=== PATIENT | female | born 1955 | race Caucasian/White ===

== ENCOUNTER 2017-08-15 00:34 | Emergency (ER) | payer MEDICARE, MEDICAID, SELFPAY | END 2017-08-15 03:18 | disposition home or self-care (01) | PROVIDERS: Emergency Provider Emergency Medicine; Visit Provider Emergency Medicine | DX: R10.9 Unspecified abdominal pain (principal); R11.0 Nausea; I10 Essential (primary) hypertension; E78.5 Hyperlipidemia, unspecified; K21.9 Gastro-esophageal reflux disease without esophagitis; F41.9 Anxiety disorder, unspecified; F32.9 Major depressive disorder, single episode, unspecified; Z79.82 Long term (current) use of aspirin; F17.210 Nicotine dependence, cigarettes, uncomplicated; I25.2 Old myocardial infarction; Z79.51 Long term (current) use of inhaled steroids; Z85.72 Personal history of non-Hodgkin lymphomas; Z79.899 Other long term (current) drug therapy; Z88.5 Allergy status to narcotic agent | CPT/HCPCS: 74176; 80053; 82150; 83690; 85025; 99283 ==

== ENCOUNTER → 2017-12-23 11:48 | Outpatient (CLI) | payer MEDICARE, MEDICAID, SELFPAY ==
[2017-12-23 12:28] LABS: Basophils % 0.5 % (0.1-2.0); Eosinophils # 0.1 K/mm3 (0.0-0.4); Eosinophils % 1.5 % (0.1-12.0); Hematocrit 42.4 % (37.0-47.0); Hemoglobin 14.2 g/dL (12.2-16.2); Lymphocytes # 1.5 K/mm3 (0.7-4.5); Lymphocytes % 26.2 K/mm3 (10-50); Mean Corpuscular HGB Conc 33.5 g/dL (31.8-35.4); Mean Corpuscular Hemoglobin 33.1 pg (27.0-31.2); Mean Corpuscular Volume 98.7 fl (81-99); Mean Platelet Volume 7.2 fl (7.4-10.4); Monocytes # 0.5 K/mm3 (0.1-1.0); Monocytes % 8.5 % (1.7-9.3); Neutrophils # 3.5 K/mm3 (1.8-7.8); Neutrophils % 63.2 % (37.0-80.0); Platelet Count 217 K/mm3 (142-424); Red Blood Count 4.29 M/mm3 (4.20-5.40); Red Cell Distribution Width 13.2 % (11.5-17.5); White Blood Count 5.5 K/mm3 (4.8-10.8)
[2017-12-23 14:32] LABS: Alanine Aminotransferase 18 U/L (12-78); Albumin Level 3.8 gm/dL (3.4-5.0); Albumin/Globulin Ratio 1.2 (1.1-1.8); Alkaline Phosphatase 115 U/L (46-116); Anion Gap 16.2 mEq/L (5-15); Bilirubin,Total 0.1 mg/dL (0.2-1.0); Blood Urea Nitrogen 10 mg/dL (7-18); Calcium 9.6 mg/dL (8.5-10.1); Carbon Dioxide 24 mmol/L (21.0-32.0); Chloride 106 mmol/L (98-107); Chol/HDL Ratio 5.5 (1-3.5); Cholesterol 214 mg/dL (140-200); Creatinine,Serum 0.99 mg/dL (0.55-1.02); Estimated Glomerular Filt Rate 56 ml/min (>60); GFR (African American) 68 ML/MIN (>60); Globulin 3.3 gm/dl (1.3-3.2); Glucose 87 mg/dL (74-106); HDL Cholesterol 39 mg/dL (29-89); LDL Cholesterol 123 mg/dL (0-130); Sodium 142 mmol/L (136-145); Total Protein,Serum 7.1 gm/dL (6.4-8.2); Triglycerides 261 mg/dL (30-200); VLDL Cholesterol 52 mg/dL (0-40)
[2017-12-23 14:42] LABS: Aspartate Amino Transferase 11 U/L (15-37); Potassium 4.2 mmoL/L (3.5-5.1)
== END ==
PROVIDERS: Visit Provider Nurse Practitioner Family
DX: I10 Essential (primary) hypertension (principal); E78.4 Other hyperlipidemia; E55.9 Vitamin D deficiency, unspecified
CPT/HCPCS: 36415; 80053; 80061; 85025

== ENCOUNTER → 2018-04-22 12:35 | Outpatient (CLI) | payer MEDICARE, MEDICAID, SELFPAY ==
--- NOTE | 2018-04-22 12:39 | XR_ITS ---
XR DEXA axial skeleton HISTORY: ITS.REASON: POST MENOPAUSAL ORDERING PHYSICIAN: Glory Panda PATIENT AGE: 63 years COMPARISON: 03/12/2016 FINDINGS: The BMD measured at the Left femoral neck is 0.679 g/cm squared with a T score of -2.6. This is considered Osteoporotic according to the World Health Organization criteria. Fracture risk is High. Treatment is advised. There is severe lumbar scoliosis convex left with L1 L4 density of -1.8. The L spine density has decreased by 22% in the hip density is unchanged IMPRESSION: Osteoporosis with high fracture risk. Treatment suggested. Recommend follow-up exam March 2019 Severe lumbar scoliosis convex left
--- NOTE | 2018-04-22 12:40 | MM_ITS ---
MM Dig screening mamm BI w/CAD CAD Screening COMPARISON: Digital mammograms with CAD 04/15/2017 and 03/12/2016 INDICATION: There is a history of breast cancer patient's paternal aunt. TECHNIQUE: Standard CC and MLO images were obtained. R2 CAD reviewed. FINDINGS: Moderate diffuse heterogenic fibroglandular densities are seen throughout both breasts. There are multiple scattered benign-appearing calcifications throughout both breasts. There is no suspicious lesion and there are no suspicious microcalcifications. IMPRESSION: Moderate diffuse breast density with no suspicious lesion seen BI-RADS Category: 2 Benign Finding(s) RECOMMENDED FOLLOW-UP: 1YR - 1 YEAR FOLLOW-UP (A letter has been sent to the patient regarding results of the study.)
== END ==
PROVIDERS: Family Provider Nurse Practitioner Family; PCP Nurse Practitioner Family; Visit Provider Nurse Practitioner Family
DX: Z12.31 Encounter for screening mammogram for malignant neoplasm of breast (principal); Z78.0 Asymptomatic menopausal state
CPT/HCPCS: 77067; 77080

== ENCOUNTER → 2018-06-30 15:30 | Outpatient (CLI) | payer MEDICARE, MEDICAID, SELFPAY ==
[2018-06-30 16:02] LABS: Basophils % 0.6 % (0.1-2.0); Eosinophils % 0.3 % (0.1-12.0); Hematocrit 37.2 % (37.0-47.0); Hemoglobin 13.3 g/dL (12.2-16.2); Lymphocytes # 1.7 K/mm3 (0.7-4.5); Lymphocytes % 33.6 K/mm3 (10-50); Mean Corpuscular HGB Conc 35.8 g/dL (31.8-35.4); Monocytes # 0.3 K/mm3 (0.1-1.0); Monocytes % 6.2 % (1.7-9.3); Neutrophils % 59.3 % (37.0-80.0); Platelet Count 184 K/mm3 (142-424); Red Blood Count 3.92 M/mm3 (4.20-5.40); Red Cell Distribution Width 13.1 % (11.5-17.5)
[2018-06-30 18:00] LABS: Alanine Aminotransferase 17 U/L (12-78); Albumin/Globulin Ratio 1.3 (1.1-1.8); Alkaline Phosphatase 116 U/L (46-116); Anion Gap 14.8 mEq/L (5-15); Aspartate Amino Transferase 11 U/L (15-37); Bilirubin,Total 0.3 mg/dL (0.2-1.0); Blood Urea Nitrogen 9 mg/dL (7-18); Calcium 9.1 mg/dL (8.5-10.1); Carbon Dioxide 23 mmol/L (21.0-32.0); Chloride 108 mmol/L (98-107); Chol/HDL Ratio 5.3 (1-3.5); Cholesterol 210 mg/dL (140-200); Creatinine,Serum 1.02 mg/dL (0.55-1.02); Estimated Glomerular Filt Rate 54 ml/min (>60); GFR (African American) 66 ML/MIN (>60); Globulin 3.1 gm/dl (1.3-3.2); Glucose 99 mg/dL (74-106); HDL Cholesterol 40 mg/dL (29-89); LDL Cholesterol 126 mg/dL (0-130); Potassium 3.8 mmoL/L (3.5-5.1); Sodium 142 mmol/L (136-145); Total Protein,Serum 7.1 gm/dL (6.4-8.2); Triglycerides 220 mg/dL (30-200); VLDL Cholesterol 44 mg/dL (0-40)
[2018-07-02 18:43] LABS: Vitamin D 25 Hydroxy 36.2 ng/mL (30.0-100.0)
== END ==
PROVIDERS: Visit Provider Nurse Practitioner Family
DX: E55.9 Vitamin D deficiency, unspecified (principal); I10 Essential (primary) hypertension; E78.49 Other hyperlipidemia
CPT/HCPCS: 36415; 80053; 80061; 82652; 85025

== ENCOUNTER → 2018-10-02 13:38 | Outpatient (CLI) | payer MEDICARE, MEDICAID, SELFPAY ==
[2018-10-02 14:33] LABS: Basophils % 0.2 % (0.1-2.0); Eosinophils % 0.2 % (0.1-12.0); Hematocrit 40.1 % (37.0-47.0); Hemoglobin 13.5 g/dL (12.2-16.2); Lymphocytes # 1.5 K/mm3 (0.7-4.5); Lymphocytes % 31.8 % (10-50); Mean Corpuscular HGB Conc 33.6 g/dL (31.8-35.4); Mean Corpuscular Hemoglobin 32.4 pg (27.0-31.2); Mean Corpuscular Volume 96.6 fl (81-99); Mean Platelet Volume 6.7 fl (7.4-10.4); Monocytes # 0.3 K/mm3 (0.1-1.0); Monocytes % 6.2 % (1.7-9.3); Neutrophils % 61.6 % (37.0-80.0); Platelet Count 215 K/mm3 (142-424); Red Blood Count 4.15 M/mm3 (4.20-5.40); Red Cell Distribution Width 13.8 % (11.5-17.5); White Blood Count 4.8 K/mm3 (4.8-10.8)
[2018-10-02 15:13] LABS: Alanine Aminotransferase 20 U/L (12-78); Albumin Level 3.9 gm/dL (3.4-5.0); Albumin/Globulin Ratio 1.3 (1.1-1.8); Alkaline Phosphatase 91 U/L (46-116); Anion Gap 17.1 mEq/L (5-15); Aspartate Amino Transferase 13 U/L (15-37); Bilirubin,Total 0.3 mg/dL (0.2-1.0); Blood Urea Nitrogen 12 mg/dL (7-18); Calcium 9.2 mg/dL (8.5-10.1); Carbon Dioxide 23 mmol/L (21.0-32.0); Chloride 107 mmol/L (98-107); Cholesterol 217 mg/dL (140-200); Creatinine,Serum 0.99 mg/dL (0.55-1.02); Estimated Glomerular Filt Rate 56 ml/min (>60); GFR (African American) 68 ML/MIN (>60); Globulin 2.9 gm/dl (1.3-3.2); Glucose 99 mg/dL (74-106); HDL Cholesterol 43 mg/dL (29-89); LDL Cholesterol 135 mg/dL (0-130); Potassium 4.1 mmoL/L (3.5-5.1); Sodium 143 mmol/L (136-145); Total Protein,Serum 6.8 gm/dL (6.4-8.2); Triglycerides 193 mg/dL (30-200); VLDL Cholesterol 39 mg/dL (0-40)
[2018-10-03 11:05] LABS: Vitamin D 25 Hydroxy 34.3 ng/mL (30.0-100.0)
== END ==
PROVIDERS: PCP Nurse Practitioner Family; Visit Provider Nurse Practitioner Family
DX: I10 Essential (primary) hypertension (principal); E55.9 Vitamin D deficiency, unspecified; E78.49 Other hyperlipidemia
CPT/HCPCS: 36415; 80053; 80061; 82652; 85025

== ENCOUNTER → 2019-04-24 15:45 | Outpatient (CLI) | payer MEDICARE, MEDICAID, SELFPAY ==
[2019-04-24 16:22] LABS: Basophils % 0.3 % (0.1-2.0); Hematocrit 40.2 % (37.0-47.0); Hemoglobin 13.4 g/dL (12.2-16.2); Lymphocytes # 1.5 K/mm3 (0.7-4.5); Mean Corpuscular HGB Conc 33.4 g/dL (31.8-35.4); Mean Corpuscular Hemoglobin 32.4 pg (27.0-31.2); Mean Platelet Volume 6.8 fl (7.4-10.4); Monocytes # 0.4 K/mm3 (0.1-1.0); Monocytes % 7.1 % (1.7-9.3); Neutrophils # 3.4 K/mm3 (1.8-7.8); Neutrophils % 64.7 % (37.0-80.0); Platelet Count 214 K/mm3 (142-424); Red Blood Count 4.15 M/mm3 (4.20-5.40); Red Cell Distribution Width 13.5 % (11.5-17.5); White Blood Count 5.2 K/mm3 (4.8-10.8)
[2019-04-24 18:16] LABS: Alanine Aminotransferase 24 U/L (12-78); Albumin/Globulin Ratio 1.3 (1.1-1.8); Alkaline Phosphatase 97 U/L (46-116); Anion Gap 16.1 mEq/L (5-15); Aspartate Amino Transferase 10 U/L (15-37); Bilirubin,Total 0.2 mg/dL (0.2-1.0); Blood Urea Nitrogen 11 mg/dL (7-18); Calcium 9.5 mg/dL (8.5-10.1); Carbon Dioxide 23 mmol/L (21.0-32.0); Chloride 108 mmol/L (98-107); Chol/HDL Ratio 3.9 (1-3.5); Cholesterol 177 mg/dL (140-200); Creatinine,Serum 1.08 mg/dL (0.55-1.02); Estimated Glomerular Filt Rate 51 ml/min (>60); GFR (African American) 61 ML/MIN (>60); Glucose 89 mg/dL (74-106); HDL Cholesterol 45 mg/dL (29-89); LDL Cholesterol 89 mg/dL (0-130); Potassium 4.1 mmoL/L (3.5-5.1); Sodium 143 mmol/L (136-145); Triglycerides 213 mg/dL (30-200); VLDL Cholesterol 43 mg/dL (0-40)
[2019-04-26 09:47] LABS: Vitamin D 25 Hydroxy 28.1 ng/mL (30.0-100.0)
== END ==
PROVIDERS: Visit Provider Nurse Practitioner Family
DX: E78.49 Other hyperlipidemia (principal); E55.9 Vitamin D deficiency, unspecified
CPT/HCPCS: 36415; 80053; 80061; 82652; 85025

== ENCOUNTER → 2019-08-09 10:58 | Outpatient (CLI) | payer MEDICARE, MEDICAID, SELFPAY ==
--- NOTE | 2019-08-09 11:02 | MM_ITS ---
PROCEDURE: MM DIG SCREENING MAMM BI W/CAD CLINICAL INDICATION: SCREENING There is a history of breast cancer patient's paternal aunt. COMPARISON: [facility] DIG MAMM-SCREEN CHASE from 03/12/2016 [facility] DIG MAMM-SCREEN CHASE W/CAD from 04/15/2017 [facility] MM Dig screening mamm BI w/CAD from 04/22/2018 TECHNIQUE: Standard CC and MLO images were obtained. R2 CAD reviewed. FINDINGS: Moderate somewhat heterogenic fibroglandular densities are seen the central portions of both breasts and the findings of bilateral and symmetrical. There are multiple scattered benign-appearing micro and macrocalcifications in each breast. There is a mole marker left breast. There is faint arterial calcification in each breast. There is a stable asymmetric density upper left breast only definitely seen on the MLO view. There is no suspicious lesion and no suspicious microcalcifications. IMPRESSION: Moderate heterogenic breast density with no suspicious lesions seen BI-RAD Category: 2 Benign Finding(s) FOLLOW-UP: 1YR 1 Year Follow-up (A letter has been sent to the patient regarding results of the study.) Dictated by: Dr. Polo Diaz MD 08/13/2019 14:[address] Polo Diaz MD in [place] 08/13/2019 14:41
== END ==
PROVIDERS: PCP Nurse Practitioner Family; Visit Provider Nurse Practitioner Family
DX: Z12.31 Encounter for screening mammogram for malignant neoplasm of breast (principal)
CPT/HCPCS: 77067

== ENCOUNTER → 2020-03-18 15:04 | Outpatient (POV) | payer MEDICARE, MEDICAID, SELFPAY | PROVIDERS: PCP Nurse Practitioner Family; Visit Provider Nurse Practitioner Family | DX: Z00.00 Encounter for general adult medical examination without abnormal findings (principal) ==

== ENCOUNTER → 2020-03-21 10:31 | Outpatient (CLI) | payer MEDICARE, MEDICAID, SELFPAY ==
[2020-03-21 10:59] LABS: Basophils % 0.7 % (0.1-2.0); Eosinophils % 0.3 % (0.1-12.0); Hematocrit 37.5 % (37.0-47.0); Hemoglobin 12.8 g/dL (12.2-16.2); Lymphocytes # 2.4 K/mm3 (0.7-4.5); Lymphocytes % 39.7 % (10-50); Mean Corpuscular Hemoglobin 32.9 pg (27.0-31.2); Mean Corpuscular Volume 96.7 fl (81-99); Mean Platelet Volume 7.9 fl (7.4-10.4); Monocytes # 0.4 K/mm3 (0.1-1.0); Monocytes % 6.4 % (1.7-9.3); Neutrophils # 3.2 K/mm3 (1.8-7.8); Neutrophils % 52.9 % (37.0-80.0); Platelet Count 166 K/mm3 (142-424); Red Blood Count 3.88 M/mm3 (4.20-5.40); Red Cell Distribution Width 14.1 % (11.5-17.5)
[2020-03-21 11:22] LABS: Chloride 103 mmol/L (98-107)
[2020-03-21 11:23] LABS: Potassium 3.7 mmoL/L (3.5-5.1); Sodium 136 mmol/L (136-145)
[2020-03-21 11:25] LABS: Alanine Aminotransferase 18 U/L (12-78); Alkaline Phosphatase 76 U/L (38-126); Anion Gap 12.7 mEq/L (5-15); Aspartate Amino Transferase 21 U/L (14-36); Bilirubin,Total 0.3 mg/dl (0.2-1.3); Blood Urea Nitrogen 9 mg/dl (7-17); Carbon Dioxide 24 mmol/L (22.0-30.0); Estimated Glomerular Filt Rate 55 ml/min (>60); GFR (African American) 67 ML/MIN (>60)
[2020-03-21 11:26] LABS: Albumin Level 4.2 g/dl (3.5-5.0); Albumin/Globulin Ratio 1.7 (1.1-1.8); Calcium 9.1 mg/dl (8.4-10.2); Globulin 2.5 g/dL (1.3-3.2); Glucose 90 mg/dl (74-100); Total Protein,Serum 6.7 g/dl (6.3-8.2)
[2020-03-22 18:05] LABS: Deamidated Gliadin Abs, IgA 3 units (0-19); Deamidated Gliadin Abs, IgG 1 units (0-19); Endomysial IgA Antibody Negative (Negative); Tissue Transglutaminase IgA Ab <2 U/mL (0-3); Tissue Transglutaminase IgG Ab 2 U/mL (0-5)
[2020-03-23 08:51] LABS: Reticulin IgA Antibody Negative titer (Neg:<1:2.5)
[2020-03-26 05:38] LABS: Saccharomyces cerevisiae, IgA <20.0 Units (0.0-24.9); Saccharomyces cerevisiae, IgG <20.0 Units (0.0-24.9)
== END ==
PROVIDERS: Visit Provider Nurse Practitioner Family
DX: R10.84 Generalized abdominal pain (principal); R14.0 Abdominal distension (gaseous)
CPT/HCPCS: 36415; 80053; 83516; 85025; 86255; 86256; 86671

== ENCOUNTER → 2020-03-26 08:48 | Outpatient (CLI) | payer MEDICARE, MEDICAID, SELFPAY ==
--- NOTE | 2020-03-26 08:58 | CT_ITS ---
PROCEDURE: CT ABDOMEN PELVIS W CON CLINICAL INDICATION: ABD PAIN BLOATING DIARRHEA History of non-Hodgkin's lymphoma. COMPARISON: ABDPELW/O CT ABD PELVIS W/O CONTRAST from 08/15/2017 TECHNIQUE: IV Contrast: 75ML OPTIRAY 350 Oral Contrast 450ml Redicat Axial images obtained with sagittal and coronal reformats. All CT scans at the facility use one or more dose reduction, viz: automated exposure control, ma/kV adjustment per patient size (including targeted exams where dose is matched to indication, i.e. head), or iterative reconstruction technique. FINDINGS: LOWER THORAX: No acute finding. Fibrotic atelectatic changes in the right middle lobe inferiorly and in left lung base has increased since the prior exam. Redemonstrated a moderate size hiatal hernia. ABDOMEN & PELVIS: Hepatobiliary: There is decreased attenuation of the liver consistent with steatosis. There is no demonstrated discrete hepatic lesion. The gallbladder is surgically absent. The bile ducts are within normal limits. Pancreas: There is no demonstrated pancreatic mass or cyst. No ductal dilatation. Spleen: The spleen is not enlarged. Unremarkable. Adrenals: The adrenal glands are normal. Kidneys, ureters and bladder: Both kidneys have normal morphology. The left kidney is smaller compared to the right. Again noted a small nonobstructing left renal calculus. Mildly dilated partial left extrarenal pelvis. There is no hydronephrosis. Both ureters have a normal course and caliber. The urinary bladder is unremarkable with uniform wall thickness. No ureteral or bladder calculus is identified. Gastrointestinal: The stomach and small bowel are unremarkable with no evidence of obstruction or inflammation. Moderate amount of mixed liquid and formed stool is seen in the colon including the rectosigmoid. No demonstrated mucosal thickening or evidence of bowel obstruction. No findings to suggest acute appendicitis. Reproductive organs: Possible prior hysterectomy. Unremarkable adnexal regions. Lymphatic system: There is no adenopathy demonstrated within the abdomen/pelvis. Vasculature: There is diffuse atheromatous calcification and tortuosity of the abdominal aorta and iliac arteries. There is no aortic aneurysm. Peritoneum: No free fluid, free air or inflammation. Abdominal wall and musculoskeletal: Redemonstrated severe S-shaped curvature of the thoracolumbar spine. No acute fracture. Multilevel moderately advanced degenerative disc/endplate spondylosis. Bilateral SI joint arthrosis. A small umbilical and left inguinal hernia containing fat. IMPRESSION: 1.Moderate-size hiatal hernia. Nonobstructing left renal calculus. 2. Moderate amount of mixed liquid and formed stool is seen in the colon and rectosigmoid, consistent with given history of diarrhea. No demonstrated abnormal mucosal thickening or evidence of bowel obstruction. 3. Severe scoliosis. Multilevel moderately advanced degenerative lumbosacral spondylosis. Dictated by: Reynaldo Burt 03/26/2020 10:18 Electronically signed by Reynaldo Burt in [facility] 03/26/2020 10:18
== END ==
PROVIDERS: PCP Nurse Practitioner Family; Visit Provider Nurse Practitioner Family
DX: R10.84 Generalized abdominal pain (principal); R14.0 Abdominal distension (gaseous); R19.7 Diarrhea, unspecified
CPT/HCPCS: 74177; Q9967

== ENCOUNTER → 2020-05-09 10:29 | Outpatient (POV) | payer MEDICARE, MEDICAID, SELFPAY ==
[2020-05-09 10:51] VITALS: BP 142/77; PULSE 77; RESP 18; TEMP 36.6; O2SAT 98; BMI 23.1
--- NOTE | 2020-05-09 12:12 | HMH.PMCON ---
Assessment and Plan (1) Sacroiliitis Current visit: Yes Status: Chronic Category: Medical Code(s): M46.1 - Sacroiliitis, not elsewhere classified (2) Low back pain Current visit: Yes Status: Chronic Category: Medical Code(s): M54.5 - Low back pain (3) Lumbar radiculopathy, chronic Current visit: Yes Status: Chronic Category: Medical Code(s): M54.16 - Radiculopathy, lumbar region (4) Scoliosis Current visit: Yes Status: Chronic Category: Medical Code(s): M41.9 - Scoliosis, unspecified - Assessment and plan all Dx Assessment and Plan for all problems:: We will schedule the patient for bilateral SI joint injections. She does have notable tenderness over bilateral SI joints and a positive Clementina, Anderson's, distraction test. We will need to contact her oncologist to make sure she is able to have corticosteroids with her injection. If she is unable to undergo injections with corticosteroids, we will use lidocaine only. Patient did have questions concerning spinal cord stimulation. She was given educational information today. If the injections do not give her relief, this may be an option for her in the future. She does have significant scoliosis. She has been instructed to contact clinic if she has any concerns before next appointment. The patient and I specifically discussed risk factors for COVID19. These risks include, but are not limited to age greater than 60, heart or lung disease, diabetes, immunosuppression, and travel. We also discussed NSAIDs may worsen COVID19 infection or symptoms. Patient should not use NSAIDs to treat COVID19 signs or symptoms. Patient was also informed that any type of corticosteroid of any form (oral or injection) will decrease the patient's immune system response and may increase the likelihood of COVID19 infection [address] symptoms[address] Sue has reviewed this note and agrees with this plan of care. This note was dictated using voice recognition software and make contain errors or omissions. HPI - Data of Consult Patient: new to practice Consult date: 05/09/20 Requesting Physician: Tena Cantu APRN Primary Care Provider: Glory Panda - Consult Narrative Reason for consult: Chronic low back pain History of present illness: Ms. Arredondo is a 65 year old female who presents today for consultation for chronic low back pain. Patient was previously seen with Dr. Downey for chronic pain. Unfortunately, patient says she filled a pill count in his office and was discharged. She was getting oral opiates as well as injective therapy. Patient says she was getting trigger point and SI injections there. Patient does have imaging that does show scoliosis. She does have notable scoliosis. She also says that she walks with a cane and uses a wheelchair. She says she is having worsening pain into her low back area. She does have multiple comorbidities. She has been treated in the past for non-Hodgkin's lymphoma. She says that her oncologist has her undergoing IV therapy for severe osteoporosis. She says that she is unsure if she is unable to take IV corticosteroids. She says that she has also had medial branch blocks in Dr. Downey's office, however, got little relief with those injections. Patient says she feels that the trigger point injections as well as the SI injections gave her the most relief. She does rate her pain a 6 out of 10 today. She says she feels like she is having a bruising feeling above bilateral butt cheeks . Patient says that the pain is worse with standing and walking and improves with sitting. She has tried physical therapy in the past along with home stretching. She is currently taking diclofenac. Patient does understand that we will not be providing any type of oral opiates. She is in agreement she would like to try injective therapies. CC: Tena Cantu APRN [facility] History I have reviewed the patient's past medical history: Yes Medical History
== END ==
PROVIDERS: PCP Nurse Practitioner Family; Visit Provider Clinical Nurse Specialist Family Health
DX: M46.1 Sacroiliitis, not elsewhere classified (principal); M54.5 Low back pain; M54.16 Radiculopathy, lumbar region; M41.9 Scoliosis, unspecified
CPT/HCPCS: 99202

== ENCOUNTER → 2020-05-24 09:19 | Day surgery (SDC) | payer MEDICARE, MEDICAID, SELFPAY ==
[2020-05-24 10:03] VITALS: BP 128/71; PULSE 69; RESP 17; TEMP 36.1; O2SAT 97; BMI 29.0
[2020-05-24 10:56] VITALS: BP 132/74; PULSE 71; RESP 18; O2SAT 98
--- NOTE | 2020-05-24 11:15 | HMH.PMPROC ---
- Procedure Date: 05/24/20 Time: 11:15 Anesthesiologist:: Todd Sue MD Complications:: None Pre-procedure Diagnosis:: Sacroiliitis Post-procedure Diagnosis:: Same Indications for Procedure:: Patient is a pleasant 65-year-old white female who we are treating for bilateral hip pain. She is tender over both SI joints. She also has severe scoliosis. She was discharged from Dr. Downey's practice for missing a pill count. She was on [place] at that time I believe. She has a positive Anderson's test bilaterally. She has a positive SI joint compression test bilaterally. She has a positive Clementina test bilaterally. I believe she would benefit from bilateral SI joint injections under fluoroscopy. We will do this today. Procedure Details:: B/L SI joint injection under fluoroscopy Informed consent was obtained and the risks and benefits of the procedure was explained to the patient. The patient was taken to the procedure room and placed prone on the procedure table. The patient was prepped using ChloraPrep. The skin and subcutaneous tissues overlying the SI joints were anesthetized using lidocaine. I placed a 22-gauge needle first in the left SI joint and second in the right SI joint. Needle placement was confirmed with dye. After this we injected 5 mL bupivacaine 0.25% and Depo-Medrol 40 mg into each SI joint. Patient tolerated the procedure well with no complication. Plan and Disposition:: Given the severity of her scoliosis and lumbar spine I believe she would benefit from intrathecal therapy. We will need a psychological evaluation as she has previously been discharged from a pain clinic to see if she would be a candidate.
== END ==
PROVIDERS: Visit Provider Anesthesiology
DX: M46.1 Sacroiliitis, not elsewhere classified (principal); Z72.0 Tobacco use; I10 Essential (primary) hypertension; E78.5 Hyperlipidemia, unspecified; K21.9 Gastro-esophageal reflux disease without esophagitis; F41.9 Anxiety disorder, unspecified; F31.9 Bipolar disorder, unspecified; Z85.028 Personal history of other malignant neoplasm of stomach; Z90.49 Acquired absence of other specified parts of digestive tract; Z90.711 Acquired absence of uterus with remaining cervical stump; Z79.899 Other long term (current) drug therapy
CPT/HCPCS: 27096; G0260; J1030; Q9966

== ENCOUNTER → 2020-06-13 11:04 | Outpatient (POV) | payer MEDICARE, MEDICAID, SELFPAY ==
[2020-06-13 11:36] VITALS: BP 123/77; PULSE 74; RESP 18; TEMP 36.8; O2SAT 98; BMI 29.9
--- NOTE | 2020-06-13 11:55 | HMH.PAINSOAP ---
[facility] Pain Management SOAP Note Subjective:: Patient is a 65-year-old white female who presents today for follow-up. She has been treated for chronic low back pain with bilateral hip pain. She has severe scoliosis as well and has degenerative disc disease of her lumbar spine. She was treated with bilateral SI joint injections and did get some relief, however, her pain is continuing. She would like to repeat the bilateral SI joint injections. She was seeing Dr. Downey in the past for pain management, however, she missed a pill count. As result she was discharged from their clinic. She was on [place] at that time. The patient did discuss intrathecal therapy with Dr. Villegas at her last visit. The patient was interested in this. She has had injection therapy on multiple occasions in the past and does get relief, however, the relief is only short-term. She does rate her pain a 6 out of 10 today. Her pain is worse with standing and walking and does not necessarily improve with sitting. Patient did discuss a psychological evaluation with her therapist, however, the office does not provide psychological evaluations for implanted devices. As result, she is here today to discuss a consult with a another therapist. Review of Systems General: No recent weight changes, no fever, no sleep disturbances Respiratory: No cough, no shortness of air, no recurring pulmonary infections Cardiovascular/peripheral vascular: No chest pain, no palpitations, no edema, no shortness of breath Gastrointestinal: No new onset incontinence, normal bowel movements reported Genitourinary: No new onset incontinence Musculoskeletal: Low back pain, bilateral hip pain, bilateral buttock pain, bilateral lower extremity pain Psychiatric: Normal mood/affect Neurological: [Denies weakness in extremities], [denies balance issues] Objective:: Physical exam General: Alert and oriented x3, no acute distress, pleasant and cooperative, [on room air] Lungs: Respirations even and unlabored, symmetrical chest expansion Eyes: PERRL Musculoskeletal: Flexion and extension of lumbar spine somewhat guarded secondary to pain, deep tendon reflexes normal, strength in upper and lower extremities [5/5], [abnormal gait noted], positive distraction test, positive Anderson's test, positive compression test Neurological: Speech clear, security officer equal, no gross sensory deficit Assessment:: Degenerative disc disease lumbar spine with lumbar radiculopathy symptoms, bilateral sacroiliitis, scoliosis Plan:: Dr. Flores did discuss intrathecal therapy with the patient. She and I discussed it as well today. We will schedule her for psychological evaluation with Dr. Marquez. We will also schedule her for repeat bilateral SI joint injections. We will see her back in the clinic after psychological evaluation and injections to discuss a further plan of care. She has been instructed to contact the clinic if she has any concerns for next appointment. The patient and I specifically discussed risk factors for COVID19. These risks include, but are not limited to age greater than 60, heart or lung disease, diabetes, immunosuppression, and travel. We also discussed NSAIDs may worsen COVID19 infection or symptoms. Patient should not use NSAIDs to treat COVID19 signs or symptoms. Patient was also informed that any type of corticosteroid of any form (oral or injection) will decrease the patient's immune system response and may increase the likelihood of COVID19 infection and symptoms.Dr. Sue has reviewed this note and agrees with this plan of care. This note was dictated using voice recognition software and make contain errors or omissions. [facility] History I have reviewed the patient's past medical history: Yes Medical History: Reports:: Anxiety, Arrhythmia, Cancer (stomach), Hyperlipidemia, Hypertension, Osteoporosis Denies:: Diabetes Mellitus Type 1, Diabetes Mellitus Type 2, MRSA, Seizures *Have you ever received
== END ==
PROVIDERS: Visit Provider Clinical Nurse Specialist Family Health
DX: M51.16 Intervertebral disc disorders with radiculopathy, lumbar region (principal); M46.1 Sacroiliitis, not elsewhere classified; M41.9 Scoliosis, unspecified
CPT/HCPCS: 99212

== ENCOUNTER 2020-06-21 13:00 | Day surgery (SDC) | payer MEDICARE, MEDICAID, SELFPAY ==
[2020-06-21 13:54] VITALS: BP 120/72; PULSE 75; RESP 18; TEMP 36.4; O2SAT 98; BMI 30.1
--- NOTE | 2020-06-21 14:37 | HMH.PMPROC ---
- Procedure Date: 06/21/20 Time: 14:37 Anesthesiologist:: Todd Sue MD Complications:: None Pre-procedure Diagnosis:: Sacroiliitis Post-procedure Diagnosis:: Same Indications for Procedure:: This patient was a 65-year-old white female who we are treating for bilateral hip pain as well as low back pain with severe scoliosis and degenerative disc disease of lumbar spine. She did well with her last SI joint injections. We will repeat these injections today as she still has some residual pain. She is tender over both SI joints. She is positive Anderson's test bilaterally. She has a positive Clementina test bilaterally. She has positive SI joint compression test bilaterally. We will do bilateral SI joint injections today to help her with her pain symptoms. Procedure Details:: B/L SI joint injection under fluoroscopy Informed consent was obtained and the risks and benefits of the procedure was explained to the patient. The patient was taken to the procedure room and placed prone on the procedure table. The patient was prepped using ChloraPrep. The skin and subcutaneous tissues overlying the SI joints were anesthetized using lidocaine. I placed a 22-gauge needle first in the left SI joint and second in the right SI joint. Needle placement was confirmed with dye. After this we injected 5 mL bupivacaine 0.25% and Depo-Medrol 40 mg into each SI joint. Patient tolerated the procedure well with no complication. Plan and Disposition:: We will follow-up with her in 2 weeks. Will reevaluate symptoms at that time. We will also follow-up on her psychological evaluation as she may be a candidate for intrathecal therapy. She has missed a pill count previously with Dr. Downey. She may be a candidate for nonnarcotic therapy all depending on her psychological evaluation.
[2020-06-21 14:41] VITALS: BP 117/89; BP 118/78; PULSE 85; PULSE 89; RESP 18; O2SAT 98
[2020-06-21 14:53] VITALS: BP 135/53; PULSE 64; RESP 18; O2SAT 98
== END 2020-06-21 14:54 | disposition home or self-care (01) ==
LOC: SC.PAINP 13:02
PROVIDERS: Visit Provider Anesthesiology
DX: M46.1 Sacroiliitis, not elsewhere classified (principal); I10 Essential (primary) hypertension; F41.9 Anxiety disorder, unspecified
CPT/HCPCS: 27096; G0260; J1030; Q9966

== ENCOUNTER 2020-07-11 11:33 | Emergency (ER) | payer MEDICARE, MEDICAID, SELFPAY ==
[2020-07-11 12:10] VITALS: BP 131/76; PULSE 77; RESP 14; TEMP 36.7; O2SAT 96; BMI 23.3
--- NOTE | 2020-07-11 12:45 | HMH.EDUTC ---
[facility] [place] Disposition Clinical Impression: UTI (urinary tract infection) Qualifiers: Urinary tract infection type: acute cystitis Hematuria presence: with hematuria Qualified Code(s): N30.01 - Acute cystitis with hematuria Disposition: Home, Self-Care Condition on Discharge: Good Instructions: Urinary Tract Infection, DI for Urinary Tract Infection (UTI) Additional Instructions: Drink plenty of fluids. Take tylenol for pain or fever. Take the medications as directed. Follow up with your regular doctor. GO TO THE ER FOR ANY WORSENING SYMPTOMS Prescriptions: Sulfamethoxazole/Trimethoprim [Bactrim DS tablet] 1 each PO BID 7 Days #14 tab Transmission Status: Received by [id number] Referrals: PCP,No [Primary Care Provider] - Time of Disposition: 12:49 Medical Decision Making - Medical Records Medical records reviewed: No: I reviewed the patient's medical records. - Damian Inquiry Pt receiving controlled substance: No Vital Signs: 07/11/20 12:10 07/11/20 12:51 Temperature 98.1 F 98.1 F Temperature Source Oral Pulse Rate 77 Pulse Rate [Right Brachial] 77 Respiratory Rate 14 14 Blood Pressure 131/76 Blood Pressure [Right Arm] 131/76 Blood Pressure Mean [Right Arm] 94 Blood Pressure Source [Right Arm] Automatic Cuff Blood Pressure Position [Right Arm] Sitting 02 Sat by Pulse Oximetry 96 Oxygen Delivery Method Room Air - Lab Data Lab results reviewed: Yes: I reviewed the patient's lab results. Lab Results 07/11/20 12:03: Urine Color Yellow, Urine Appearance Clear, Urine pH 8.5, Ur Specific [place] 1.015, Urine Protein Negative, Urine Glucose (UA) Negative, Urine Ketones Negative, Urine Blood 1+, Urine Nitrate Negative, Urine Bilirubin Negative, Urine Urobilinogen 0.2, Ur Leukocyte Esterase 1+ A Orders (Tests/Meds): ORDERS Category Date Time Status Urine Culture Stat Micro 07/11/20 12:00 Received [facility] [place] HPI - General Stated complaint: Stomach discomfort Time Seen by Provider: 07/11/20 12:25 Mode of Arrival: Ambulatory Source of Information: Patient Limitations: No Limitations Description of Symptoms (Recalled from Triage Doc. by RN): PATIENT C/O LOWER ABD AND BACK PAIN WITH INCONTINENCE THIS MORNING HEENT Symptoms (Recalled from RN notes): No Resp Symptoms (Recalled from RN notes): No Skin Symptoms (Recalled from RN notes): No MS Symptoms (Recalled from RN notes): No Functional Status (Recalled from RN notes): WNL - History of Present Illness Provider Complaint: She states that she has been having low back pain, lower abdominal pain and some trouble with urinary incontinence for the past several days. - Related Data Home Medications Medication Instructions Recorded Confirmed alprazolam 0.5 mg tablet 0.5 mg PO DAILY 08/09/19 06/21/20 aspirin 81 mg tablet,delayed 81 mg PO DAILY 08/09/19 06/21/20 release baclofen 10 mg tablet 10 mg PO DAILY 08/09/19 06/21/20 dicyclomine 20 mg tablet 20 mg PO BID 08/09/19 06/21/20 escitalopram oxalate 10 mg tablet 10 mg PO DAILY 08/09/19 06/21/20 escitalopram oxalate 20 mg tablet 10 mg PO DAILY 08/09/19 06/21/20 esomeprazole magnesium 40 mg 40 mg PO DAILY 08/09/19 06/21/20 capsule,delayed release lamotrigine 200 mg tablet 200 mg PO DAILY 08/09/19 06/21/20 ondansetron HCl 8 mg tablet 8 mg PO BID PRN 08/09/19 06/21/20 pentosan polysulfate sodium 100 mg 100 mg PO TID 08/09/19 06/21/20 capsule propranolol 60 mg tablet 60 mg PO BID 08/09/19 06/21/20 tolterodine 2 mg tablet 2 mg PO BID 08/09/19 06/21/20 topiramate 100 mg tablet 100 mg PO BID 08/09/19 06/21/20 lidocaine HCL [Xolido] 1 applic TOPICAL BID 05/24/20 06/21/20 Previous Rx's Medication Instructions Recorded hydrocortisone 2.5 % topical cream 1 applic PA QD-BID PRN #30 g 10/18/19 with perineal applicator Sulfamethoxazole/Trimethoprim 1 each PO BID 7 Days #14 tab 07/11/20 [Bactrim DS tablet] Allergies Allergy/AdvReac Type Severity Reaction Sta
[2020-07-11 12:51] VITALS: BP 131/76; PULSE 77; RESP 14; TEMP 36.7; O2SAT 96
[2020-07-11 13:23] LABS: Apearance,Urine Clear (Clear); Color,Urine Yellow (Yellow); PH,Urine 8.5 (5.0-8.5)
[2020-07-11 13:24] LABS: Glucose,Urine (UA) Negative (Negative); Ketones,Urine Negative (Negative); Protein,Urine Negative (Negative); Specific Gravity, Urine 1.015 (1.005-1.030)
[2020-07-11 13:25] LABS: Bilirubin,Urine Negative (Negative); Blood, Urine 1+ (Negative)
[2020-07-11 13:26] LABS: UTC Leukocyte Esterase,Urine 1+ (Negative); UTC Nitrate,Urine Negative (Negative); Urobilinogen,Urine 0.2 EU/dl (0.2)
== END 2020-07-11 13:05 | disposition home or self-care (01) ==
PROVIDERS: Emergency Provider Nurse Practitioner Family
DX: N30.01 Acute cystitis with hematuria (principal); E78.5 Hyperlipidemia, unspecified; I10 Essential (primary) hypertension; M81.0 Age-related osteoporosis without current pathological fracture; F17.210 Nicotine dependence, cigarettes, uncomplicated; Z90.49 Acquired absence of other specified parts of digestive tract; Z90.79 Acquired absence of other genital organ(s); Z79.899 Other long term (current) drug therapy
CPT/HCPCS: 81003; 87086; 99201

== ENCOUNTER 2020-07-11 13:12 | Emergency (ER) | payer MEDICARE, MEDICAID, SELFPAY ==
[2020-07-11 13:12] VITALS: BP 159/58; PULSE 69; RESP 18; TEMP 36.5; O2SAT 97; BMI 31.1
--- NOTE | 2020-07-11 14:10 | CT_ITS ---
PROCEDURE: CT ABDOMEN PELVIS WO CON CLINICAL INDICATION: renal lithiasis Abdomen and flank pain COMPARISON: CT CT ABDOMEN PELVIS W CON from 03/26/2020 TECHNIQUE: Axial images obtained with sagittal and coronal reformats. All CT scans at the facility use one or more dose reduction, viz: automated exposure control, ma/kV adjustment per patient size (including targeted exams where dose is matched to indication, i.e. head), or iterative reconstruction technique. FINDINGS: LOWER THORAX: Scarring is present in the lung bases. There is a medium-sized hiatal hernia. There is mild thickening of the pericardium. ABDOMEN & PELVIS: Prior cholecystectomy. The liver, spleen, adrenal glands, and pancreas have an unremarkable appearance. There are 2 stones in the lower pole of the left kidney measuring 3 and 4 mm. No hydronephrosis. No ureteral calculi. The urinary bladder has an unremarkable appearance. No evidence of appendicitis. No intestinal obstruction or free air. There has been a prior hysterectomy There is severe lumbar scoliosis convex left with multilevel lumbar spondylosis IMPRESSION: The left nephrolithiasis. No obstructing ureteral calculus. Moderate-sized hiatal hernia. Lumbar scoliosis with degenerative changes of the lumbar spine. Dictated by: Tejas Bagley MD 07/11/2020 15:49 Tejas Bagley MD in [facility] 07/11/2020 15:49
[2020-07-11 14:12] VITALS: BP 133/52; PULSE 68; RESP 20; O2SAT 98
--- NOTE | 2020-07-11 14:12 | HMH.EDGENADL ---
ED Disposition Clinical Impression: Renal lithiasis Urinary tract infection Qualifiers: Urinary tract infection type: acute cystitis Hematuria presence: with hematuria Qualified Code(s): N30.01 - Acute cystitis with hematuria Disposition: Home, Self-Care Condition on Discharge: Good Referrals: PCP,No [Primary Care Provider] - - Critical Care Critical Care Time: No Attestation: On 07/11/20, the high probability of a clinically significant, sudden or life threatening deterioration of the following system(s) required my full and direct attention, intervention and personal management. The time I documented below is in addition to time spent performing reported procedures but includes the following listed in this critical care notation. Medical Decision Making - Medical Records Medical records reviewed: Yes: I reviewed the patient's medical records. MR Comment: Positive UTI in urgent treatment center urinalysis - Damian Inquiry Pt receiving controlled substance: No Vital Signs: 07/11/20 13:12 07/11/20 14:12 Temperature 97.7 F Temperature Source Oral Pulse Rate [Left Radial] 69 68 Respiratory Rate 18 20 Blood Pressure [Right Arm] 159/58 H 133/52 L Blood Pressure Mean [Right Arm] 91 79 Blood Pressure Source [Right Arm] Automatic Cuff Automatic Cuff Blood Pressure Position [Right Arm] Sitting Sitting 02 Sat by Pulse Oximetry 97 98 Oxygen Delivery Method Room Air Room Air Medical Decision Narrative: 65-year-old female who presents after being evaluated in the urgent treatment center diagnosed with urinary tract infection requesting a CT scan for possible renal lithiasis with a history. There was blood in the urinalysis and pain is consistent therefore patient will be CT scan without contrast for evaluation of renal lithiasis. She already has a known urinary tract infection given p.o. antibiotics. CT scan demonstrated no obstructing stone but presence of existing renal lithiasis in the collecting system. Patient is formed of results instructed to continue taking the oral antibiotics and was discharged home in good condition with appropriate return precautions General Adult HPI - General Chief complaint: PAIN Stated complaint: wants a catscan Time Seen by Provider: 07/11/20 14:12 Mode of Arrival: Wheelchair Source of Information: Patient Limitations: No Limitations Description of Symptoms (Recalled from ER Triage Doc. by RN): pt was seen in the [facility] for a [facility]TI but states that she feels that her pain her right side she wants/needs a cat scan. Concerned about about incontience - History of Present Illness HPI narrative: 65-year-old female with right lower abdominal and flank pain with a history of renal lithiasis and current UTI just seen in the urgent treatment center and given antibiotics. Patient has had nausea but no vomiting is tolerating oral intake and has not had fever. Pain is 4 out of 10 at this time does not radiate does not migrate. Onset (ago): day(s) - Related Data Home Medications Medication Instructions Recorded Confirmed alprazolam 0.5 mg tablet 0.5 mg PO DAILY 08/09/19 06/21/20 aspirin 81 mg tablet,delayed 81 mg PO DAILY 08/09/19 06/21/20 release baclofen 10 mg tablet 10 mg PO DAILY 08/09/19 06/21/20 dicyclomine 20 mg tablet 20 mg PO BID 08/09/19 06/21/20 escitalopram oxalate 10 mg tablet 10 mg PO DAILY 08/09/19 06/21/20 escitalopram oxalate 20 mg tablet 10 mg PO DAILY 08/09/19 06/21/20 esomeprazole magnesium 40 mg 40 mg PO DAILY 08/09/19 06/21/20 capsule,delayed release lamotrigine 200 mg tablet 200 mg PO DAILY 08/09/19 06/21/20 ondansetron HCl 8 mg tablet 8 mg PO BID PRN 08/09/19 06/21/20 pentosan polysulfate sodium 100 mg 100 mg PO TID 08/09/19 06/21/20 capsule propranolol 60 mg tablet 60 mg PO BID 08/09/19 06/21/20 tolterodine 2 mg tablet 2 mg PO BID 08/09/19 06/21/20 topiramate 100 mg tablet 100 mg PO BID 08/09/19 06/21/20 lidocaine HCL [Xolido] 1 applic TOPICAL BID 09
[2020-07-11 16:54] VITALS: BP 133/52; PULSE 68; RESP 20; TEMP 36.5; O2SAT 98
== END 2020-07-11 16:56 | disposition home or self-care (01) ==
PROVIDERS: Emergency Provider Student in an Organized Health Care Education/Training Program
DX: N21.0 Calculus in bladder (principal); N30.01 Acute cystitis with hematuria; E78.5 Hyperlipidemia, unspecified; I10 Essential (primary) hypertension; M81.0 Age-related osteoporosis without current pathological fracture; F17.210 Nicotine dependence, cigarettes, uncomplicated; Z79.899 Other long term (current) drug therapy; Z90.49 Acquired absence of other specified parts of digestive tract; Z90.79 Acquired absence of other genital organ(s); Z88.5 Allergy status to narcotic agent
CPT/HCPCS: G0463; 74176; 81003; 87086; 99201; 99282

== ENCOUNTER → 2020-07-18 09:15 | Outpatient (POV) | payer MEDICARE, MEDICAID, SELFPAY ==
[2020-07-18 09:36] VITALS: BP 122/57; PULSE 82; RESP 18; TEMP 36.6; O2SAT 98; BMI 28.0
--- NOTE | 2020-07-18 16:30 | HMH.PAINSOAP ---
[facility] Pain Management SOAP Note Subjective:: Patient is a 65-year-old white female who presents today for follow-up after a psychological evaluation. She is being treated for chronic low back pain as well as severe scoliosis and degenerative disc disease of her lumbar spine. She has had bilateral SI joint injections as well as epidural steroid injections in the past. Patient says she has gotten relief, however, it is only short-term. Patient says that she has tried oral medications along with erbw-xsc-gwhsdyj medications and physical therapy for greater than 6 weeks. She is also tried ice and heat therapies as well as a continued home stretching program and has not gotten any relief. She did discuss possible intrathecal therapy with Dr. STEPHANIE Reyes. Patient would like to proceed. She did undergo the psychological evaluation is here today to discuss the results. She rates her pain a 6 out of 10 today. Review of Systems General: No recent weight changes, no fever, no sleep disturbances Respiratory: No cough, no shortness of air, no recurring pulmonary infections Cardiovascular/peripheral vascular: No chest pain, no palpitations, no edema, no shortness of breath Gastrointestinal: No new onset incontinence, normal bowel movements reported Genitourinary: No new onset incontinence Musculoskeletal: Chronic low back pain with radiation into bilateral lower extremities Psychiatric: Normal mood/affect Neurological: [Denies weakness in extremities], [denies balance issues] Objective:: Physical exam General: Alert and oriented x3, no acute distress, pleasant and cooperative, [on room air] Lungs: Respirations even and unlabored, symmetrical chest expansion Eyes: PERRL Musculoskeletal: Flexion and extension of lumbar spine somewhat guarded secondary to pain, deep tendon reflexes normal, strength in upper and lower extremities [5/5], [abnormal gait noted] Neurological: Speech clear, correspondence review clerk equal, no gross sensory deficit Assessment:: Degenerative disc disease lumbar spine with lumbar radiculopathy symptoms, sacroiliitis Plan:: Patient has tried and failed conservative therapies of injections, [id number]-[id number] medications as well as oral opiates. Patient did previously fill a pill count at Dr. Downey's office. As result she was discharged. Patient may be a candidate for nonnarcotic therapy. Her psychological evaluation did deem her an appropriate candidate, however, there was some concern noted in psychological evaluation of the patient's continued Xanax use for long amount of time. She has been on Xanax for approximately 40 years. This is managed by her psychiatrist according to the patient. I did discuss with the patient that she would need to possibly wean on her Xanax before the intrathecal pump was placed, however, that would be at the discretion of Dr. STEPHANIE Reyes, if the patient does have a successful intrathecal pain pump trial. He did note that she would likely be a nonnarcotic candidate. In this event, she may not need to wean on her Xanax. She would like to proceed with the trial for intrathecal therapy. She says she is not on any anticoagulation therapy. We will plan to see her back in the clinic after her trial to reevaluate her symptoms and discuss her fracture plan of care. The patient has been instructed to contact clinic if she has any concerns before her next appointment. The patient and I specifically discussed risk factors for COVID19. These risks include, but are not limited to age greater than 60, heart or lung disease, diabetes, immunosuppression, and travel. We also discussed NSAIDs may worsen COVID19 infection or symptoms. Patient should not use NSAIDs to treat COVID19 signs or symptoms. Patient was also informed that any type of corticosteroid of any form (oral or injection) will decrease the patient's immune system response and may increase the likelihood of COVID19 infection [address] symptoms[address]. Sue has reviewed this note an
== END ==
PROVIDERS: Visit Provider Clinical Nurse Specialist Family Health
DX: M51.16 Intervertebral disc disorders with radiculopathy, lumbar region (principal); M46.1 Sacroiliitis, not elsewhere classified
CPT/HCPCS: 99212

== ENCOUNTER → 2020-07-23 10:05 | Outpatient (CLI) | payer MEDICARE, MEDICAID, SELFPAY ==
[2020-07-23 10:33] LABS: Basophils % 0.3 % (0.1-2.0); Eosinophils % 0.3 % (0.1-12.0); Hematocrit 39.4 % (37.0-47.0); Hemoglobin 12.2 g/dL (12.2-16.2); Lymphocytes # 1.5 K/mm3 (0.7-4.5); Lymphocytes % 32.1 % (10-50); Mean Corpuscular Volume 100.1 fl (81-99); Mean Platelet Volume 7.5 fl (7.4-10.4); Monocytes # 0.3 K/mm3 (0.1-1.0); Monocytes % 6.8 % (1.7-9.3); Neutrophils # 2.9 K/mm3 (1.8-7.8); Neutrophils % 60.5 % (37.0-80.0); Platelet Count 166 K/mm3 (142-424); Red Blood Count 3.94 M/mm3 (4.20-5.40); Red Cell Distribution Width 14.7 % (11.5-17.5); White Blood Count 4.7 K/mm3 (4.8-10.8)
[2020-07-23 11:09] LABS: Chloride 107 mmol/L (98-107); Potassium 4.3 mmoL/L (3.5-5.1); Sodium 139 mmol/L (136-145)
[2020-07-23 11:11] LABS: Amylase 73 U/L (30-110)
[2020-07-23 11:12] LABS: Alanine Aminotransferase 22 U/L (12-78); Alkaline Phosphatase 80 U/L (38-126); Anion Gap 11.3 mEq/L (5-15); Aspartate Amino Transferase 24 U/L (14-36); Bilirubin,Total 0.3 mg/dl (0.2-1.3); Blood Urea Nitrogen 11 mg/dl (7-17); Calcium 9.8 mg/dl (8.4-10.2); Carbon Dioxide 25 mmol/L (22.0-30.0); Estimated Glomerular Filt Rate 50 ml/min (>60); GFR (African American) 60 ML/MIN (>60); Glucose 99 mg/dl (74-100); Lipase 187 U/L (23-300)
[2020-07-23 11:13] LABS: Albumin Level 4.3 g/dl (3.5-5.0); Albumin/Globulin Ratio 1.7 (1.1-1.8); Globulin 2.5 g/dL (1.3-3.2); Total Protein,Serum 6.8 g/dl (6.3-8.2)
== END ==
PROVIDERS: Visit Provider Physician Assistant
DX: R10.30 Lower abdominal pain, unspecified (principal); R30.0 Dysuria
CPT/HCPCS: 36415; 80053; 82150; 83690; 85025; 87086

== ENCOUNTER → 2020-08-08 08:57 | Outpatient (POV) | payer MEDICARE, MEDICAID, SELFPAY ==
[2020-08-08 09:10] VITALS: BP 132/88; PULSE 74; RESP 18; TEMP 36.8; O2SAT 98; BMI 29.2
--- NOTE | 2020-08-08 09:15 | HMH.PAINSOAP ---
[facility] Pain Management SOAP Note Subjective:: Patient is a pleasant 65-year-old white female who presents today for follow-up. Patient had a psychological evaluation for intrathecal therapy. She was deemed an appropriate candidate however she is on Xanax. After speaking with her psychiatrist she has a weaning schedule. The psychiatrist would like to keep her Ativan half a tab 3 times a day of 0.5 mg of Xanax. I believe that this is appropriate. Patient is weaning down from 3 mg a day. Her ultimate dose will be 0.75 mg a day of Xanax. She rates her pain a 9 out of 10 mostly in her low back and bilateral legs she is failed conservative therapy including injection therapy, physical therapy, medications, anti-inflammatories. She is not on any anticoagulation therapy. ROS General: no recent weight change, no fever, no sleep disturbances Respiratory: no cough, no shortness of air, no recurring pulmonary infections Cardiovascular/Peripheral Vascular: No chest pain, No palpitations, no edema, no shortness of breath. Gastrointestinal: no new onset incontinence, normal bowel movements reported Genitourinary: no new onset incontinence Musculoskeletal: Back pain, leg pain Psychiatric: normal mood/ affect Neurological: [denies new onset weakness in extremities], [denies new onset balance issues] Objective:: Physical Exam General: Alert and oriented x3, no acute distress, pleasant and cooperative, [on room air] Lungs: Resps E/U, Symmetrical chest expansion, Eyes: PERRL Musculoskeletal: Flexion and extension of lumbar spine somewhat guarded secondary to pain, deep tendon reflexes normal, strength in upper and lower extremities [5/5], [abnormal gait noted] Neurological: speech clear, design maker equal, no gross sensory deficits Assessment:: Degenerative disc disease lumbar spine lumbar radiculopathy Plan:: We will schedule the patient for intrathecal pain pump trial. Patient has been weaning her Xanax and doing well with this. I discussed with the patient realistic expectations along with the trial process and implantation process. I answered all of her questions. I will follow-up with her after her pump trial reassess her symptoms at that time. Dr. Sue has reviewed this note and agrees with this plan of care. This note was dictated using voice recognition software and may contain errors or omissions [facility] History I have reviewed the patient's past medical history: Yes Medical History: Reports:: Anxiety, Arrhythmia, Cancer (stomach), Carotid Stenosis, Hyperlipidemia, Hypertension, Osteoporosis Denies:: Diabetes Mellitus Type 1, Diabetes Mellitus Type 2, MRSA, Seizures *Have you ever received a pneumonia vaccine?: Yes *Have you received a flu vaccine this season?: Yes Other Medical History: Reports: Anemia, Arthritis, Chemotherapy, Osteoporosis, Radiation Therapy. Denies: Blood Transfusion Reaction Other Surgeries: Yes: BSO, Cholecystectomy, Dilation and Curettage, Hysterectomy-Partial, Other Amputation: No Fractures: No - *Social History Smoking Status: Current every day smoker Tobacco Type: cigarettes # Packs/Day (cigarettes): 1 Alcohol Intake: never *Occupational Status:: other Housing: house Household Members: family *Travel in the last 8 weeks: None - Psychiatric History Pschychiatric History:: Reports:: Anxiety Family Hx:: Unable to obtain
== END ==
PROVIDERS: Visit Provider Clinical Nurse Specialist Family Health
DX: M51.16 Intervertebral disc disorders with radiculopathy, lumbar region (principal)
CPT/HCPCS: 99212

== ENCOUNTER → 2020-08-08 09:27 | Outpatient (CLI) | payer MEDICARE, MEDICAID, SELFPAY ==
--- NOTE | 2020-08-08 09:32 | MM_ITS ---
PROCEDURE: MM DIG SCREENING MAMM BI W/CAD Referring Doctor: Sue Mckeon Patient Age:65Y CLINICAL INDICATION: SCREENING a 65-year-old. No hormones. No new complaints. Patient does have non-Hodgkin's lymphoma Family history: Paternal aunt with breast cancer COMPARISON: [facility] DIG MAMM-SCREEN CHASE from 01/29/2015 [facility] DIG MAMM-SCREEN CHASE from 03/12/2016 [facility] DIG MAMM-SCREEN CHASE W/CAD from 04/15/2017 MG [facility]BI MM Dig screening mamm BI w/CAD from 04/22/2018 MG MM DIG SCREENING MAMM BI W/CAD from 08/09/2019 TECHNIQUE: Standard CC and MLO images were obtained. R2 CAD reviewed. Bilateral digital breast tomosynthesis included. FINDINGS: Areas of moderately dense heterogeneous breast tissue/fibroglandular elements seen throughout the central and superior breast. CAD highlights no areas of significant concern. Overall breast appear stable bilaterally with no new dominant nor suspicious mass identified. Only note scattered benign singular dense calcifications bilaterally IMPRESSION: Stable bilateral mammogram with no new areas of concern. Moderately dense breast. Bilateral follow-up 1 year recommended BI-RAD Category: 1 Negative FOLLOW-UP: 1YR 1 Year Follow-up (A letter has been sent to the patient regarding results of the study.) Dictated by: Gage Currie MD 08/09/2020 09:41 Gage Currie MD in [place] 08/09/2020 09:41
--- NOTE | 2020-08-08 09:33 | XR_ITS ---
PROCEDURE: XR DEXA AXIAL SKELETON CLINICAL HISTORY: POST MENOPAUSAL history of rheumatoid arthritis, smoking history, patient currently is on Reclast COMPARISON: BRIAN,MARIANNE DEXAAX XR DEXA axial skeleton from 04/22/2018 FINDINGS: The total right hip BMD is 0.797 g per sq cm with a T-score of -1.2. The right femoral neck is 0.563 g per sq cm and T-score is -2.6. The total left hip BMD is 0.688 g per sq cm with a T-score of -2.1. The left femoral neck is 0.573 g per sq cm and the T-score is -2.5.. The lumbar spine BMD is 0.871 g per sq cm with a T-score of -1.6. IMPRESSION: There has been little no interval change in the T-score values from the previous exam both hips in the osteoporotic range, lumbar spine However lumbar spine values are likely skewed due to the rather severe levo scoliotic curvature and multilevel degenerate changes. Based on these results a follow-up exam is recommended in 1-2 years Dictated by: Dr. Polo Diaz MD 08/09/2020 11:05 Dr. Polo Diaz MD in [place] 08/09/2020 11:05
== END ==
PROVIDERS: Visit Provider Internal Medicine Hematology & Oncology
DX: Z12.31 Encounter for screening mammogram for malignant neoplasm of breast (principal); Z78.0 Asymptomatic menopausal state
CPT/HCPCS: 77063; 77067; 77080; 99212

== ENCOUNTER 2020-08-16 09:03 | Day surgery (SDC) | payer MEDICARE, MEDICAID, SELFPAY ==
[2020-08-16] VITALS (8 sets, daily range): BP systolic 111–136; BP diastolic 51–78; PULSE 76–95; RESP 18–20; TEMP 36.6; O2SAT 97–98; BMI 30.2
--- NOTE | 2020-08-16 09:56 | HMH.PMPROC ---
- Procedure Date: 08/16/20 Time: 09:56 Anesthesiologist:: Todd Sue MD Complications:: None Pre-procedure Diagnosis:: Degenerative disc disease of lumbar spine with lumbar radiculopathy symptoms and scoliosis with significant neuroforaminal narrowing Post-procedure Diagnosis:: Same Indications for Procedure:: Patient is a pleasant 65-year-old white female who we have been treating for low back pain with lumbar radiculopathy symptoms. She does have significant degenerative changes with neuroforaminal narrowing and scoliosis. She has failed all previous conservative treatments including injections, physical therapy, oral medications. She is weaning down on her Xanax. She is had a successful psychological evaluation. She presents for intrathecal pump trial today. Procedure Details:: Pain pump trial Pain pump trial Informed consent was obtained and the risk and benefits of the procedure was explained to the patient. The patient was taken to the procedure room and placed prone on the procedure table. Patient was prepped and draped in sterile fashion. C-arm fluoroscopy was used to view the lumbar spine. The skin and subcutaneous tissues were anesthetized using lidocaine. I placed a 18-gauge spinal needle into the L4-5 interspace and advanced until clear CSF was obtained. After this intrathecal catheter was inserted and advanced very easily to the L1 vertebral body. The needle was withdrawn. We were able to freely withdraw clear CSF through the catheter. We then injected intrathecal fentanyl single shot bolus of 25 mcg followed by saline and followed by the previous CSF that was withdrawn. The needle and catheter were then removed and a Band-Aid was placed. Patient tolerated the procedure well with no complications. We reevaluated the patient after 30 minutes to 1 hour. She was also reassessed by physical therapy. Patient had 80 to 90% relief in her pain symptoms. She was much more functional. We will plan on permanent placement of intrathecal pain pump. She had no side effects. Plan and disposition: We will follow-up with her and 2 weeks. We will confirm that she is completely off of her Xanax and has clearance for the surgery. We will plan on permanent placement of intrathecal pain pump with intrathecal morphine 5 mg per mall to start at 0.25 mg/day. We will also have her see Dr. Henry for evaluation permanent placement of intrathecal pain pump battery. Plan and Disposition:: Plan and disposition: We will follow-up with her and 2 weeks. We will confirm that she is completely off of her Xanax and has clearance for the surgery. We will plan on permanent placement of intrathecal pain pump with intrathecal morphine 5 mg per mall to start at 0.25 mg/day. We will also have her follow-up with Dr. Henry for evaluation of permanent placement of intrathecal pain pump battery
--- NOTE | 2020-08-16 11:05 | PC.NURSE ---
Physical therapist at bedside.
--- NOTE | 2020-08-16 11:06 | PC.NURSE ---
1000-pt c/o itching. medicated with benadryl per prn order.
--- NOTE | 2020-08-16 12:10 | PC.NURSE ---
1000-pt assisted back to bay, via w/c. pt denies pain but does c/o itching. VSS, afebirls 1005-pt provided breakfast tray. no other needs or concerns at this time 1015-pt sitting up in chair, eating breakfast. no c/o pain. VSS 1030-pt dozing intermittently in chair. VSS. no signs of pain verbalizd or observed 1045-pt sitting in chair, watching tv. tolerated breakfast with no complaints. VSS. no needs or concerns verbalized at this time 1100-pt assisted to bathroom. ambulated with use of a quad can. gait unsteady at times. c/o low back and bilateral hip pain. rates 3 on scale of 0-10. 1140-MD at bedside.
== END 2020-08-16 11:00 | disposition home or self-care (01) ==
LOC: SC.PAINP 09:04
PROVIDERS: PCP Physician Assistant; Visit Provider Anesthesiology
DX: M51.16 Intervertebral disc disorders with radiculopathy, lumbar region (principal); M41.9 Scoliosis, unspecified; I10 Essential (primary) hypertension; K21.9 Gastro-esophageal reflux disease without esophagitis; F41.9 Anxiety disorder, unspecified; E78.5 Hyperlipidemia, unspecified; F31.9 Bipolar disorder, unspecified; Z88.6 Allergy status to analgesic agent; Z72.0 Tobacco use
CPT/HCPCS: 62323; 96365

== ENCOUNTER → 2020-08-30 14:12 | Outpatient (CLI) | payer MEDICARE, MEDICAID, SELFPAY ==
[2020-08-30 15:29] LABS: Coronavirus 19 IgG Antibody Negative (Negative); Coronavirus 19 IgM Antibody Negative (Negative)
== END ==
PROVIDERS: PCP Physician Assistant; Visit Provider Urology
DX: N30.90 Cystitis, unspecified without hematuria (principal); R31.9 Hematuria, unspecified
CPT/HCPCS: 36415; 86328

== ENCOUNTER 2020-09-02 07:37 | Day surgery (SDC) | payer MEDICARE, MEDICAID, SELFPAY ==
[2020-08-27 09:21] VITALS: BMI 30.2
[2020-09-02 08:09] VITALS: BP 124/86; PULSE 70; RESP 18; TEMP 36.4; O2SAT 98
--- NOTE | 2020-09-02 08:21 | HMH.ANESCL ---
[facility] Anesthesia Checklist - Patient Identification Patient Identification: Arm Band, Verbal (Name & ) - Structural Data Admitted From: Home Planned Operative Procedure/s: cysto Consent for Planned Operative Procedure(s) Verified: Yes Verified Documents: History and Physical - NPO Status Verified Time NPO: 00:00 - Additional verifications Patient : No Anesthesia Reactions: No Hx Blood Transfusions: No Blood Transfusion Reaction: No Cephalosporin Allergy: No Previous Colonoscopy: Yes - Cardiovascular Assessment Heart Sounds: S1 & S2 Pulse Strength: Baseline Pulse Rhythm: Regular Peripheral Edema: No - Airway Assessment C-Spine Mobility Assessed: Yes TMJ Mobility Assessed: Yes Dentition: Edentulous - Neurological Assessment Level of Consciousness: Awake, Alert, Appropriate Hx Seizures: No Numbness or tingling in extremities: No - Anesthesia Plan Anesthesia Risk discussed: Yes Anesthesia Plan: Verified ASA Class: III Anesthesia Type: MAC [facility] History I have reviewed the patient's past medical history: Yes Medical History: Reports:: Anxiety, Arrhythmia, Cancer (nonhodgkins lymphoma), Carotid Stenosis, Gall Bladder Disease, Hyperlipidemia, Hypertension, Osteoporosis Denies:: Diabetes Mellitus Type 1, Diabetes Mellitus Type 2, Internal Pacemaker, MRSA, Seizures *Have you ever received a pneumonia vaccine?: Yes *Have you received a flu vaccine this season?: Yes Other Medical History: Reports: Anemia, Arthritis, Chemotherapy, Fibromyalgia, Osteoporosis, Radiation Therapy. Denies: Blood Transfusion Reaction Anesthesia experience/problems:: none Laterality Cases: Bilateral: Cataract Other Surgeries: Yes: BSO, Cholecystectomy, Dilation and Curettage, Hysterectomy-Partial, Other (scoliosis surgery). No: Pacemaker Amputation: No Fractures: No - *Social History Last grade of school completed: High school graduate Smoking Status: Current every day smoker Tobacco Type: cigarettes # Packs/Day (cigarettes): 1 Alcohol Intake: never Substance Use Type: denies use *Occupational Status:: disabled Housing: apartment Household Members: none *Travel in the last 8 weeks: None - Psychiatric History Pschychiatric History:: Reports:: Anxiety Family Hx:: Cancer, Coronary Artery Disease
[2020-09-02 10:21] VITALS: BP 100/67; PULSE 75; RESP 16; TEMP 36.5; O2SAT 92
[2020-09-02 10:36] VITALS: BP 111/71; PULSE 70; RESP 16; TEMP 36.5; O2SAT 92
[2020-09-02 10:51] VITALS: BP 143/93; PULSE 76; RESP 16; TEMP 36.5; O2SAT 93
[2020-09-02 11:06] VITALS: BP 154/83; PULSE 75; RESP 16; TEMP 36.5; O2SAT 94
[2020-09-02 11:45] VITALS: BP 175/88; PULSE 70; RESP 18; TEMP 36.5; O2SAT 94
--- NOTE | 2020-09-02 17:05 | HMH.OPNOTE ---
Date of procedure: 09/02/20 Pre-op Diagnosis:: Gross hematuria Post-op Diagnosis:: Same Procedure performed:: Cystoscopy with right ureteroscopy and dilation of ureteral stenosis Surgeon:: Naresh Donovan MD SHOT BLASTER:: Nabeel Ricks Anesthesia: MAC Estimated blood loss (mL): 0 Clinical Note:: 65-year-old white female with some persistent occasional gross hematuria presents for cystoscopic evaluation. Previous CT scan is shown couple of stable left-sided kidney stones. Operative findings:: Patient's bladder was normal. She had 2 ureteral orifices on the right side consistent with a completely duplicated right collecting system. There was only 1 ureter on the left side. Operative note:: Patient was taken to the operating room after informed consent was obtained. He was placed on the operating table in the supine position and general anesthesia administered. Preoperative antibiotics were administered. She was then placed into the dorsolithotomy position and prepped and draped in the standard surgical fashion. 22 Luis passed into the urethra and into the bladder without difficulty. The bladder was examined in a systematic fashion. There is no evidence of mucosal abnormalities, stones, trabeculation or cellule formation. There were 2 ureteral orifices on the patient's right side and only one on the left side. There is no evidence of any blood per the ureteral orifices but the more inferior right ureteral orifice was not making any urine. A 5 Polish ureteral catheter was passed into both of the right ureteral orifices and there is no evidence of resistance to passage of the catheter upwards. The catheter was also passed into the left ureteral orifice and there was no evidence of resistance or bladder after removing the catheter. After removing the ureteral catheter from the right side there was no blood noted from the more lateral orifice but a tiny bit of blood noted from the more medial orifice. This orifice was still not noted to be making any urine. I decided to investigate the more medial orifice and a guidewire was passed into the orifice and a flexible ureteroscope was passed over the guidewire. There was stenotic segment of ureter about 3 cm proximally and the ureteroscope could not pass it. The ureteroscope then removed and the 4 x 15 mm balloon dilator passed over the guidewire and the ureter dilated in 3 segments. The balloon then deflated and removed and the flexible ureteroscope was passed back into the ureter. We were able to pass more proximally but the ureter still gave a lot of resistance to passage of the scope and was felt to be pretty stenotic throughout its whole length. There is no evidence of any abnormalities in the distal to mid ureter. Ureteroscope removed and a guidewire removed. The cystoscope was replaced and there was a little bit of trauma right above the entry to the right ureteral orifice and the Bugbee was used to cauterize this. The bladder then emptied and the scope removed. Urojet placed into the urethra and the patient transferred to recovery in stable condition. Condition: stable Disposition: same day Specimens:: None Complications:: None
== END 2020-09-02 11:55 | disposition home or self-care (01) ==
LOC: OR 07:39
PROVIDERS: PCP Physician Assistant; Visit Provider Urology
PROC: (CPT 52281; principal; 2020-09-02 09:00)
DX: N35.82 Other urethral stricture, female (principal); Q64.74 Double urethra; F41.9 Anxiety disorder, unspecified; I49.9 Cardiac arrhythmia, unspecified; Z85.72 Personal history of non-Hodgkin lymphomas; E78.5 Hyperlipidemia, unspecified; I10 Essential (primary) hypertension; M81.0 Age-related osteoporosis without current pathological fracture; D64.9 Anemia, unspecified; M19.90 Unspecified osteoarthritis, unspecified site; I65.29 Occlusion and stenosis of unspecified carotid artery; M79.7 Fibromyalgia
CPT/HCPCS: 52281; 96374

== ENCOUNTER → 2020-09-12 10:40 | Outpatient (POV) | payer MEDICARE, MEDICAID, SELFPAY ==
[2020-09-12 11:11] VITALS: BP 132/72; PULSE 74; RESP 18; TEMP 36.6; O2SAT 98; BMI 31.3
--- NOTE | 2020-09-19 17:31 | HMH.PAINSOAP ---
[facility] Pain Management SOAP Note Subjective:: Patient is a pleasant 65-year-old white female who we are following up with after intrathecal pain pump trial. Patient got 90% relief of her symptomology during her trial. Patient is coming down on her Xanax. After discussion with Dr. Jonas and Dr. Castro her psychologist it has been determined to leave her at a low dose of 0.25 mg p.o. twice daily. She is continuing to wean. Patient will be closely monitored by both our clinic and her psychologist in regards to side effects with the intrathecal morphine. Patient per Dr. Villegas note will be started on morphine 5 mg/mL at 0.25 mg/day. Patient's failed other conservative measures including anti-inflammatories, medications, injection therapy. ROS General: no recent weight change, no fever, no sleep disturbances Respiratory: no cough, no shortness of air, no recurring pulmonary infections Cardiovascular/Peripheral Vascular: No chest pain, No palpitations, no edema, no shortness of breath. Gastrointestinal: no new onset incontinence, normal bowel movements reported Genitourinary: no new onset incontinence Musculoskeletal: Back pain, leg pain, neck pain Psychiatric: normal mood/ affect, Neurological: [denies new onset weakness in extremities], [denies new onset balance issues] Objective:: Physical Exam General: Alert and oriented x3, no acute distress, pleasant and cooperative, [on room air] Lungs: Resps E/U, Symmetrical chest expansion, Eyes: PERRL Musculoskeletal: Flexion and extension of lumbar spine somewhat guarded secondary to pain, deep tendon reflexes normal, strength in upper and lower extremities [5/5], [abnormal gait noted] Neurological: speech clear, 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 Sevilla more we will move forward with her implant. Patient's been instructed to call the office if she has any issues prior to next appointment. Dr. Sue has reviewed this note and agrees with this plan of care. This note was dictated using voice recognition software and may contain errors or omissions [facility] History I have reviewed the patient's past medical history: Yes Medical History: Reports:: Anxiety, Arrhythmia, Cancer (nonhodgkins lymphoma), Carotid Stenosis, Gall Bladder Disease, Hyperlipidemia, Hypertension, Osteoporosis Denies:: Diabetes Mellitus Type 1, Diabetes Mellitus Type 2, Internal Pacemaker, MRSA, Seizures *Have you ever received a pneumonia vaccine?: Yes *Have you received a flu vaccine this season?: Yes Other Medical History: Reports: Anemia, Arthritis, Chemotherapy, Fibromyalgia, Osteoporosis, Radiation Therapy. Denies: Blood Transfusion Reaction Other Surgeries: Yes: BSO, Cholecystectomy, Dilation and Curettage, Hysterectomy-Partial, Other (scoliosis surgery). No: Pacemaker Amputation: No Fractures: No - *Social History Smoking Status: Current every day smoker Tobacco Type: cigarettes # Packs/Day (cigarettes): 1 Alcohol Intake: never Substance Use Type: denies use *Occupational Status:: disabled Housing: apartment Household Members: none *Travel in the last 8 weeks: None - Psychiatric History Pschychiatric History:: Reports:: Anxiety Family Hx:: Cancer, Coronary Artery Disease
== END ==
PROVIDERS: PCP Physician Assistant; Visit Provider Clinical Nurse Specialist Family Health
DX: M51.16 Intervertebral disc disorders with radiculopathy, lumbar region (principal)
CPT/HCPCS: 99212; G0463

== ENCOUNTER → 2020-09-18 09:08 | Outpatient (POV) | payer MEDICARE, MEDICAID, SELFPAY ==
[2020-09-18 09:29] VITALS: PULSE 73; RESP 20; TEMP 36.7; O2SAT 94; BMI 31.3
--- NOTE | 2020-09-18 11:38 | HMH.PMCON ---
Assessment and Plan - Assessment and plan all Dx Assessment and Plan for all problems:: Impression-degenerative disc disease of the lumbar spine with radiculopathy Plan-placement of intrathecal pain pump system in the near future HPI - Data of Consult Patient: new to practice Consult date: 09/18/20 Requesting Physician: Abhishek Henry MD Primary Care Provider: GILBERT Romo - Consult Narrative Reason for consult: Chronic back pain History of present illness: Ms. Arredondo is a 65 year old female with degenerative disc disease of the lumbar spine referred for placement of a pain pump system. Patient has chronic back pain and has not had back surgery. Multiple attempts at pain relief unsuccessful. Patient had a pain pump trial with significant improvement in activities and in pain and is referred for now for placement of that system CC: Abhishek Henry MD [facility] History Medical History: Reports:: Anxiety, Arrhythmia, Cancer (nonhodgkins lymphoma), Carotid Stenosis, Gall Bladder Disease, Hyperlipidemia, Hypertension, Osteoporosis Denies:: Diabetes Mellitus Type 1, Diabetes Mellitus Type 2, Internal Pacemaker, MRSA, Seizures *Have you ever received a pneumonia vaccine?: Yes *Have you received a flu vaccine this season?: Yes Other Medical History: Reports: Anemia, Arthritis, Chemotherapy, Fibromyalgia, Osteoporosis, Radiation Therapy. Denies: Blood Transfusion Reaction Comment:: Illnesses-hypertension, hyperlipidemia, cigarette abuse, GERD, bipolar disorder, anxiety and depression, chronic back pain, scoliosis, history of non-Hodgkin's lymphoma Other Surgeries: Yes: BSO, Cholecystectomy, Dilation and Curettage, Hysterectomy-Partial, Other (scoliosis surgery). No: Pacemaker Amputation: No Fractures: No Comment: Operations bilateral salpingo-oophorectomy, hysterectomy, cholecystectomy - *Social History Smoking Status: Current every day smoker Tobacco Type: cigarettes # Packs/Day (cigarettes): 1 Alcohol Intake: never Substance Use Type: denies use *Occupational Status:: disabled Housing: apartment Household Members: none *Travel in the last 8 weeks: None - Psychiatric History Pschychiatric History:: Reports:: Anxiety Family Hx:: Cancer, Coronary Artery Disease Review of Systems - Review of Systems Review of systems:: pertinent systems reviewed and negative unless documented below Meds Home Medications Medication Instructions Recorded Confirmed Type alprazolam 0.5 mg tablet 0.25 mg PO DAILY 08/09/19 09/18/20 History aspirin 81 mg tablet,delayed 81 mg PO DAILY 08/09/19 09/18/20 History release baclofen 10 mg tablet 10 mg PO DAILY 08/09/19 09/18/20 History dicyclomine 20 mg tablet 20 mg PO BID 08/09/19 09/18/20 History escitalopram oxalate 10 mg tablet 10 mg PO DAILY 08/09/19 09/18/20 History escitalopram oxalate 20 mg tablet 10 mg PO DAILY 08/09/19 09/18/20 History esomeprazole magnesium 40 mg 40 mg PO DAILY 08/09/19 09/18/20 History capsule,delayed release lamotrigine 200 mg tablet 200 mg PO DAILY 08/09/19 09/18/20 History ondansetron HCl 8 mg tablet 8 mg PO BID PRN 08/09/19 09/18/20 History pentosan polysulfate sodium 100 mg 100 mg PO TID 08/09/19 09/18/20 History capsule propranolol 60 mg tablet 60 mg PO BID 08/09/19 09/18/20 History tolterodine 2 mg tablet 2 mg PO BID 08/09/19 09/18/20 History topiramate 100 mg tablet 100 mg PO BID 08/09/19 09/18/20 History hydrocortisone 2.5 % topical cream 1 applic [place] QD-BID PRN #30 g 10/18/19 09/18/20 Rx with perineal applicator Diclofenac Sodium [Diclofenac Sod 100 gm TP TID PRN 08/27/20 09/18/20 History 100gm Topical Gel] Hydrocodone/Acetaminophen [[place] 1 each PO Q4-6H PRN #10 tab 09/02/20 09/18/20 Rx 5-325 Tablet] Allergies Allergy/AdvReac Type Severity Reaction Status Date / Time codeine [CODEINE] Allergy Mild Verified 09/18/20 09:29 Objective Vital signs: Temp Pulse Resp Pulse Ox 98.1 F 73 20 94 L 09/18/20
== END ==
PROVIDERS: PCP Physician Assistant; Visit Provider Surgery
DX: M51.16 Intervertebral disc disorders with radiculopathy, lumbar region (principal)
CPT/HCPCS: 99212; G0463

== ENCOUNTER 2020-09-27 10:57 | Day surgery (SDC) | payer MEDICARE, MEDICAID, SELFPAY ==
[2020-09-27 11:53] VITALS: BP 133/83; PULSE 97; RESP 18; TEMP 36.7; O2SAT 98; BMI 30.2
[2020-09-27 12:46] VITALS: BP 140/78; PULSE 85; RESP 18
[2020-09-27 12:47] VITALS: BP 140/79; PULSE 85; RESP 18; O2SAT 98
--- NOTE | 2020-09-27 12:47 | HMH.PMPROC ---
- Procedure Date: 09/27/20 Time: 12:47 Anesthesiologist:: Todd Sue MD Complications:: None Pre-procedure Diagnosis:: Sacroiliitis Post-procedure Diagnosis:: Same Indications for Procedure:: Patient is a pleasant 65-year-old white female who we are planning to implant an intrathecal pain pump in next month has some increasing pain over both hips. She presents today with tenderness over both SI joints. She has a positive Anderson's test bilaterally. She is positive SI joint compression test bilaterally. She has a positive Clementina test bilaterally. We will do bilateral SI joint injections today to help with her pain symptoms. Procedure Details:: B/L SI joint injection under fluoroscopy Informed consent was obtained and the risks and benefits of the procedure was explained to the patient. The patient was taken to the procedure room and placed prone on the procedure table. The patient was prepped using ChloraPrep. The skin and subcutaneous tissues overlying the SI joints were anesthetized using lidocaine. I placed a 22-gauge needle first in the left SI joint and second in the right SI joint. Needle placement was confirmed with dye. After this we injected 5 mL bupivacaine 0.25% and Depo-Medrol 40 mg into each SI joint. Patient tolerated the procedure well with no complication. Plan and Disposition:: We will follow-up with her in 2 weeks. Will reevaluate symptoms at that time. She is again weaning off of her Xanax in preparation for intrathecal morphine pain pump.
[2020-09-27 13:29] VITALS: BP 153/84; PULSE 97; RESP 18; TEMP 36.6; O2SAT 98
== END 2020-09-27 13:00 | disposition home or self-care (01) ==
LOC: SC.PAINP 10:58
PROVIDERS: PCP Physician Assistant; Visit Provider Anesthesiology
DX: M46.1 Sacroiliitis, not elsewhere classified (principal); I10 Essential (primary) hypertension; F41.9 Anxiety disorder, unspecified; F32.9 Major depressive disorder, single episode, unspecified; Z88.6 Allergy status to analgesic agent
CPT/HCPCS: 27096; G0260; J1030; Q9966

== ENCOUNTER → 2020-11-04 11:03 | Outpatient (POV) | payer MEDICARE, MEDICAID, SELFPAY | PROVIDERS: Visit Provider Nurse Practitioner Family | DX: Z00.00 Encounter for general adult medical examination without abnormal findings (principal) ==

== ENCOUNTER 2020-12-02 11:57 | Day surgery (SDC) | payer MEDICARE, MEDICAID, SELFPAY ==
[2020-11-26 13:44] VITALS: BMI 27.2
--- NOTE | 2020-11-26 14:15 | SUR.PREOP ---
PT UNABLE TO REMEMBER NAME OF MEDICATIONS, INSTRUCTED HER TO BRING A LIST WITH HER ON DOS. PT VERBALIZED DIDN'T KNOW IF COULD FIND SOMEONE TO BRING HER ON 11-30-20 TO GET COVID TEST SO INSTRUCTED PT TO COME IN 30MINUTES EARLY TO PROCEDURE, DOS- 1200 TO HAVE IT DONE. INFORMED PT THAT IF TEST CAME BACK POSITIVE THAT THE PROCEDURE COULD BE CANCELLED. PT VERBALIZED UNDERSTANDING.
[2020-12-02 12:53] VITALS: BP 139/70; PULSE 63; RESP 20; TEMP 36.6; O2SAT 99
[2020-12-02 13:38] LABS: Coronavirus 19 IgG Antibody Negative (Negative); Coronavirus 19 IgM Antibody Negative (Negative)
--- NOTE | 2020-12-02 13:58 | HMH.PROC ---
[facility] Procedure Note Procedure Note:: Upper Endoscopy Procedure Report: Esophagogastroduodenoscopy with cold biopsies Endoscopost: Bryn Sandoval II, MD Referring Physician: ANIYAH Meyer/Cyril Lemus MD/Elizabeth Woodward Date of Procedure: December 02, 2020 Equipment: Olympus GIF 190 standard upper endoscope Sedation: MAC sedation Indications: Mrs. Arredondo is a 65-year-old female with chronic diarrhea and irritable bowel syndrome. She has had significant bloating. She has some heartburn and reflux that occurs up to 3 times a week. She reports no dysphagia. Her CAT scan showed a moderate sized hiatal hernia. This also showed obstipation with retained colonic feces. The patient does have a history of non-Hodgkin's lymphoma. She also has a history of a gastric non-Hodgkin's lymphoma (MALT lymphoma). The patient did have a PET scan 6 months ago that did not show any progression of her MALT lymphoma. Procedure: Prior to the procedure, a history and physical exam was performed, and patient's medications and allergies were reviewed. The risks, benefits and alternatives of the sedation and procedure were discussed with the patient. All questions were answered and informed consent was obtained. The patient was brought to the procedure room. Patient identification and proposed procedure were verified by the physician and the nurse. The patient was placed in a left lateral decubitus position and the scope was passed under direct vision. Throughout the procedure, the patient's blood pressure, pulse, and oxygen saturations were monitored continuously. The upper GI endoscopy was accomplished without difficulty. The patient tolerated the procedure well. Findings: The scope was passed directly into the upper esophagus and advanced to the third portion of the duodenum. The post bulbar duodenum and duodenal bulb were normal with normal mucosa and conniventes. The scope was withdrawn through a normal duodenal bulb and pylorus into the stomach. There was bile reflux with moderate linear reactive gastropathy of the antrum and body of the stomach. There was also some chronic gastritis of the body and fundus. Upon retroflexion there was a 3 to 4 cm hiatal hernia. There were no Gerry's erosions. Cold biopsies were taken along the lesser curvature. The scope was then withdrawn into the esophagus. There was no evidence of reflux esophagitis or Blanchard's. Biopsies were taken at the GE junction. There were tertiary contractions and evidence of moderate esophageal dysmotility. The remainder of the esophageal mucosa was normal. Impression: 1. Nonerosive GERD with moderate esophageal dysmotility and 3 to 4 cm (medium sized) hiatal hernia. 2. Bile reflux with moderate linear reactive gastropathy and mild chronic gastritis Plan: I will follow-up the biopsies. I will proceed with diagnostic colonoscopy.
--- NOTE | 2020-12-02 14:10 | P.PN_ITS ---
[facility] Anesthesia Checklist - Patient Identification Patient Identification: Arm Band - Structural Data Admitted From: Home Planned Operative Procedure/s: egd/colonoscopy Consent for Planned Operative Procedure(s) Verified: Yes Verified Documents: Surgical Consent, History and Physical - NPO Status Verified Time NPO: 00:00 - Additional verifications Anesthesia Reactions: No Hx Blood Transfusions: No Blood Transfusion Reaction: No - Airway Assessment C-Spine Mobility Assessed: Yes (mp2) TMJ Mobility Assessed: Yes Dentition: Edentulous - Neurological Assessment Level of Consciousness: Awake, Alert - Anesthesia Plan Anesthesia Risk discussed: Yes Anesthesia Plan: Verified ASA Class: III Anesthesia Type: MAC [facility] History I have reviewed the patient's past medical history: Yes Medical History: Reports:: Anxiety, Arrhythmia, Cancer, Carotid Stenosis, Gall Bladder Disease, Hyperlipidemia, Hypertension, Osteoporosis Denies:: Diabetes Mellitus Type 1, Diabetes Mellitus Type 2, Internal Pacemaker, MRSA, Seizures *Have you ever received a pneumonia vaccine?: No *Have you received a flu vaccine this season?: Yes Other Medical History: Reports: Anemia, Arthritis, Chemotherapy, Fibromyalgia, Osteoporosis, Radiation Therapy. Denies: Blood Transfusion Reaction Anesthesia experience/problems:: nac Laterality Cases: Bilateral: Cataract Other Surgeries: Yes: BSO, Cardiac Catheterization, Cholecystectomy, Colonoscopy, Dilation and Curettage, Hysterectomy-Total, Hysterectomy-Partial, Other (scoliosis surgery). No: Pacemaker Amputation: No Fractures: No - *Social History Last grade of school completed: High school graduate Smoking Status: Current every day smoker Tobacco Type: cigarettes # Packs/Day (cigarettes): 1 Alcohol Intake: never Substance Use Type: denies use *Occupational Status:: disabled Housing: house Household Members: none *Travel in the last 8 weeks: None - Psychiatric History Pschychiatric History:: Reports:: Anxiety Family Hx:: Cancer, Coronary Artery Disease
--- NOTE | 2020-12-02 14:31 | P.PCN_ITS ---
[facility] Procedure Note Procedure Note:: Colonoscopy Procedure Report: Colonoscopy with cold snare polypectomy and cold biopsies Endoscopist: Bryn Sandoval II, MD Referring physician: Ashlie Woodward PA-C/ANIYAH Meyer/Cyril Lemus MD Date of Procedure: December 02, 2020 Equipment: Olympus 190 variable stiffness pediatric colonoscope Sedation: MAC sedation Indication: Mrs. Arredondo is a 65-year-old female with a history of a gastric MALT lymphoma (non-Hodgkin's lymphoma). The patient also has had chronic diarrhea. She does have a very strong family history of colon cancer and had 5 brothers and a mother with colon cancer. She had a colonoscopy last with Dr. Irma Yost in [place] in 2017 and had 2 polyps (tubular adenoma x1 and hyperplastic polyp x1) which were removed. The patient does report some internal and external hemorrhoids with some hemorrhoidal bleeding. She does have some chronic bloating and abdominal discomfort. She reports excessive wiping. Procedure: Prior to the procedure, a history and physical exam was performed, and patient's medications and allergies were reviewed. The risks, benefits and alternatives of the sedation and procedure were discussed with the patient. All questions were answered and informed consent was obtained. The patient was brought to the procedure room. Patient identification and proposed procedure were verified by the physician and the nurse. The patient was placed in a left lateral decubitus position and the scope was passed under direct vision. Throughout the pr ocedure, the patient's blood pressure, pulse, and oxygen saturations were monitored continuously. The colonoscopy was accomplished without difficulty. The patient tolerated the procedure well. Findings: On digital rectal examination there was normal rectal tone. There was hemorrhoidal prolapse. The colonoscope was introduced through the anal canal to the rectum and advanced to the cecum. The ileocecal valve and appendiceal orifice were identified. The scope was advanced a short distance into the ileum which appeared grossly normal. The scope was then withdrawn into the colon. There were a total of 17 colon polyps (ascending x5 (4, 4, 4, 5 and 7 mm), transverse x10 (3, 3, 3, 4, 4, 5, 5, 5, 6 and 7 mm) and ascending x2 (3 and 12 mm)) which were all removed via cold snare polypectomy. Random biopsies were taken from the right colon to rule out microscopic colitis. Upon retroflexion within the rectum there were grade 3 internal hemorrhoids.The preparation was fair throughout with Success Preparation Score of 6 out of 9. The cecal time was 21 minutes. Impression: 1. Colonic polyps x17 2. Grade 3 internal hemorrhoids with hemorrhoidal prolapse Plan: Based upon her family history and number of adenomatous colon polyps, I would recommend repeat surveillance colonoscopy in 1 year. I will follow up the biopsies to rule out microscopic colitis. If these are negative, I would consider increasing the colestipol to 2 g p.o. twice daily and adding bulk fiber.
[2020-12-02 14:33] VITALS: BP 111/62; PULSE 69; RESP 12; TEMP 36.6; O2SAT 98
[2020-12-02 14:43] VITALS: BP 119/70; PULSE 69; RESP 16; O2SAT 98
[2020-12-02 14:53] VITALS: BP 123/76; PULSE 70; RESP 16
[2020-12-02 15:03] VITALS: BP 141/83; PULSE 70; RESP 16; TEMP 36.6; O2SAT 98
== END 2020-12-02 15:03 | disposition home or self-care (01) ==
LOC: OUTP 12:34
PROVIDERS: PCP Physician Assistant; Visit Provider Internal Medicine Gastroenterology
PROC: 0DJ08ZZ Inspection of Upper Intestinal Tract, Via Natural or Artificial Opening Endoscopic (ICD-10-PCS; CPT 43235; principal; 2020-12-02 13:30)
DX: K63.5 Polyp of colon (principal); K64.2 Third degree hemorrhoids; K58.0 Irritable bowel syndrome with diarrhea; K21.9 Gastro-esophageal reflux disease without esophagitis; K22.4 Dyskinesia of esophagus; K44.9 Diaphragmatic hernia without obstruction or gangrene; K31.9 Disease of stomach and duodenum, unspecified; K29.50 Unspecified chronic gastritis without bleeding; Z85.72 Personal history of non-Hodgkin lymphomas; I25.10 Atherosclerotic heart disease of native coronary artery without angina pectoris; I10 Essential (primary) hypertension; E78.5 Hyperlipidemia, unspecified
CPT/HCPCS: 43239; 45385; 86328

== ENCOUNTER → 2020-12-17 11:25 | Outpatient (CLI) | payer MEDICARE, MEDICAID, SELFPAY ==
[2020-12-17 11:55] LABS: Basophils % 0.6 % (0.1-2.0); Eosinophils % 0.1 % (0.1-12.0); Hematocrit 37.8 % (37.0-47.0); Hemoglobin 12.6 g/dL (12.2-16.2); Lymphocytes # 1.9 K/mm3 (0.7-4.5); Lymphocytes % 32.1 % (10-50); Mean Corpuscular HGB Conc 33.3 g/dL (31.8-35.4); Mean Corpuscular Hemoglobin 31.1 pg (27.0-31.2); Mean Corpuscular Volume 93.4 fl (81-99); Mean Platelet Volume 8.3 fl (7.4-10.4); Monocytes # 0.4 K/mm3 (0.1-1.0); Monocytes % 6.1 % (1.7-9.3); Neutrophils # 3.6 K/mm3 (1.8-7.8); Platelet Count 194 K/mm3 (142-424); Red Blood Count 4.05 M/mm3 (4.20-5.40); Red Cell Distribution Width 14.9 % (11.5-17.5); White Blood Count 5.9 K/mm3 (4.8-10.8)
[2020-12-17 12:19] LABS: Amphetamine/Metha Screen,Urine Negative ng/ml (<1000)
[2020-12-17 12:21] LABS: Barbiturates Screen,Urine Negative ng/ml (<200); Benzodiazepines Screen,Urine Positive ng/ml (<200)
[2020-12-17 12:22] LABS: Cannabinoid Screen,Urine Negative ng/ml (<50); Cocaine Screen,Urine Negative ng/ml (<300)
[2020-12-17 12:23] LABS: Methadone Screen,Urine Negative ng/ml (<300)
[2020-12-17 12:24] LABS: Opiate Screen,Urine Negative ng/ml (<300); Phencyclidine Screen,Urine Negative ng/ml (<25)
[2020-12-17 13:03] LABS: Chloride 107 mmol/L (98-107); Potassium 4.1 mmoL/L (3.5-5.1); Sodium 140 mmol/L (136-145)
[2020-12-17 13:06] LABS: Anion Gap 14.1 mEq/L (5-15); Blood Urea Nitrogen 10 mg/dl (7-17); Calcium 9.7 mg/dl (8.4-10.2); Carbon Dioxide 23 mmol/L (22.0-30.0); Estimated Glomerular Filt Rate 50 ml/min (>60); GFR (African American) 60 ML/MIN (>60); Glucose 96 mg/dl (74-100)
[2020-12-17 13:41] LABS: Coronavirus 19 IgG Antibody Positive (Negative); Coronavirus 19 IgM Antibody Negative (Negative)
== END ==
PROVIDERS: Visit Provider Anesthesiology
DX: Z01.812 Encounter for preprocedural laboratory examination (principal); Z20.822 Contact with and (suspected) exposure to COVID-19; Z79.899 Other long term (current) drug therapy; M51.36 Other intervertebral disc degeneration, lumbar region
CPT/HCPCS: 36415; 80048; 80305; 85025; 86328

== ENCOUNTER 2020-12-18 07:22 | Day surgery (SDC) | payer MEDICARE, MEDICAID, SELFPAY ==
[2020-12-18 08:17] VITALS: BP 131/66; PULSE 77; RESP 18; TEMP 36.4; O2SAT 96; BMI 29.2
--- NOTE | 2020-12-18 09:58 | HMH.PMCON ---
Assessment and Plan - Assessment and plan all Dx Assessment and Plan for all problems:: Impression-degenerative disc disease of the lumbar spine with radiculopathy Plan-placement of intrathecal pain pump system today HPI - Data of Consult Patient: known to practice within the last 3 years Consult date: 12/18/20 Requesting Physician: Todd Sue MD Primary Care Provider: GILBERT Romo - Consult Narrative Reason for consult: Degenerative disc disease of the lumbar spine with radiculopathy History of present illness: Ms. Arrdeondo is a 65 year old female with chronic back pain who presents today for placement of intrathecal pain pump system. She had a pump trial with significant improvement and comes in today for placement of that system CC: Todd Sue MD Back pain [facility] History Medical History: Reports:: Anxiety, Arrhythmia, Cancer (NON HODGKINS LYMPHOMA), Carotid Stenosis, Gall Bladder Disease, Hyperlipidemia, Hypertension, Osteoporosis Denies:: Diabetes Mellitus Type 1, Diabetes Mellitus Type 2, Internal Pacemaker, MRSA, Seizures *Have you ever received a pneumonia vaccine?: Yes *Have you received a flu vaccine this season?: Yes Other Medical History: Reports: Anemia, Arthritis, Chemotherapy, Fibromyalgia, Osteoporosis, Radiation Therapy. Denies: Blood Transfusion Reaction Laterality Cases: Bilateral: Cataract Other Surgeries: Yes: No Previous Surgery, BSO, Cardiac Catheterization, Cholecystectomy, Colonoscopy, Dilation and Curettage, Hysterectomy-Total, Hysterectomy-Partial, Other (scoliosis surgery). No: Pacemaker Amputation: No Fractures: No - *Social History Last grade of school completed: High school graduate Smoking Status: Current every day smoker Tobacco Type: cigarettes # Packs/Day (cigarettes): 1 Alcohol Intake: never Substance Use Type: denies use *Occupational Status:: disabled Housing: apartment Household Members: none *Travel in the last 8 weeks: None - Psychiatric History Pschychiatric History:: Reports:: Anxiety Family Hx:: Cancer, Coronary Artery Disease, Diabetes, Heart Attack, Hypertension, Stroke Meds Home Medications Medication Instructions Recorded Confirmed Type alprazolam 0.5 mg tablet 0.25 mg PO TID 08/09/19 10/03/20 History aspirin 81 mg tablet,delayed 81 mg PO DAILY 08/09/19 12/02/20 History release baclofen 10 mg tablet 10 mg PO DAILY 08/09/19 12/02/20 History dicyclomine 20 mg tablet 20 mg PO QID 08/09/19 10/03/20 History escitalopram oxalate 10 mg tablet 30 mg PO DAILY 08/09/19 12/02/20 History esomeprazole magnesium 40 mg 40 mg PO DAILY 08/09/19 12/02/20 History capsule,delayed release pentosan polysulfate sodium 100 mg 100 mg PO TID 08/09/19 12/02/20 History capsule propranolol 60 mg tablet 60 mg PO BID 08/09/19 10/03/20 History tolterodine 2 mg tablet 2 mg PO BID 08/09/19 12/02/20 History topiramate 100 mg tablet 100 mg PO DAILY 08/09/19 12/02/20 History hydrocortisone 2.5 % topical cream 1 applic [place] QD-BID PRN #30 g 10/18/19 12/02/20 Rx with perineal applicator Diclofenac Sodium [Diclofenac Sod 100 gm TP TID PRN 08/27/20 12/02/20 History 100gm Topical Gel] Hydrocodone/Acetaminophen [[place] 1 each PO Q4-6H PRN #10 tab 09/02/20 12/02/20 Rx 5-325 Tablet] Hydrocortisone Acetate 25 mg [place] DAILY 12/02/20 12/02/20 History Cholecalciferol (Vitamin D3) 50,000 unit PO WEEKLY 12/12/20 12/12/20 History [Vitamin D3 50,000 unit Cap] Colestipol HCl 1 gm PO BID 12/12/20 12/12/20 History Mometasone Furoate [Nasonex] 2 sprays NS DAILY 12/12/20 12/12/20 History Nystatin [Nystatin Oint 100,000 15 gm TP TID 12/12/20 12/12/20 History Units/GM 15GM] Psyllium Husk (with Sugar) 3.4 gm PO DAILY 12/12/20 12/12/20 History [Metamucil Packet] Rosuvastatin Calcium 10 mg PO DAILY 12/12/20 12/12/20 History lamoTRIgine [Lamictal] 200 mg PO DAILY 12/12/20 12/12/20 History polyethylene glycoL 3350 [Miralax 17 gm PO DAILY 12/12/20 12/12/20 History 17gm Packet] Allergies
--- NOTE | 2020-12-18 10:19 | P.OP_ITS ---
Date of procedure: 12/18/20 Pre-op Diagnosis:: Degenerative disc disease of the lumbar spine with radiculopathy Post-op Diagnosis:: Same Procedure performed:: Placement of pain pump generator Surgeon:: Abhishek Henry MD SENIOR IT SECURITY ANALYST:: Emmanuel Conner, Nabeel Ricks, Cade Logan, Fred Wakefield, Other Anesthesia: MAC Estimated blood loss (mL): 15 Operative findings:: Not applicable Operative note:: Patient was placed prone on the operating table and her back and flank regions were prepped and draped in sterile fashion. Paraspinal incision was made by Dr. Jonas which an intrathecal catheter was passed into the intrathecal space to the area desired by Dr. Maynard. Catheter was fixed the paraspinal fascia with fixation device and 2-0 Prolene suture. Flank incision was made on the left side and which is made up pocket for placement of the generator. Utilizing a tunneling device the catheter was passed from the paraspinal incision to the pocket incision. Both incisions irrigated with antibiotic solution. Catheter connected the generator which was placed in the pocket. CSF was aspirated from the generator noting patency of the system subcutaneous tissues closed with 2-0 Vicryl and skin closed stitches of 4-0 nylon. Wound VAC systems and the binder applied to the incisions. The patient tolerated the procedure well and was taken to the recovery room in stable condition. Upon recovery she will be discharged home will follow up in 1 week remove the wound VAC system and in 2 weeks for removal of the sutures. Antibiotic x1 week per protocol. The patient tolerated the procedure well Condition: stable Disposition: PACU Complications:: None
--- NOTE | 2020-12-18 11:14 | P.OP_ITS ---
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 She has failed all previous conservative therapies including injections, oral medications, physical therapy and she is not a surgical candidate due to her severe scoliosis. She had a successful psychological evaluation and a successful intrathecal pump trial. She was 80 to 90% better. Her pump trial was done several months ago she has had insurance issues she presents for permanent placement today. We will do intrathecal morphine 5 mg per ml to start at 0.25 mg/day. Operative findings:: None Operative note:: Informed consent was obtained and the risk and benefits of the procedure were explained to the patient. Patient was taken to the operating room placed prone on the procedure table. Patient was prepped and draped in sterile fashion. C- arm fluoroscopy was used to view the lumbar spine. The skin and subcutaneous tissues were anesthetized using lidocaine. I made an incision adjacent to the L4-L5 and L5-S1 interspace. I dissected down to the lumbar paraspinous fascia. A 14-gauge spinal needle was inserted and advanced into the L4-5 interspace until clear CSF was obtained. After this intrathecal catheter was inserted and advanced to the T12 vertebral body. The stylette of the catheter and the needle were withdrawn. The catheter was secured to the fascia with 2 anchoring devices and 2-[address] Dano biswas created the pump pocket. I prepared the pump with 20 mL of intrathecal morphine 5 mg/mL. I tunneled the catheter from the back to the pump pocket and attached catheter to the pump. We were able to freely withdraw clear CSF through the side-port. Both incisions were irrigated bacitracin solution. Both incisions were then closed with 2-0 Vicryl followed by 4-0 nylon. A wound VAC was placed over both incisions. The patient was placed in an abdominal binder and taken recovery stable condition. Patient tolerated procedure well with no complications. Pump was interrogated and started at 0.25 mg/day of intrathecal morphine. Patient was discharged home neurologically intact with good relief of pain symptoms. Plan and disposition: We will follow-up with this patient in 1 week for wound check. We will follow-up in 2 weeks for suture removal and reprogramming. If patient has any problems or questions she is to call us back in the pain clinic. She is on the lowest dose of her benzodiazepine this is ordered by her psychiatrist with whom we are working with. Condition: stable Disposition: PACU Complications:: None
[2020-12-18 11:33] VITALS: BP 126/85; PULSE 77; RESP 18; TEMP 36.3; O2SAT 95
[2020-12-18 11:43] VITALS: BP 126/91; PULSE 67; RESP 18; O2SAT 97
[2020-12-18 12:20] VITALS: BP 128/83; PULSE 72; RESP 18; O2SAT 100
[2020-12-18 12:40] VITALS: BP 112/80; PULSE 68; RESP 18; O2SAT 96
[2020-12-18 12:53] VITALS: BP 126/78; PULSE 69; RESP 18; O2SAT 97
--- NOTE | 2020-12-18 15:50 | HMH.ANESCL ---
[facility] Anesthesia Checklist - Patient Identification Patient Identification: Arm Band - Structural Data Admitted From: Home Planned Operative Procedure/s: Intrathecal pain pump placement Consent for Planned Operative Procedure(s) Verified: Yes Verified Documents: Surgical Consent, History and Physical - NPO Status Verified Time NPO: 00:00 - Additional verifications Anesthesia Reactions: No Hx Blood Transfusions: No Blood Transfusion Reaction: No - Airway Assessment C-Spine Mobility Assessed: Yes TMJ Mobility Assessed: Yes Dentition: Good Dentition - Neurological Assessment Level of Consciousness: Awake, Alert - Anesthesia Plan Anesthesia Risk discussed: Yes Anesthesia Plan: Verified ASA Class: III Anesthesia Type: MAC [facility] History Medical History: Reports:: Anxiety, Arrhythmia, Cancer (NON HODGKINS LYMPHOMA), Carotid Stenosis, Gall Bladder Disease, Hyperlipidemia, Hypertension, Osteoporosis Denies:: Diabetes Mellitus Type 1, Diabetes Mellitus Type 2, Internal Pacemaker, MRSA, Seizures *Have you ever received a pneumonia vaccine?: Yes *Have you received a flu vaccine this season?: Yes Other Medical History: Reports: Anemia, Arthritis, Chemotherapy, Fibromyalgia, Osteoporosis, Radiation Therapy. Denies: Blood Transfusion Reaction Anesthesia experience/problems:: None Laterality Cases: Bilateral: Cataract Other Surgeries: Yes: No Previous Surgery, BSO, Cardiac Catheterization, Cholecystectomy, Colonoscopy, Dilation and Curettage, Hysterectomy-Total, Hysterectomy-Partial, Other (scoliosis surgery). No: Pacemaker Amputation: No Fractures: No - *Social History Last grade of school completed: High school graduate Smoking Status: Current every day smoker Tobacco Type: cigarettes # Packs/Day (cigarettes): 1 Alcohol Intake: never Substance Use Type: denies use *Occupational Status:: disabled Housing: apartment Household Members: none *Travel in the last 8 weeks: None - Psychiatric History Pschychiatric History:: Reports:: Anxiety Family Hx:: Cancer, Coronary Artery Disease, Diabetes, Heart Attack, Hypertension, Stroke
== END 2020-12-18 13:18 | disposition home or self-care (01) ==
PROVIDERS: PCP Physician Assistant; Visit Provider Anesthesiology
DX: M51.16 Intervertebral disc disorders with radiculopathy, lumbar region (principal); M41.9 Scoliosis, unspecified; I10 Essential (primary) hypertension; E78.5 Hyperlipidemia, unspecified; K21.9 Gastro-esophageal reflux disease without esophagitis; Z72.0 Tobacco use; Z88.6 Allergy status to analgesic agent; Z79.899 Other long term (current) drug therapy
CPT/HCPCS: 62350; 62362; 96374; C1755; C1772; J3370

== ENCOUNTER → 2020-12-26 10:14 | Outpatient (POV) | payer MEDICARE, MEDICAID, SELFPAY ==
[2020-12-26 10:16] VITALS: BP 125/88; PULSE 74; RESP 18; TEMP 36.8; O2SAT 97; BMI 29.2
--- NOTE | 2020-12-26 10:47 | HMH.PMPROC ---
- Procedure Date: 12/26/20 Time: 10:47 Anesthesiologist:: Tiffany Dennis APRN Complications:: None Pre-procedure Diagnosis:: Degenerative disc disease lumbar spine lumbar radiculopathy, back pain Post-procedure Diagnosis:: Same Indications for Procedure:: Patient is a pleasant 65-year-old white female who we have been treating for low back pain with lumbar radiculopathy symptoms and severe scoliosis. Patient currently on 0.25 mg of morphine a day. Patient denies side effects or medication however she states she is not getting any pain relief rating it a 10 out of 10 stating she almost went to the emergency room. Patient and I had a discussion about increasing her and titration. We will set up her PTC today and give her a slight increase. Her wound VAC was removed patient had secured it with packaging tape. Patient does have a rash secondary to the packaging tape however she has no sign symptoms of infection and her stitches are intact. Procedure Details:: Informed consent was obtained and the risk and benefits of the procedure were explained to the patient. The patient was taken to the procedure room where noninvasive monitoring was placed including noninvasive blood pressure cuff and pulse oximeter. Patient's pump was interrogated and reprogrammed. The infusion rate was increased to 0.3 mg of morphine a day and her PTC was set up at 0.03 mg every 4 hours as needed. The patient tolerated the procedure well. Plan and Disposition:: I will see the patient back in 2 weeks reassess her symptoms at that time she has been instructed to call the office if she has any issues prior to her next appointment. Dr. Sue has reviewed this note and agrees with this plan of care. This note was dictated using voice recognition software and may contain errors or omissions
== END ==
PROVIDERS: Visit Provider Clinical Nurse Specialist Family Health
DX: M51.16 Intervertebral disc disorders with radiculopathy, lumbar region (principal); Z45.1 Encounter for adjustment and management of infusion pump
CPT/HCPCS: 62368

== ENCOUNTER → 2021-01-09 09:38 | Outpatient (POV) | payer MEDICARE, MEDICAID, SELFPAY ==
[2021-01-09 10:31] VITALS: BP 124/71; PULSE 85; RESP 18; O2SAT 98; BMI 28.3
--- NOTE | 2021-01-09 12:52 | HMH.PMPROC ---
- Procedure Date: 01/09/21 Time: 12:53 Anesthesiologist:: Tiffany Dennis APRN Complications:: None Pre-procedure Diagnosis:: Degenerative disc disease lumbar spine lumbar radiculopathy, back pain Post-procedure Diagnosis:: Same Indications for Procedure:: Patient is a pleasant 65-year-old white female who presents today for follow-up after intrathecal pain pump placement. Patient rates her pain a 6 out of 10 she denies any side effects to her medication. She is currently on 0.3 mg of morphine a day she would like a slight increase. Patient states she did have some nausea however she is unsure if it is related to the pump. She states that it was a one-time occurrence. Patient and I discussed plan of care. We will increase her today. Her stitches have been removed no sign symptoms of infection. Procedure Details:: Informed consent was obtained and the risk and benefits of the procedure were explained to the patient. The patient was taken to the procedure room where noninvasive monitoring was placed including noninvasive blood pressure cuff and pulse oximeter. Patient's pump was interrogated and reprogrammed. The infusion rate was increased to 0.33 mg of morphine a day. The patient tolerated the procedure well. Plan and Disposition:: Follow-up the patient in 2 weeks. Patient's been instructed to call the office if she has any issues prior to her next appointment. I did call her in some Zofran 4 mg up to twice a day as needed if she does have any nausea. Dr. Sue has reviewed this note and agrees with this plan of care. This note was dictated using voice recognition software and may contain errors or omissions
== END ==
PROVIDERS: Visit Provider Clinical Nurse Specialist Family Health
DX: M51.16 Intervertebral disc disorders with radiculopathy, lumbar region (principal); Z45.1 Encounter for adjustment and management of infusion pump
CPT/HCPCS: 62368

== ENCOUNTER → 2021-01-23 08:43 | Outpatient (POV) | payer MEDICARE, MEDICAID, SELFPAY ==
[2021-01-23 09:03] VITALS: BP 137/90; PULSE 92; RESP 18; O2SAT 97; BMI 29.2
--- NOTE | 2021-01-23 09:13 | P.PCN_ITS ---
- Procedure Date: 01/23/21 Time: 09:13 Anesthesiologist:: Tena Cantu APRN Complications:: None Pre-procedure Diagnosis:: Degenerative disease lumbar spine with lumbar radiculopathy symptoms Post-procedure Diagnosis:: Same Indications for Procedure:: Patient is a 65-year-old white female who presents today for follow-up after intrathecal pain pump implant. The patient does complain of worsening pruritus along with swelling in her bilateral lower extremities. She is also having urinary hesitancy. She says that she does have a history of urinary issues, however, she feels that her hesitancy has worsened since having the pump placed. Her legs are swollen today with 3+ pitting edema. She is also having severe itching. She does rate her pain an 8 out of 10. She does not feel the intrathecal pump is giving her any relief at this time. She is on morphine at 0.33 mg/day. We discussed changing the medication to Dilaudid. She is in agreement with this. She is also having nausea with her morphine. She was given Zofran at her last visit. Physical exam General: Alert and oriented x3, no acute distress, pleasant and cooperative, [on room air] Lungs: Respirations even and unlabored, symmetrical chest expansion Eyes: PERRL Musculoskeletal: Flexion and extension of lumbar spine somewhat guarded secondary to pain, deep tendon reflexes normal, strength in upper and lower extremities [5/5], [abnormal gait noted] Neurological: Speech clear, pharmacy sales assistant equal, no gross sensory deficit Integumentary: Incision well approximated, no redness or drainage. Scabbing noted to midline incision Procedure Details:: Informed consent was obtained and the risk and benefits of the procedure were explained to the patient. Patient was taken to the procedure room where noninvasive monitoring was placed including noninvasive blood pressure cuff and pulse oximeter. Patient's pump was interrogated and was reprogrammed to morphine at 0.24 mg/day. The patient tolerated the procedure well with no complications. Plan and Disposition:: We will schedule the patient for a change out of her medication from morphine to Dilaudid 1 mg/mL. She is having side effects of pruritus, nausea, and leg edema. We will follow up with her after her medication change out to reevaluate her symptoms. She has been instructed to contact clinic if she has any concerns before next appointment. Dr. Sue has reviewed this note and agrees with this plan of care. This note was dictated using voice recognition software and make contain errors or omissions.
== END ==
PROVIDERS: Visit Provider Clinical Nurse Specialist Family Health
DX: M51.16 Intervertebral disc disorders with radiculopathy, lumbar region (principal); Z45.1 Encounter for adjustment and management of infusion pump
CPT/HCPCS: 62368; 99212; G0463

== ENCOUNTER 2021-02-14 11:02 | Day surgery (SDC) | payer MEDICARE, MEDICAID, SELFPAY ==
[2021-02-14 11:36] VITALS: BP 130/63; PULSE 81; RESP 18; TEMP 36.4; O2SAT 98; BMI 29.2
[2021-02-14 13:12] VITALS: BP 134/75; PULSE 76; RESP 18; O2SAT 96
[2021-02-14 13:40] VITALS: BP 134/76; PULSE 85; RESP 20; O2SAT 96
[2021-02-14 15:15] VITALS: BP 135/65; PULSE 80; RESP 18; TEMP 36.4; O2SAT 98
--- NOTE | 2021-02-14 16:22 | HMH.PMPROC ---
- Procedure Date: 02/14/21 Time: 16:22 Anesthesiologist:: Amanda Costello MD Complications:: None Pre-procedure Diagnosis:: Degenerative disc disease of the lumbar spine, lumbar radiculopathy Post-procedure Diagnosis:: Same Indications for Procedure:: This is a very pleasant 65-year-old white male who presents today with low back pain and leg pain related to the above diagnosis. He has an intrathecal pain pump with morphine 5 mg/mL with a daily dose of 0.24 mg/day; utilizes continuous flow and PTC with 0.03 mg boluses 6 times a day with a total max daily dose of 0.415 mg/day however she states that she does not feel that this pain pump is helping her. In addition she notes worsening itching, leg swelling, and urinary hesitancy. Today we will plan to perform a double Procedure and switch out her intrathecal morphine to intrathecal Dilaudid at 1 mg/mL with a daily dose of 0.03 mg/day with constant flow setting. Procedure Details:: Informed consent was obtained and the risks and benefits of the procedure was explained to the patient. The patient was taken to the procedure room. The pump was interrogated. The area over the pump was prepped using ChloraPrep. The pump was accessed with a 22-gauge needle. Approximately [16.5] mL's of the intrathecal solution was withdrawn and discarded as needle was withdrawn and discarded. The pump was then refilled with 20 mL's of intrathecal dilaudid 1mg/ml. Next, the catheter side-port was accessed and 2 mL of medication and CSF was freely withdrawn. The pump was interrogated again so that the medication in the internal tubing can travel to the tip of the catheter. Once the old medication was now and then catheter after 9 minutes, 2 mL of fluid again was withdrawn from the catheter side-port. Next the needle was withdrawn and discarded. The pump was re-interrogated so that the daily dose will be 0.03 mg/day with the constant flow setting]. The patient tolerated the procedure well with no complications. Next refill date is on [08/20/2022]. Plan and Disposition:: Follow-up with the patient in 1 week. We will reevaluate her pain symptoms at that time. We will make further adjustments and potentially increase by 20% if the patient's pain remains uncontrolled.
== END 2021-02-14 14:00 | disposition home or self-care (01) ==
LOC: SC.PAINP 11:04
PROVIDERS: PCP Physician Assistant; Visit Provider Anesthesiology Pain Medicine
DX: M51.16 Intervertebral disc disorders with radiculopathy, lumbar region (principal); Z45.1 Encounter for adjustment and management of infusion pump
CPT/HCPCS: 62370; C1772

== ENCOUNTER → 2021-02-20 10:11 | Outpatient (POV) | payer MEDICARE, MEDICAID, SELFPAY ==
[2021-02-20 10:29] VITALS: BP 150/58; PULSE 75; RESP 18; O2SAT 98; BMI 28.3
--- NOTE | 2021-02-20 13:52 | HMH.PMPROC ---
- Procedure Date: 02/20/21 Time: 10:30 Anesthesiologist:: Tena Cantu APRN Complications:: None Pre-procedure Diagnosis:: Degenerative disc disease lumbar spine with lumbar radiculopathy symptoms Post-procedure Diagnosis:: Same Indications for Procedure:: Patient is a 65-year-old white female who presents today for intrathecal pain pump adjustment. She has been treated for degenerative disc disease lumbar spine with lumbar radiculopathy symptoms. She was recently changed from morphine to Dilaudid in her intrathecal pain pump due to swelling in her lower extremities. She did contact Dr. Nelly Woods over the weekend with complaints of worsening pain. Her pain is a 10 out of 10 today. She is currently on a dose of Dilaudid at 0.03 mg/day. Patient says that she was having severe nausea and vomiting along with severe pain since the change of the medication. We will increase her today. She says that she is doing better with her symptoms since the medication was changed. Patient's Damian #[id number] has been reviewed and is appropriate. Drug screen is appropriate. Patient also takes Xanax 0.[address] Nazario. Physical exam General: Alert and oriented x3, no acute distress, pleasant and cooperative, [on room air] Lungs: Respirations even and unlabored, symmetrical chest expansion Eyes: PERRL Musculoskeletal: Flexion and extension of [] lumbar spine somewhat guarded secondary to pain, deep tendon reflexes normal, strength in upper and lower extremities [5/5], [abnormal gait noted] Neurological: Speech clear, customer service representative teacher equal, no gross sensory deficit Procedure Details:: Informed consent was obtained and the risk and benefits of the procedure were explained to the patient. Patient was taken to the procedure room where noninvasive monitoring was placed including noninvasive blood pressure cuff and pulse oximeter. Patient's pump was interrogated and was reprogrammed to Dilaudid 0.06 mg/day, PTC started at 0.006 up to 4 times daily. The patient tolerated the procedure well with no complications. Plan and Disposition:: We will see the patient back in 2 weeks for reevaluation. She has been instructed to contact the clinic if she has any concerns for next ointment. Patient has been instructed to contact the clinic with any concerns before the next appointment. Dr. Sue has reviewed this note and agrees with this plan of care. This note was dictated using voice recognition software and make contain errors or omissions.
== END ==
PROVIDERS: PCP Physician Assistant; Visit Provider Clinical Nurse Specialist Family Health
DX: M51.16 Intervertebral disc disorders with radiculopathy, lumbar region (principal); Z45.1 Encounter for adjustment and management of infusion pump
CPT/HCPCS: 62368

== ENCOUNTER → 2021-03-06 09:02 | Outpatient (POV) | payer MEDICARE, MEDICAID, SELFPAY ==
[2021-03-06 09:34] VITALS: BP 125/73; PULSE 67; RESP 18; O2SAT 97; BMI 30.5
--- NOTE | 2021-03-06 09:43 | HMH.PAINSOAP ---
[facility] Pain Management SOAP Note Subjective:: Patient is a 65-year-old white female who presents today for follow-up. She is being seen in our clinic for degenerative disc disease lumbar spine with lumbar radiculopathy symptoms and chronic low back pain. Patient says she is doing excellent with low back pain at this time. Her pain is a 0 out of 10 to her low back area. Unfortunately, her pain is primarily in her bilateral lower extremities at this time. She reports to be having a drawing of both feet along with numbness and tingling in her feet. She is also having edema in her bilateral legs and feet. She says this has been ongoing since having morphine in her intrathecal pump. The medication has been changed out and she does have Dilaudid in her intrathecal pump at this time. She says that she is 80% better with her symptoms, however, she feels that her symptoms she is having now is something that will last her lifetime. She says that she does not feel it is related to any other pathology other than the medication that was in her pump. We discussed possible nerve conduction study, however, the patient says you are not going to blame my symptoms on other issues . Her pain is a 10 out of 10 to her bilateral lower extremities. She is now having to walk on the outer portion of her feet for relief. She is having difficulty standing and walking due to the pain in her lower extremities. Patient and I did discuss wheelchair for her when leaving the home. She says that she has not been approved by her insurance at this time. We will seek approval for the patient to get a wheelchair approved so that she can travel without having to walk. Review of Systems General: No recent weight changes, no fever, no sleep disturbances Respiratory: No cough, no shortness of air, no recurring pulmonary infections Cardiovascular/peripheral vascular: No chest pain, no palpitations, no edema, no shortness of breath Gastrointestinal: No new onset incontinence, normal bowel movements reported Genitourinary: No new onset incontinence Musculoskeletal: Bilateral leg and foot pain Psychiatric: Normal mood/affect Neurological: [Denies weakness in extremities], [denies balance issues] Objective:: Physical exam General: Alert and oriented x3, no acute distress, pleasant and cooperative, [on room air] Lungs: Respirations even and unlabored, symmetrical chest expansion Eyes: PERRL Musculoskeletal: Flexion and extension of [] bilateral lower extremities somewhat guarded secondary to pain, deep tendon reflexes normal, strength in upper and lower extremities [4/5], [abnormal gait noted] Integumentary: 1+ pitting edema bilateral lower extremities Neurological: Speech clear, tutoring manager equal, no gross sensory deficit Assessment:: Degenerative disc disease lumbar spine with lumbar radiculopathy symptoms, bilateral leg pain Plan:: Patient did not want any changes to her intrathecal therapy at this time. She says she is getting excellent relief to her low back area. She is on Dilaudid at 0.06 mg/day. She is continuing to have numbness and tingling in her bilateral lower extremities with 1+ pitting edema. She is now having a drawing sensation of her bilateral feet and toes. I did advise the patient she may benefit from a neurology appointment/nerve conduction study, however, the patient has declined. She would like to follow-up with Dr. Villegas at her next visit. Schedule her follow-up with him. She is also requesting a wheelchair for travel. We will order the patient a wheelchair to help with traveling since she is unable to walk on her feet at this time. Patient has been instructed to contact the clinic with any concerns before the next appointment. Dr. Sue has reviewed this note and agrees with this plan of care. This note was dictated using voice recognition software and make contain errors or omissions. [facility] History I have reviewed the patient's past medical
== END ==
PROVIDERS: PCP Physician Assistant; Visit Provider Clinical Nurse Specialist Family Health
DX: M51.16 Intervertebral disc disorders with radiculopathy, lumbar region (principal); M79.605 Pain in left leg; M79.604 Pain in right leg
CPT/HCPCS: 99212; G0463

== ENCOUNTER → 2021-03-20 08:39 | Outpatient (POV) | payer MEDICARE, MEDICAID, SELFPAY ==
[2021-03-20 08:48] VITALS: BP 144/68; PULSE 84; RESP 18; O2SAT 97; BMI 26.9
--- NOTE | 2021-03-20 09:06 | P.PCN_ITS ---
- Procedure Date: 03/20/21 Time: 09:06 Anesthesiologist:: Tena Cantu APRN Complications:: None Pre-procedure Diagnosis:: Degenerative disc disease lumbar spine with lumbar radiculopathy symptoms Post-procedure Diagnosis:: Same Indications for Procedure:: Patient is a 65-year-old white female who presents today for follow-up and medication adjustment in her intrathecal pain pump. Patient is currently on Dilaudid 0.06 mg/day. She wants an increase today. Her pain is a 10 out of 10. Patient was changed from morphine to Dilaudid due to bilateral lower extremity edema. Patient continues to complain that she has tenderness and a rash to her bilateral lower extremities that she feels is related to the medication that was in the intrathecal pump. She says that due to having to wait approximately 6 weeks to have the medication removed, she has damage to her legs . She says that the medication was not approved to be removed by her insurance company causing her to have damaged while she had to wait. Patient is having difficulty with ambulation both in and out of her home. She is having pain in her bilateral lower extremities with radiation into her hips and lower extremities. She is requesting repeat lumbar epidural steroid injection for some immediate relief. She says the injections give her 2 to 3 weeks of relief. She is unable to sleep, stand, walk, or sit for prolonged periods due to pain. She is attempting a home stretching program with difficulty. She has been taking Tylenol which is not giving her much relief. She would like to see Dr. Villegas at her next visit. She wants to undergo injective therapy with him. She would like an increase today, however, a small increase due to concerns of side effects to the medication. Physical exam General: Alert and oriented x3, no acute distress, pleasant and cooperative, [on room air] Lungs: Respirations even and unlabored, symmetrical chest expansion Eyes: PERRL Musculoskeletal: Flexion and extension of [] lumbar spine somewhat guarded secondary to pain, deep tendon reflexes normal, strength in upper and lower extremities [5/5], [abnormal gait noted] Neurological: Speech clear, neonatal nurse practitioner equal, no gross sensory deficit Procedure Details:: Informed consent was obtained and the risk and benefits of the procedure were explained to the patient. Patient was taken to the procedure room where noninvasive monitoring was placed including noninvasive blood pressure cuff and pulse oximeter. Patient's pump was interrogated and was reprogrammed to increase to Dilaudid at 0.066 mg/day. The patient tolerated the procedure well with no complications. Plan and Disposition:: We will order the patient a wheelchair for in-home use. She is now unable to ambulate in her home. We will also schedule her for a lumbar epidural steroid injection at L4-L5 area. She is having worsening pain in her low back, bilateral hips, and lower extremities. She was increased today with her intrathecal therapy. She has asked to see Dr. Villegas only. We will see her back for her next intrathecal refill. Dr. Villegas will see her for a lumbar epidural steroid injection. She is not on any anticoagulation therapy. Risks and benefits of the procedure have been explained to the patient. Patient would like to proceed with the procedure. Possible side effects of corticosteroids have been discussed with the patient. Patient has been instructed to contact the clinic with any concerns before the next appointment. Dr. Sue has reviewed this note and agrees with this plan of care. This note was dictated using voice recognition software and make contain errors or omissions.
== END ==
PROVIDERS: PCP Physician Assistant; Visit Provider Clinical Nurse Specialist Family Health
DX: M51.16 Intervertebral disc disorders with radiculopathy, lumbar region (principal); Z45.1 Encounter for adjustment and management of infusion pump
CPT/HCPCS: 62368

== ENCOUNTER → 2021-04-14 14:20 | Day surgery (SDC) | payer MEDICARE, MEDICAID, SELFPAY ==
[2021-04-11 09:06] VITALS: BP 134/60; PULSE 78; RESP 18; TEMP 36.4; O2SAT 98; BMI 26.4
[2021-04-11 09:21] VITALS: BP 126/82; PULSE 84; RESP 18; O2SAT 98
[2021-04-11 09:26] VITALS: BP 158/83; PULSE 79; RESP 18; O2SAT 98
--- NOTE | 2021-04-11 09:40 | HMH.PMPROC ---
- Procedure Date: 04/11/21 Time: 09:40 Anesthesiologist:: Todd Sue MD Complications:: None Pre-procedure Diagnosis:: Degenerative disc disease of lumbar spine with lumbar radiculopathy symptoms and lumbar scoliosis Post-procedure Diagnosis:: Same Indications for Procedure:: Patient is a pleasant 65-year-old white female who we are treating for low back pain with lumbar radiculopathy symptoms and lumbar scoliosis. She does have an intrathecal Dilaudid pain pump in place. She had severe side effects with her intrathecal morphine infusion. She was recently switched to Dilaudid several weeks ago. She has some benefit from this with her upper back pain. She still has low back pain with lumbar radicular symptoms. She does have severe scoliosis. She is also having some intermittent swelling in her feet. We will do lumbar pleural steroid injection today to see if this helps with her symptoms. We will continue her intrathecal Dilaudid infusion at 0.06 mg/day Procedure Details:: Lumbar epidural steroid injection under fluoroscopy Informed consent was obtained and the risk and benefits of the procedure was explained to the patient. The patient was taken to the procedure room. The patient was placed prone on the procedure table. The patient was prepped and draped in sterile fashion. C-arm fluoroscopy was used to view the lumbar spine. Skin and subcutaneous tissues were anesthetized using lidocaine. I placed an 18-gauge epidural needle and advanced into the L4-L5 interspace using fluoroscopic guidance and [id number] to air. After confirmation of needle placement in the epidural space with dye I injected 2 mL of lidocaine 1.5% with Depo-Medrol 80 mg. Patient tolerated the procedure well with no complications. Plan and Disposition:: We will follow up with her in 2 weeks. We will reevaluate her symptoms at that time.
[2021-04-11 09:43] VITALS: BP 148/70; PULSE 74; RESP 18; O2SAT 98
== END ==
PROVIDERS: PCP Physician Assistant; Visit Provider Anesthesiology
DX: M51.16 Intervertebral disc disorders with radiculopathy, lumbar region (principal); M46.1 Sacroiliitis, not elsewhere classified; Z72.0 Tobacco use; E78.5 Hyperlipidemia, unspecified; I10 Essential (primary) hypertension; F31.9 Bipolar disorder, unspecified; F43.10 Post-traumatic stress disorder, unspecified; K21.9 Gastro-esophageal reflux disease without esophagitis; F41.9 Anxiety disorder, unspecified
CPT/HCPCS: 62323; J1040; Q9966

== ENCOUNTER → 2021-06-12 09:20 | Outpatient (POV) | payer MEDICARE, MEDICAID, SELFPAY ==
--- NOTE | 2021-06-12 10:18 | HMH.VVPMSO ---
[facility] PM Virtual Visit SOAP Consent for virtual visit:: With the recent concerns about the COVID-19, we are trying to minimize exposure to you by shifting to telehealth appointments whenever possible. It restricts me from seeing you in person, but the trade off is protecting you during this pandemic. Can you see and hear me okay, and do you consent to this option? If not, I would be happy to see if we can reschedule your appointment in the future, when feasible. Has patient consented to this virtual visit?: Yes Subjective:: Patient is a 66-year-old white female who is following up via telehealth phone visit. The patient is treated for degenerative disc disease lumbar spine with lumbar radiculopathy symptoms and lumbar scoliosis. Patient does have an intrathecal pain pump. She did initially start with morphine for which she says caused her to have severe side effects with swelling and pain in her bilateral legs and feet. She is reporting to have continued side effects from previous morphine. She no longer has morphine in the pump. She does have Dilaudid. She is a home refill through [employer]. She is calling today risk reports of pain in her low back and bilateral hips as well as her bilateral lower extremities going to the feet. She says that the pain is worse with standing and walking. She says that she is unable to place her feet on the ground without having significant pain. She also reports to have tenderness to bilateral buttock. Patient says that SI injections have not given her any significant relief in the past. She did see her primary care provider who did start her on antibiotic therapy for urinary tract infection. She says her last dose was a few weeks ago. She says that the antibiotics did not help. She is not planning to take any further antibiotic therapy at this time, however. Today, the patient is rating her pain a seven or an 8 out of 10. Review of Systems General: No recent weight changes, no fever, no sleep disturbances Respiratory: No cough, no shortness of air, no recurring pulmonary infections Cardiovascular/peripheral vascular: No chest pain, no palpitations, no edema, no shortness of breath Gastrointestinal: No new onset incontinence, normal bowel movements reported Genitourinary: No new onset incontinence Musculoskeletal: Low back pain with radiation into bilateral hips, buttock bilateral, bilateral legs and feet Psychiatric: [Normal mood/affect] Neurological: [Denies weakness in extremities], [denies balance issues] Objective:: Physical exam General: Alert and oriented x3, pleasant and cooperative Assessment:: Degenerative disc disease lumbar spine with lumbar radiculopathy symptoms, scoliosis Plan:: We will schedule the patient for lumbar epidural steroid injection L4-L5. The patient has had epidural steroid injection in the past, most notably in March 2021. She got significant relief up to 80% relief with this injection. She would like to undergo a repeat injection. She is not on any anticoagulation therapy. We will follow up with her after her injection for reevaluation of symptoms. The patient's follow-up visit can be done via telehealth. Possible side effects of corticosteroids have been discussed with the patient. Risks and benefits of the procedure have been explained to the patient. Patient would like to proceed with the procedure. Patient has been instructed to contact the clinic with any concerns before the next appointment. Dr. Sue has reviewed this note and agrees with this plan of care. This note was dictated using voice recognition software and make contain errors or omissions. Time In:: 09:30 Time Out:: 09:45 [facility] History I have reviewed the patient's past medical history: Yes Medical History: Reports:: Anxiety, Arrhythmia, Carotid Stenosis, Gall Bladder Disease, Hyperlipidemia, Hypertension, Osteoporosis Denies:: Cancer, Diabetes Mellitus Type 1, Diabetes Yessica
== END ==
PROVIDERS: Visit Provider Clinical Nurse Specialist Family Health
DX: M51.16 Intervertebral disc disorders with radiculopathy, lumbar region (principal); M41.9 Scoliosis, unspecified
CPT/HCPCS: 99212; G0463

== ENCOUNTER 2021-06-27 14:25 | Day surgery (SDC) | payer MEDICARE, MEDICAID, SELFPAY ==
[2021-06-27 14:28] VITALS: BP 123/74; PULSE 82; RESP 18; TEMP 36.6; O2SAT 96; BMI 26.4
--- NOTE | 2021-06-27 14:49 | HMH.PMPROC ---
- Procedure Date: 06/27/21 Time: 14:49 Anesthesiologist:: Todd Sue MD Complications:: None Pre-procedure Diagnosis:: Degenerative disc disease of lumbar spine with lumbar radiculopathy symptoms Post-procedure Diagnosis:: Same Indications for Procedure:: Patient is a pleasant 66-year-old white female who we are treating for low back pain with lumbar radiculopathy symptoms. She does have an intrathecal pain pump with Dilaudid. She has having some increasing pain in both legs. She has not had relief with any SI joint injections. We will do a lumbar epidural steroid injection today to help her with her pain symptoms. Procedure Details:: Informed consent was obtained and the risk and benefits of the procedure was explained to the patient. The patient was taken to the procedure room. The patient was placed prone on the procedure table. The patient was prepped and draped in sterile fashion. C-arm fluoroscopy was used to view the lumbar spine. Skin and subcutaneous tissues were anesthetized using lidocaine. I placed an 18-gauge epidural needle and advanced into the L4-L5 interspace using fluoroscopic guidance and [id number] to air. After confirmation of needle placement in the epidural space with dye I injected 2 mL of lidocaine 1.5% with Depo-Medrol 80 mg. Patient tolerated the procedure well with no complications. Plan and Disposition:: We will follow-up with her in 2 weeks. Will reevaluate symptoms at that time.
[2021-06-27 14:52] VITALS: BP 149/65; PULSE 84; RESP 18; O2SAT 95
[2021-06-27 14:53] VITALS: PULSE 83; RESP 18; O2SAT 95
[2021-06-27 15:04] VITALS: BP 139/59; PULSE 81; RESP 20; O2SAT 97
== END 2021-06-27 15:05 | disposition home or self-care (01) ==
LOC: SC.PAINP 14:27
PROVIDERS: PCP Physician Assistant; Visit Provider Anesthesiology
DX: M51.16 Intervertebral disc disorders with radiculopathy, lumbar region (principal); E78.5 Hyperlipidemia, unspecified; I10 Essential (primary) hypertension; F41.9 Anxiety disorder, unspecified; D64.9 Anemia, unspecified; K82.9 Disease of gallbladder, unspecified; M79.7 Fibromyalgia; Z72.0 Tobacco use; F31.9 Bipolar disorder, unspecified; F43.10 Post-traumatic stress disorder, unspecified; F42.9 Obsessive-compulsive disorder, unspecified; Z88.6 Allergy status to analgesic agent
CPT/HCPCS: 62323; J1040; Q9966

== ENCOUNTER → 2021-07-15 09:37 | Outpatient (POV) | payer MEDICARE, MEDICAID, SELFPAY ==
--- NOTE | 2021-07-15 09:45 | HMH.VVPMSO ---
[facility] Virtual Visit SOAP Consent for virtual visit:: With the recent concerns about the COVID-19, we are trying to minimize exposure to you by shifting to telehealth appointments whenever possible. It restricts me from seeing you in person, but the trade off is protecting you during this pandemic. Can you see and hear me okay, and do you consent to this option? If not, I would be happy to see if we can reschedule your appointment in the future, when feasible. Has patient consented to this virtual visit?: Yes Subjective:: Patient is a pleasant 66 year old who is following up via telehealth visit. She recently underwent a lumbar epidural steroid. She reports that she got less relief with the last epidural steroid injection compared to the first injection. She is having muniz in her low back with radiation into bilateral hips and legs. She rates her pain a 7 or 8 out of 10 today. She does have a pain pump in place as well. The pump does give her relief of her low ack pain. She has had bilateral SI injections with no relief. She would like to schedule a repeat injection. She says the pain is worse with standing and walking and does improve with sitting. She feels that most of her pain presented after getting morphine in her intrathecal pump. The morphine in the pump has since been removed. She says that the injections give her up to 60 to 70% relief for short time. She is not on any anticoagulation therapy. She does continue with home stretching. She has had physical therapy for greater than 6 weeks in the past. Review of Systems General: No recent weight changes, no fever, no sleep disturbances Respiratory: No cough, no shortness of air, no recurring pulmonary infections Cardiovascular/peripheral vascular: No chest pain, no palpitations, no edema, no shortness of breath Gastrointestinal: No new onset incontinence, normal bowel movements reported Genitourinary: No new onset incontinence Musculoskeletal: Low back pain with radiation into bilateral hips and legs Psychiatric: [Normal mood/affect] Neurological: [Denies weakness in extremities], [denies balance issues] Objective:: Physical exam General: Alert and oriented x3, no acute distress, pleasant and cooperative Assessment:: Degenerative disc disease lumbar spine with lumbar radiculopathy symptoms Plan:: We will schedule the patient for repeat lumbar epidural steroid injection at L4-L5 area. This will be the patient third lumbar epidural steroid injection. She is not on any anticoagulation therapy. She has tried and failed conservative therapies of physical therapy for more than 6 weeks and continued home stretching. She also uses ice and heat therapies. She does have an intrathecal pain pump. She is not diabetic. We'll see her back after the injection for further evaluation of symptoms. Possible side effects of corticosteroids have been discussed with the patient. Risks and benefits of the procedure have been explained to the patient. Patient would like to proceed with the procedure. Patient has been instructed to contact the clinic with any concerns before the next appointment. Dr. Sue has reviewed this note and agrees with this plan of care. This note was dictated using voice recognition software and make contain errors or omissions. Time In:: 09:30 Time Out:: 09:51 [facility] History I have reviewed the patient's past medical history: Yes Medical History: Reports:: Anxiety, Arrhythmia, Carotid Stenosis, Gall Bladder Disease, Hyperlipidemia, Hypertension, Osteoporosis Denies:: Cancer, Diabetes Mellitus Type 1, Diabetes Mellitus Type 2, Internal Pacemaker, MRSA, Seizures *Have you ever received a pneumonia vaccine?: No *Have you received a flu vaccine this season?: No Other Medical History: Reports: Anemia, Arthritis, Chemotherapy, Fibromyalgia, Osteoporosis, Radiation Therapy. Denies: Blood Transfusion Reaction Other Surgeries: Yes: No Previous Surgery, BSO, Cardiac Cathete
== END ==
PROVIDERS: Visit Provider Clinical Nurse Specialist Family Health
DX: M51.16 Intervertebral disc disorders with radiculopathy, lumbar region (principal)
CPT/HCPCS: 99212; G0463

== ENCOUNTER 2021-10-31 12:26 | Outpatient (CLI) | payer MEDICARE, MEDICAID, SELFPAY ==
[2021-10-31 12:42] VITALS: BP 119/79; BP 140/72; BP 141/74; PULSE 73; PULSE 75; RESP 17; RESP 18; TEMP 36.6; O2SAT 97; O2SAT 98; BMI 28.5
--- NOTE | 2021-10-31 13:06 | HMH.PMPROC ---
- Procedure Date: 10/31/21 Time: 13:06 Anesthesiologist:: Todd Sue MD Complications:: None Pre-procedure Diagnosis:: Degenerative disc disease of lumbar spine with lumbar radiculopathy symptoms Post-procedure Diagnosis:: Same Indications for Procedure:: This patient is a pleasant 66-year-old white female who we are treating for low back pain with lumbar radiculopathy symptoms. She has significant scoliosis and has an intrathecal pain pump in place which is not really helping her. She has benefited from previous epidural steroid injections. We will do repeat lumbar epidural steroid injection under fluoroscopy today. Procedure Details:: Informed consent was obtained and the risk and benefits of the procedure was explained to the patient. The patient was taken to the procedure room. The patient was placed prone on the procedure table. The patient was prepped and draped in sterile fashion. C-arm fluoroscopy was used to view the lumbar spine. Skin and subcutaneous tissues were anesthetized using lidocaine. I placed an 18-gauge epidural needle and advanced into the L4-L5 interspace using fluoroscopic guidance and [id number] to air. After confirmation of needle placement in the epidural space with dye I injected 2 mL of lidocaine 1.5% with Depo-Medrol 80 mg. Patient tolerated the procedure well with no complications. Plan and Disposition:: We will follow-up with her in 2 weeks. Will reevaluate symptoms at that time.
[2021-10-31 13:08] VITALS: BP 156/67; PULSE 71; O2SAT 99
--- NOTE | 2021-10-31 13:19 | MM_ITS ---
PROCEDURE INFORMATION: Exam: MG Bilateral Screening 3D Mammography Exam date and time: 10/31/2021 1:19 PM Age: 66 years old Clinical indication: Encounter for screening mammogram for malignant neoplasm of breast. Personal history of non-Hodgkin's lymphoma. A paternal aunt had breast cancer. TECHNIQUE: Imaging protocol: Bilateral Screening tomosynthesis and 2D mammography including computer-aided detection (CAD) when performed. COMPARISON: 1. MG MM DIG SCREENING MAMM BI W/CAD 08/08/2020 9:35 AM 2. MG MM DIG SCREENING MAMM BI W/CAD 08/09/2019 11:36 AM FINDINGS: MAMMOGRAPHY: Breast composition: The breast tissue is heterogeneously dense, which may obscure small masses. Mass: None. Architectural distortion: None. Calcifications: No suspicious calcifications. Asymmetric density: None. Skin thickening: None. Axillary adenopathy: None. IMPRESSION: No mammographic evidence of malignancy. Annual screening is recommended unless otherwise clinically indicated. ASSESSMENT: BI-RADS Category 1: Negative
[2021-10-31 14:01] LABS: Basophils # 0.1 K/mm3 (0-0.2); Basophils % 2.3 % (0.1-2.0); Eosinophils % 0.2 % (0.1-12.0); Hematocrit 38.1 % (37.0-47.0); Hemoglobin 12.2 g/dL (12.2-16.2); Lymphocytes # 2.1 K/mm3 (0.7-4.5); Lymphocytes % 44.1 % (10-50); Mean Corpuscular Hemoglobin 31.6 pg (27.0-31.2); Mean Corpuscular Volume 98.5 fl (81-99); Mean Platelet Volume 8.5 fl (7.4-10.4); Monocytes # 0.3 K/mm3 (0.1-1.0); Monocytes % 6.5 % (1.7-9.3); Neutrophils # 2.2 K/mm3 (1.8-7.8); Platelet Count 167 K/mm3 (142-424); Red Blood Count 3.87 M/mm3 (4.20-5.40); Red Cell Distribution Width 14.4 % (11.5-17.5); White Blood Count 4.7 K/mm3 (4.8-10.8)
[2021-10-31 14:31] LABS: Alanine Aminotransferase 13 U/L (12-78); Albumin Level 4.3 g/dl (3.5-5.0); Albumin/Globulin Ratio 1.8 (1.1-1.8); Alkaline Phosphatase 65 U/L (38-126); Aspartate Amino Transferase 20 U/L (14-36); Bilirubin,Total 0.4 mg/dl (0.2-1.3); Blood Urea Nitrogen 11 mg/dl (7-17); Carbon Dioxide 24 mmol/L (22.0-30.0); Chloride 110 mmol/L (98-107); Chol/HDL Ratio 3.5 (1-3.5); Cholesterol 141 mg/dl (140-200); Creatinine Clearance Estimated 56 mL/min (50-200); Estimated Glomerular Filt Rate 62 ml/min (>60); GFR (African American) 75 ML/MIN (>60); Globulin 2.4 g/dL (1.3-3.2); Glucose 96 mg/dl (74-100); HDL Cholesterol 40 mg/dl (40-60); Sodium 142 mmol/L (136-145); Total Protein,Serum 6.7 g/dl (6.3-8.2); Triglycerides 159 mg/dl (30-150); VLDL Cholesterol 32 mg/dL (0-40)
[2021-10-31 14:42] LABS: Direct LDL Cholesterol 63.34 mg/dL (100-129)
[2021-10-31 14:48] LABS: T4 (Thyroxine) 7.6 ug/dl (5.53-11.0)
[2021-10-31 15:02] LABS: Thyroid Stimulating Hormone 3.37 uIU/mL (0.465-4.68)
[2021-11-11 17:21] LABS: 1,25 Dihydroxy Vitamin D 62 pg/mL (.); 1,25-Dihydroxy, Vitamin D-2 <10 pg/mL (.); 1,25-Dihydroxy, Vitamin D-3 54 pg/mL (.)
== END 2021-10-31 13:08 | disposition home or self-care (01) ==
PROVIDERS: PCP Physician Assistant; Visit Provider Physician Assistant
DX: Z12.31 Encounter for screening mammogram for malignant neoplasm of breast (principal); I10 Essential (primary) hypertension; E78.49 Other hyperlipidemia; E55.9 Vitamin D deficiency, unspecified; M51.36 Other intervertebral disc degeneration, lumbar region
CPT/HCPCS: 36415; 77063; 77067; 80053; 80061; 82652; 84436; 84443; 85025; J1040; Q9966

== ENCOUNTER → 2022-05-28 11:19 | Outpatient (CLI) | payer MEDICARE, MEDICAID, SELFPAY ==
[2022-05-28 11:58] LABS: Basophils # 0.1 K/mm3 (0-0.2); Basophils % 0.8 % (0.1-2.0); Eosinophils % 0.2 % (0.1-12.0); Hematocrit 40.1 % (37.0-47.0); Hemoglobin 12.8 g/dL (12.2-16.2); Lymphocytes # 2.2 K/mm3 (0.7-4.5); Lymphocytes % 35.5 % (10-50); Mean Corpuscular Hemoglobin 31.2 pg (27.0-31.2); Mean Corpuscular Volume 97.4 fl (81-99); Mean Platelet Volume 7.9 fl (7.4-10.4); Monocytes # 0.5 K/mm3 (0.1-1.0); Monocytes % 7.6 % (1.7-9.3); Neutrophils # 3.5 K/mm3 (1.8-7.8); Neutrophils % 55.9 % (37.0-80.0); Platelet Count 170 K/mm3 (142-424); Red Blood Count 4.11 M/mm3 (4.20-5.40); Red Cell Distribution Width 14.8 % (11.5-17.5); White Blood Count 6.3 K/mm3 (4.8-10.8)
[2022-05-28 12:14] LABS: Hemoglobin A1C 5.4 % (4.0-6.0)
[2022-05-28 12:21] LABS: Alanine Aminotransferase 15 U/L (12-78); Albumin Level 4.2 g/dl (3.5-5.0); Albumin/Globulin Ratio 1.7 (1.1-1.8); Alkaline Phosphatase 99 U/L (38-126); Aspartate Amino Transferase 21 U/L (14-36); Blood Urea Nitrogen 14 mg/dl (7-17); Calcium 9.1 mg/dl (8.4-10.2); Carbon Dioxide 24 mmol/L (22.0-30.0); Chloride 106 mmol/L (98-107); Chol/HDL Ratio 4.2 (1-3.5); Cholesterol 167 mg/dl (140-200); Estimated Glomerular Filt Rate 49 ml/min (>60); GFR (African American) 60 ML/MIN (>60); Globulin 2.5 g/dL (1.3-3.2); Glucose 88 mg/dl (74-100); HDL Cholesterol 40 mg/dl (40-60); Sodium 139 mmol/L (136-145); Total Protein,Serum 6.7 g/dl (6.3-8.2); Triglycerides 230 mg/dl (30-150); VLDL Cholesterol 46 mg/dL (0-40)
[2022-05-28 12:22] LABS: Bilirubin,Total < 0.1 mg/dl (0.2-1.3)
[2022-05-28 12:33] LABS: Direct LDL Cholesterol 71.92 mg/dL (100-129)
[2022-05-28 12:38] LABS: 25-OH Vitamin D, Total 49.9 ng/mL (30-100)
[2022-05-28 12:52] LABS: Thyroid Stimulating Hormone 5.12 uIU/mL (0.465-4.68)
== END ==
PROVIDERS: PCP Physician Assistant; Visit Provider Physician Assistant
DX: Z00.00 Encounter for general adult medical examination without abnormal findings (principal); E55.9 Vitamin D deficiency, unspecified; E78.5 Hyperlipidemia, unspecified
CPT/HCPCS: 36415; 80053; 80061; 82306; 83036; 84443; 85025

== ENCOUNTER 2022-06-11 08:54 | Day surgery (SDC) | payer MEDICARE, MEDICAID, SELFPAY ==
[2022-06-08 13:32] VITALS: BMI 23.7
[2022-06-11 09:21] VITALS: BP 148/67; PULSE 84; RESP 18; TEMP 36.7; O2SAT 96
[2022-06-11 10:08] VITALS: O2SAT 97
--- NOTE | 2022-06-11 10:35 | HMH.SCOPE ---
Procedure: Date: 06/11/22 Patient Date of :: 1955 Procedure Performed:: Upper Endoscopy Diagnostic Indications:: Chronic abdominal pain Performing Provider:: Emily Abreu MD Referring Provider:: Mary Woodward Sedation:: Propofol Procedure:: The gastroscope was gently passed through the incisoral orifice into the oral cavity and under direct visualization the esophagus was intubated. The endoscope was passed down the esophagus, through the stomach, and into the duodenum. Color, texture, mucosa, and anatomy of the esophagus, stomach, and duodenum were carefully examined with the scope. Findings:: Oropharynx: normal Esophagus: normal EG Junction: intact at 40 cm, moderate sized hiatus hernia noted Cardia: normal Fundus: normal Body: normal Antrum: normal Duodenal bulb: normal Duodenum (second and third portion): normal Impression: Hiatus hernia, otherwise unremarkable EGD Recommendations:: Symptomatic therapy as clinically indicated Complications:: None Estimated blood obtained (mL): 0
--- NOTE | 2022-06-11 10:38 | HMH.SCOPE ---
Procedure: Date: 06/11/22 Patient Date of :: 1955 Procedure Performed:: Colonoscopy with polypectomy Indications:: History of polyps Performing Provider:: Emily Abreu MD Referring Provider:: Maria Elena Woodward Sedation:: Propofol Procedure:: After placing the patient in the left lateral decubitus position, the colonoscopy was gently inserted into the rectum and under direct visualization advanced to the cecum which was identified by transillumination in the right lower quadrant, identification of the ileocecal valve, appendiceal orifice, and cecal strap. Color, texture, mucosa, and anatomy of the colon were carefully examined with the scope. Findings:: Anal canal: normal Rectum: normal Sigmoid colon: normal without polyps or inflammatory changes Descending colon: normal without polyps or inflammatory changes Splenic flexure: normal Transverse colon: normal, 3 0.5 cm adenomatous polyps identified, removed with snare. Hepatic flexure: normal Ascending colon: normal without polyps or inflammatory changes Cecum: normal Terminal ileum: not visualized Impression: Transverse colon polyps x 3 Specimens:: Colon polyps Recommendations:: Follow up examination in about THREE years or so Complications:: None Estimated blood obtained (mL): 0
[2022-06-11 10:40] VITALS: BP 84/53; PULSE 69; RESP 17; TEMP 36.9; O2SAT 93
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
[2022-06-11 10:50] VITALS: BP 96/66; PULSE 76; RESP 18; O2SAT 96
[2022-06-11 11:00] VITALS: BP 108/66; PULSE 70; RESP 18; O2SAT 95
[2022-06-11 11:10] VITALS: BP 126/85; PULSE 76; RESP 18; O2SAT 96
== END 2022-06-11 11:30 | disposition home or self-care (01) ==
PROVIDERS: PCP Physician Assistant; Visit Provider Internal Medicine Gastroenterology
PROC: 0DJ08ZZ Inspection of Upper Intestinal Tract, Via Natural or Artificial Opening Endoscopic (ICD-10-PCS; CPT 43235; principal; 2022-06-11 10:00)
DX: R10.9 Unspecified abdominal pain (principal); K63.5 Polyp of colon; K44.9 Diaphragmatic hernia without obstruction or gangrene; Z86.010 Personal history of colon polyps; Z72.0 Tobacco use; Z79.899 Other long term (current) drug therapy
CPT/HCPCS: 43235; 45385; 88305

== ENCOUNTER → 2022-07-09 09:54 | Outpatient (POV) | payer MEDICARE, MEDICAID, SELFPAY ==
--- NOTE | 2022-07-09 10:41 | EXP.PAIN.SOA ---
[facility] Pain Management SOAP Note Subjective:: Patient is a pleasant 67-year-old female who presents via telehealth visit for follow-up. Patient has consented for a audio visit and this is currently taking place at her home. We currently treat the patient for degenerative disc disease of lumbar spine with lumbar radiculopathy symptoms. Patient rates her pain today a 10 out of 10. Patient denies any new trauma or injury. Patient denies any change in location or type of pain she experiences. Patient is currently managed with a intrathecal pain pump of Dilaudid 1 mg/mL with a daily dose of 0.075 mg/day. Patient previously had morphine in her pump however she had extensive issues of bilateral leg swelling, and rash. Patient states following the morphine in her pump she has had continued low back pain that she has been getting injective therapy for. Patient states her injective therapy that she has had in the past did provided significant improvement of over 70% lasting several months. Patient is afraid that she has permanent damage following the reactions to the morphine and states she now uses a wheelchair frequently around the house and that she does have a at home health aide who comes to provide additional help with activities of daily living. Patient denies any side effects with the Dilaudid however she states that she has not been using her boluses because of the previous issues she had on morphine. Patient does state that this medication does help take the edge off of her pain symptoms. Patient states she has recently gone to her cancer doctor and had a checkup to verify nothing new was going on that could be causing her low back pain. Patient states everything went well at this visit and she did recently also have a colonoscopy that only had 3 polyps. Patient has been to her primary care doctor who stated that she did have some abnormal lab work with her thyroid and will be getting this checked out in the upcoming future. Patient's last lumbar epidural steroid injection was in March. She is interested in scheduling another injection at today's visit. Her Damian is [phone]. It has been reviewed and appropriate. Review of Systems: General: No recent weight changes, no fever, no sleep disturbances Respiratory: No cough, no shortness of air, no recurring pulmonary infections Cardiovascular/peripheral vascular: No chest pain, no palpitations, no edema, no shortness of breath Gastrointestinal: No new onset incontinence, normal bowel movements reported Genitourinary: No new onset incontinence Musculoskeletal: Low back pain, bilateral leg pain Psychiatric: [Normal mood/affect] Neurological: [Denies weakness in extremities], [denies balance issues] Objective:: General: Alert and oriented x3, pleasant and cooperative Lungs: Patient is able to say complete sentences without dyspnea Neurological: Speech clear Assessment:: Degenerative disc disease of lumbar spine with lumbar radiculopathy symptoms Plan:: Patient continues to experience significant pain in her low back that radiates into her bilateral lower extremities. I have discussed with the patient regarding having repeat lumbar epidural steroid injections. Risk and benefits were discussed with the patient. She would like to proceed forward with this plan of care. Our telehealth visit did approximately go on from [id number]. We will schedule the patient for a lumbar epidural steroid injection at L4-L5. Patient has been instructed to contact the clinic with any concerns before the next appointment. Dr. Sue has reviewed this note and agrees with this plan of care. This note was dictated using voice recognition software and make contain errors or omissions. -- It Is medically necessary for this patient to continue to have their intrathecal pump refilled at regular intervals. This patient had an intrathecal pain pump implanted after meeting criteria of chronic intractable pain for greater than 3 mo
== END ==
PROVIDERS: Visit Provider Nurse Practitioner Family
DX: M51.16 Intervertebral disc disorders with radiculopathy, lumbar region (principal)
CPT/HCPCS: 99212; G0463

== ENCOUNTER 2022-08-07 12:46 | Day surgery (SDC) | payer MEDICARE, MEDICAID, SELFPAY ==
[2022-08-07 13:16] VITALS: BP 117/63; PULSE 67; RESP 18; TEMP 36.7; O2SAT 98; BMI 27.3
[2022-08-07 13:30] VITALS: BP 105/62; PULSE 76; RESP 18; O2SAT 97
[2022-08-07 13:35] VITALS: BP 105/62; PULSE 76; RESP 18; O2SAT 97
[2022-08-07 13:43] VITALS: BP 152/84; PULSE 68; RESP 18; O2SAT 98
[2022-08-07 15:13] LABS: Free T4 (Free Thyroxine) 0.97 ng/dl (0.78-2.19)
[2022-08-07 15:27] LABS: Thyroid Stimulating Hormone 3.48 uIU/mL (0.465-4.68)
--- NOTE | 2022-08-07 16:09 | EXP.PAIN.PRO ---
Procedure Date: 08/07/22 Time: 16:09 Anesthesiologist:: Todd Sue MD Complications:: None Pre-procedure Diagnosis:: Degenerative disc disease of lumbar spine with lumbar radiculopathy symptoms with scoliosis Post-procedure Diagnosis:: same Indications for Procedure:: This patient is a pleasant 67-year-old white female who we are treating for low back pain with lumbar radiculopathy symptoms. She has severe scoliosis. She did get benefit from her last lumbar epidural steroid injection. It gave her 2 to 3 months relief of her symptoms in the low back. Also her intrathecal pain pump is helping her tremendously. We will do a repeat lumbar pleural steroid injection under fluoroscopy today. Procedure Details:: Informed consent was obtained and the risk and benefits of the procedure was explained to the patient. The patient was taken to the procedure room. The patient was placed prone on the procedure table. The patient was prepped and draped in sterile fashion. C-arm fluoroscopy was used to view the lumbar spine. Skin and subcutaneous tissues were anesthetized using lidocaine. I placed an 18-gauge epidural needle and advanced into the L4-L5 interspace using fluoroscopic guidance and [id number] to air. After confirmation of needle placement in the epidural space with dye I injected 2 mL of lidocaine 1.5% with Depo-Medrol 80 mg. Patient tolerated the procedure well with no complications. Plan and Disposition:: We will follow-up with her in 2 weeks. Will reevaluate her symptoms at that time.
[2022-08-09 10:39] LABS: Thyroid Peroxidase Antibodies 12 IU/mL (0-34)
[2022-08-15 22:51] LABS: Hepatitis C Antibody <0.1
== END 2022-08-07 13:43 | disposition home or self-care (01) ==
PROVIDERS: PCP Physician Assistant; Visit Provider Anesthesiology
DX: M51.16 Intervertebral disc disorders with radiculopathy, lumbar region (principal); M41.9 Scoliosis, unspecified
CPT/HCPCS: 36415; 62323; 84439; 84443; 86376; 87380; J1040; Q9966

== ENCOUNTER → 2022-08-27 14:31 | Outpatient (POV) | payer MEDICARE, MEDICAID, SELFPAY ==
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
[2022-08-27 14:46] VITALS: BP 104/61; PULSE 83; RESP 18; O2SAT 98; BMI 22.1
== END ==
PROVIDERS: PCP Physician Assistant; Visit Provider Nurse Practitioner Family
DX: M51.16 Intervertebral disc disorders with radiculopathy, lumbar region (principal); F17.210 Nicotine dependence, cigarettes, uncomplicated; Z79.899 Other long term (current) drug therapy
CPT/HCPCS: 99212; G0463

== ENCOUNTER → 2022-12-10 10:11 | Outpatient (CLI) | payer MEDICARE, MEDICAID, SELFPAY ==
--- NOTE | 2022-12-10 10:28 | MM_ITS ---
PROCEDURE INFORMATION: Exam: MG Bilateral Screening 3D Mammography Exam date and time: 12/10/2022 10:18 AM Age: 67 years old Clinical indication: Screening examination TECHNIQUE: Imaging protocol: Bilateral Screening tomosynthesis and 2D mammography including computer-aided detection (CAD) when performed. COMPARISON: 1. MG MM DIG SCREENING MAMM BI W/CAD 10/31/2021 1:20 PM 2. MG MM DIG SCREENING MAMM BI W/CAD 08/08/2020 9:35 AM FINDINGS: MAMMOGRAPHY: Breast composition: The breasts are heterogeneously dense, which may obscure small masses. Mass: None. Architectural distortion: None. Calcifications: No suspicious calcifications. Asymmetric density: None. Skin thickening: None. Axillary adenopathy: None. IMPRESSION: No mammographic evidence of malignancy. Annual screening is recommended unless otherwise clinically indicated. ASSESSMENT: BI-RADS Category 1: Negative
== END ==
PROVIDERS: PCP Physician Assistant; Visit Provider Physician Assistant
DX: Z12.31 Encounter for screening mammogram for malignant neoplasm of breast (principal)
CPT/HCPCS: 77063; 77067

== ENCOUNTER → 2022-12-18 10:10 | Outpatient (CLI) | payer MEDICARE, MEDICAID, SELFPAY ==
--- NOTE | 2022-12-18 10:15 | CT_ITS ---
FINAL REPORT CLINICAL HISTORY: ABDOMINAL PAIN COMPARISON: 07/11/2020 FINDINGS: CT OF THE ABDOMEN AND PELVIS WITH CONTRAST Axial CT images of the abdomen and pelvis were obtained after the administration of IV contrast. Coronal reformatted images were also obtained and reviewed.This study was performed with techniques to keep radiation doses as low as reasonably achievable (ALARA). Individualized dose reduction techniques using automated exposure control or adjustment of mA and/or kV according to the patient's size were employed. Abdomen: There is mild scarring in the lung bases. There is a moderate hiatal hernia. The heart is normal in size. The liver has an unremarkable appearance, without evidence of mass or biliary ductal dilatation. The gallbladder surgically absent. The spleen is unremarkable. No adrenal mass is present. The pancreas has an unremarkable appearance. There are 2 nonobstructing stones in the lower pole of the left kidney. The aorta is normal in caliber. There is no free fluid or adenopathy. No mass or abnormal fluid collection is seen. There is levoscoliosis of the spine. An intrathecal catheter is present. Pelvis: The appendix not visualized. There are postoperative changes from hysterectomy. The urinary bladder is unremarkable. No inflammatory process is seen. There is no evidence of mass or adenopathy. There is no evidence of bowel obstruction. IMPRESSION: Two non-obstructing left renal stones. Moderate hiatal hernia. Reviewed, Interpreted and Dictated by Jeevan Campos III, MD Transcribed by Vero Collins Authenticated and [facility]
[2022-12-18 10:44] LABS: Blood Urea Nitrogen 14 mg/dl (7-17); Estimated Glomerular Filt Rate 55 ml/min (>60); GFR (African American) 67 ML/MIN (>60)
== END ==
PROVIDERS: PCP Physician Assistant; Visit Provider Internal Medicine Hematology & Oncology
DX: R11.2 Nausea with vomiting, unspecified (principal); K62.5 Hemorrhage of anus and rectum
CPT/HCPCS: 36415; 74177; 82565; 84520; Q9967

== ENCOUNTER → 2022-12-21 11:28 | Outpatient (POV) | payer MEDICARE, MEDICAID, SELFPAY ==
--- NOTE | 2022-12-21 12:02 | EXP.PAIN.PRO ---
Procedure Date: 12/21/22 Time: 12:02 Anesthesiologist:: Lolly Augustin APRN Complications:: None Pre-procedure Diagnosis:: Degenerative disc disease of lumbar spine with lumbar radiculopathy symptoms Post-procedure Diagnosis:: Same Indications for Procedure:: Patient is a pleasant 67-year-old female who presents today for intrathecal pain pump reprogram and adjustments and follow-up. The patient is being treated for degenerative disc disease of lumbar spine with lumbar radiculopathy. Patient is currently being managed with intrathecal Dilaudid 1 mg/mL with a daily dose of 0.08 mg/day. Patient denies any side effects from this medication. Patient rates pain a 10 out of 10. Patient denies any new trauma or injury. Patient denies any change location or type of pain she experiences. Patient states she continues to have low back pain that radiates into her bilateral lower extremities. Patient does describe this as a aching, throbbing sensation that is worse with increased activity. She does state that it interferes with her ability to perform activities of daily living such as cooking and cleaning. Patient has had injections in the past including lumbar epidurals that did provide upwards of 70% relief or more. Patient does have a significant health history including stomach cancer, interstitial cystitis, family history of colon cancer, scoliosis, fibromyalgia and rheumatoid arthritis. She states that she has recently been to her cancer doctor who ordered a CT scan that was done Wednesday and is still waiting on the results. Patient states that she did have some abnormal lab work found by her primary care provider and that he is wanting to do an additional work-up including on her thyroid levels. Patient states that she has been experiencing some tenderness to touch around her bladder and kidney area. Drug screen is appropriate. Damian has been reviewed and is appropriate. Physical exam General: Alert and oriented x3, no acute distress, pleasant and cooperative Lungs: Respirations even and unlabored, symmetrical chest expansion Eyes: PERRL Musculoskeletal: Flexion and extension of lumbar [spine] somewhat guarded secondary to pain, [antalgic gait noted] Neurological: Speech clear, no gross sensory deficit Procedure Details:: Informed consent was obtained and the risk and benefits of the procedure were explained to the patient. Patient was taken to the procedure room where noninvasive monitoring was placed including noninvasive blood pressure cuff and pulse oximeter. Patient's pump was interrogated and was reprogrammed to Dilaudid 0.088 mg/day. The patient tolerated the procedure well with no complications. Plan and Disposition:: Patient is experiencing significant pain in her low back with limited range of motion. I have discussed with her regarding ordering a lumbar epidural steroid injection. Risk and benefits were discussed with the patient and she would like to proceed forward. She is not on any blood thinners. She has previously had lumbar epidurals that did provide at least 70% improvement. We will schedule her for a lumbar epidural steroid injection L4-L5. Patient tolerated her intrathecal pain pump increased with no complications and was discharged neurologically intact. Patient has been instructed to contact the clinic with any concerns before the next appointment. Dr. Sue has reviewed this note and agrees with this plan of care. This note was dictated using voice recognition software and make contain errors or omissions. -- It Is medically necessary for this patient to continue to have their intrathecal pump refilled at regular intervals. This patient had an intrathecal pain pump implanted after meeting criteria of chronic intractable pain for greater than 3 months and failing conservative treatments. Patient has committed and been compliant to the treatment plan and all planned follow up care. Since implantation of the intra
[2022-12-21 12:47] VITALS: BP 125/81; PULSE 82; RESP 18; O2SAT 97; BMI 25.8
== END | disposition home or self-care (01) ==
PROVIDERS: Visit Provider Nurse Practitioner Family
DX: Z45.1 Encounter for adjustment and management of infusion pump (principal); M51.16 Intervertebral disc disorders with radiculopathy, lumbar region
CPT/HCPCS: 62368; 99213; G0463

== ENCOUNTER 2023-01-08 12:54 | Day surgery (SDC) | payer MEDICARE, MEDICAID, SELFPAY ==
[2023-01-08 13:15] VITALS: BP 126/54; PULSE 69; RESP 20; BMI 26.4
[2023-01-08 13:22] VITALS: BP 110/72; PULSE 76; RESP 18; O2SAT 95
--- NOTE | 2023-01-08 13:39 | EXP.PAIN.PRO ---
Procedure Date: 01/08/23 Time: 13:39 Anesthesiologist:: Todd Sue MD Complications:: None Pre-procedure Diagnosis:: Degenerative disc disease of lumbar spine with lumbar radiculopathy symptoms Post-procedure Diagnosis:: Same Indications for Procedure:: Patient is a pleasant 67-year-old white female who we have been treating for low back pain with lumbar radicular symptoms and scoliosis. She does have an intrathecal Dilaudid pain pump in place. She is doing well with her pain pump. She has increasing pain in her low back and down her left leg. We will plan on lumbar epidural steroid injection under fluoroscopy today to help with pain symptoms. Procedure Details:: Informed consent was obtained and the risk and benefits of the procedure was explained to the patient. The patient was taken to the procedure room. The patient was placed prone on the procedure table. The patient was prepped and draped in sterile fashion. C-arm fluoroscopy was used to view the lumbar spine. Skin and subcutaneous tissues were anesthetized using lidocaine. I placed an 18-gauge epidural needle and advanced into the L4-L5 interspace using fluoroscopic guidance and [id number] to air. After confirmation of needle placement in the epidural space with dye I injected 2 mL of lidocaine 1.5% with Depo-Medrol 80 mg. Patient tolerated the procedure well with no complications. Plan and Disposition:: We will follow-up with this patient in 2 weeks. Will reevaluate symptoms at that time.
[2023-01-08 13:47] VITALS: BP 126/54; PULSE 69; RESP 20
== END 2023-01-08 13:48 | disposition home or self-care (01) ==
PROVIDERS: PCP Physician Assistant; Visit Provider Anesthesiology
DX: M51.16 Intervertebral disc disorders with radiculopathy, lumbar region (principal)
CPT/HCPCS: 62323; J1040; Q9966

== ENCOUNTER → 2023-02-18 10:29 | Outpatient (CLI) | payer MEDICARE, MEDICAID, SELFPAY ==
--- NOTE | 2023-02-18 10:37 | US_ITS ---
FINAL REPORT TECHNIQUE: Real-time grayscale and color ultrasound of the soft tissues of the neck was performed. CLINICAL HISTORY: DYSPHAGIA COMPARISON: None FINDINGS: Ultrasound images of the area of concern in the neck were obtained. Color Doppler images were submitted. There are small subcentimeter lymph nodes bilaterally. There is no dominant mass or fluid collection. There are no significantly enlarged lymph nodes. IMPRESSION: No acute abnormality identified. Reviewed, Interpreted and Dictated by Bradford Ramon MD Transcribed by Alberta Haynes Authenticated and [facility]
--- NOTE | 2023-02-18 10:54 | US_ITS ---
FINAL REPORT TECHNIQUE: Real-time grayscale and color ultrasound of the thyroid was performed. CLINICAL HISTORY: difficulty swallowing COMPARISON: None FINDINGS: The thyroid gland measures 47 mm on the right and 42 mm on the left. The isthmus measures 3 mm. There is a tiny mixed cystic and solid structure in the right lobe of the thyroid measuring 3 mm, TI-RADS 2. IMPRESSION: Right lobe TI-RADS 2 nodule. No follow-up required. Reviewed, Interpreted and Dictated by Bradford Ramon MD Transcribed by Alberta Haynes Authenticated and . [facility]
== END ==
PROVIDERS: PCP Physician Assistant; Visit Provider Physician Assistant
DX: R13.10 Dysphagia, unspecified (principal)
CPT/HCPCS: 76536

== ENCOUNTER 2023-02-21 18:42 | Emergency (ER) | payer MEDICARE, MEDICAID, SELFPAY ==
[2023-02-21 18:43] VITALS: BP 147/78; PULSE 95; RESP 18; TEMP 36.8; O2SAT 95; BMI 23.1
[2023-02-21 19:02] VITALS: BP 108/91; PULSE 87; O2SAT 95
--- NOTE | 2023-02-21 19:16 | HMH.EDGENADL ---
Discharge Plan Disposition Patient Disposition: Home, Self-Care Condition: Good Chief Complaint: Skin/Abscess/Foreign Body Prescriptions Prescriptions: No Action esomeprazole magnesium [Nexium] 40 mg capsule,delayed release(DR/EC) 40 mg PO DAILY tolterodine [Detrol] 2 mg tablet 2 mg PO BID Rx Instructions: baclofen 10 mg tablet 10 mg PO DAILY PRN (Reason: Pain) propranolol 60 mg tablet 60 mg PO BID alprazolam [Xanax] 0.5 mg tablet 0.25 mg PO TID Rx Instructions: dicyclomine 20 mg tablet 20 mg PO QID topiramate [Topamax] 100 mg tablet 100 mg PO DAILY escitalopram oxalate [Lexapro] 10 mg tablet 30 mg PO DAILY aspirin 81 mg tablet,delayed release (DR/EC) 81 mg PO DAILY hydrocortisone [Proctozone-HC] 2.5 % cream with perineal applicator 1 applic MO QD-BID PRN (Reason: hemorrhoids) Qty: 30 3RF diclofenac sodium 100 GM gel 100 gm TP TID PRN (Reason: PAIN) lamotrigine 200 MG tablet 200 mg PO DAILY mometasone 17 GM spray,non-aerosol 2 sprays NS DAILY cholecalciferol (vitamin D3) 1,250 MCG capsule 50,000 unit PO WEEKLY rosuvastatin 10 MG tablet 10 mg PO DAILY ondansetron HCl 4 MG tablet 4 mg PO DAILYP PRN (Reason: Nausea And Vomiting) Qty: 20 0RF pentosan polysulfate sodium 100 MG capsule 100 mg PO TID hydrocortisone acetate 25 MG suppository 25 mg MO DAILY nystatin 100,000 unit/gram cream 1 applic TP TID Referrals Follow up/Referrals: Ashlie Woodward PA [Primary Care Provider] - See instructions Clinical Impressions Clinical Impression: Bug bite Instructions Patient Instructions: DI for Skin Abscess Discharge ED Provider: Eugenio Valentin General Adult HPI General Chief complaint: Skin/Abscess/Foreign Body Stated complaint: insect bite Time Seen by Provider: 02/21/23 18:44 Mode of Arrival: EMS Source of Information: Patient and EMS Limitations: No Limitations Description of Symptoms (Recalled from ER Triage Doc. by RN): 67 yo F presents to ED for evaluation of bug bites diffuse all over body. pt states that she been getting bites off and on for the past month. OTC medication have not been helping nor home remedies. History of Present Illness HPI narrative: This is a 67-year-old female with history of COPD presenting with evaluation for bug bites. Patient states that she lives in a building that is infested with bedbugs and spiders. Has had numerous bug bites on her left upper extremity and bilateral lower extremities and wanted to have them evaluated. They itch, do not burn, no associated fevers, chills, nausea, vomiting, or systemic symptoms. Patient believes there are spiders, but is not sure. Related Data Home Medications Medication Instructions Recorded Confirmed alprazolam 0.5 mg tablet (Xanax) 0.25 mg PO TID Anxiety 08/09/19 01/08/23 aspirin 81 mg tablet,delayed 81 mg PO DAILY Blood thinner 08/09/19 01/08/23 release baclofen 10 mg tablet 10 mg PO DAILY PRN Pain 08/09/19 01/08/23 dicyclomine 20 mg tablet 20 mg PO QID intestinal pain 08/09/19 01/08/23 escitalopram oxalate 10 mg tablet 30 mg PO DAILY Anxiety 08/09/19 01/08/23 (Lexapro) esomeprazole magnesium 40 mg 40 mg PO DAILY GERD 08/09/19 01/08/23 capsule,delayed release (Nexium) propranolol 60 mg tablet 60 mg PO BID High blood pressure 08/09/19 01/08/23 tolterodine 2 mg tablet (Detrol) 2 mg PO BID urinary urgency 08/09/19 01/08/23 topiramate 100 mg tablet (Topamax) 100 mg PO DAILY Pain 08/09/19 01/08/23 diclofenac sodium 3 % topical gel 100 gm TP TID PRN PAIN 08/27/20 01/08/23 hydrocortisone acetate 25 mg 25 mg MO DAILY Pain 12/02/20 01/08/23 rectal suppository cholecalciferol (vitamin D3) 1,250 50,000 unit PO WEEKLY Supplement 12/12/20 01/08/23 mcg (50,000 unit) capsule lamotrigine 200 mg tablet 200 mg PO DAILY BIPOLAR 12/12/20 01/08/23 mometasone 50 mcg/actuation nasal 2 sprays N
[2023-02-21 19:26] VITALS: BP 104/78; PULSE 84; RESP 18; TEMP 36.8; O2SAT 95
== END 2023-02-21 19:29 | disposition home or self-care (01) ==
PROVIDERS: Emergency Provider Emergency Medicine; PCP Physician Assistant
DX: R21 Rash and other nonspecific skin eruption (principal); S51.852A Open bite of left forearm, initial encounter; S81.851A Open bite, right lower leg, initial encounter; S81.852A Open bite, left lower leg, initial encounter; J44.9 Chronic obstructive pulmonary disease, unspecified; W57.XXXA Bitten or stung by nonvenomous insect and other nonvenomous arthropods, initial encounter
CPT/HCPCS: 99283; 99284

== ENCOUNTER 2024-05-12 13:16 | Outpatient (POV) | payer MEDICARE, MEDICAID, SELFPAY ==
[2024-05-12 13:39] VITALS: BP 130/62; PULSE 63; RESP 16; O2SAT 99; BMI 28.3
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
== END 2024-05-12 23:59 | disposition home or self-care (01) ==
LOC: SC.PAIN 13:19
PROVIDERS: Visit Provider Anesthesiology
DX: M54.16 Radiculopathy, lumbar region (principal); M54.50 Low back pain, unspecified; M46.1 Sacroiliitis, not elsewhere classified
CPT/HCPCS: 99212; G0463

== ENCOUNTER 2024-05-24 12:41 | Outpatient (CLI) | payer MEDICARE, MEDICAID, SELFPAY ==
[2024-05-24 13:03] LABS: Basophils % 0.6 % (0.1-2.0); Eosinophils % 0.6 % (0.1-12.0); Hematocrit 37.7 % (37.0-47.0); Hemoglobin 11.9 g/dL (12.2-16.2); Lymphocytes # 1.6 K/mm3 (0.7-4.5); Lymphocytes % 39.9 % (10-50); Mean Corpuscular HGB Conc 31.6 g/dL (31.8-35.4); Mean Corpuscular Hemoglobin 31.4 pg (27.0-31.2); Mean Corpuscular Volume 99.5 fl (81-99); Mean Platelet Volume 8.4 fl (7.4-10.4); Monocytes # 0.3 K/mm3 (0.1-1.0); Monocytes % 6.3 % (1.7-9.3); Neutrophils # 2.1 K/mm3 (1.8-7.8); Neutrophils % 52.7 % (37.0-80.0); Platelet Count 145 K/mm3 (142-424); Red Blood Count 3.79 M/mm3 (4.20-5.40); Red Cell Distribution Width 14.5 % (11.5-17.5)
[2024-05-24 13:48] LABS: Albumin Level 4.3 g/dl (3.5-5.0); Chloride 110 mmol/L (98-107); Sodium 140 mmol/L (136-145)
[2024-05-24 13:51] LABS: Alanine Aminotransferase 14 U/L (12-78); Albumin/Globulin Ratio 1.8 (1.1-1.8); Alkaline Phosphatase 93 U/L (38-126); Amylase 62 U/L (30-110); Aspartate Amino Transferase 20 U/L (14-36); Bilirubin,Total 0.4 mg/dl (0.2-1.3); Blood Urea Nitrogen 14 mg/dl (7-17); Calcium 9.8 mg/dl (8.4-10.2); Carbon Dioxide 26 mmol/L (22.0-30.0); Estimated Glomerular Filt Rate 49 ml/min (>60); GFR (African American) 59 ML/MIN (>60); Globulin 2.4 g/dL (1.3-3.2); Glucose 100 mg/dl (74-100); Lipase 122 U/L (23-300); Total Protein,Serum 6.7 g/dl (6.3-8.2)
[2024-05-24 14:07] LABS: Free T4 (Free Thyroxine) 1.17 ng/dl (0.78-2.19)
[2024-05-24 14:20] LABS: Thyroid Stimulating Hormone 2.55 uIU/mL (0.465-4.68)
== END 2024-05-24 23:59 | disposition home or self-care (01) ==
LOC: LAB 12:43
PROVIDERS: PCP Physician Assistant; Visit Provider Internal Medicine Gastroenterology
DX: K52.9 Noninfective gastroenteritis and colitis, unspecified (principal); R63.4 Abnormal weight loss; Z68.23 Body mass index [BMI] 23.0-23.9, adult
CPT/HCPCS: 36415; 80053; 82150; 83690; 84439; 84443; 85025

== ENCOUNTER 2024-06-09 07:20 | Outpatient (CLI) | payer MEDICARE, MEDICAID, SELFPAY ==
--- NOTE | 2024-06-09 07:21 | CT_ITS ---
FINAL REPORT TECHNIQUE: Axial CT images of the abdomen and pelvis were obtained before and after the administration of IV contrast. Oral contrast was administered.This study was performed with techniques to keep radiation doses as low as reasonably achievable (ALARA). Individualized dose reduction techniques using automated exposure control or adjustment of mA and/or kV according to the patient''s size were employed. CLINICAL HISTORY: lower abdominal pain COMPARISON: 12/18/2022 FINDINGS: Abdomen: There is mild scarring in the lung bases. The heart is normal in size. A moderate hiatal hernia is present. The liver has an unremarkable appearance, without evidence of mass or biliary duct dilatation. The patient is status postcholecystectomy. The spleen is unremarkable. No adrenal masses present. The pancreas has an unremarkable appearance. No suspicious renal masses identified. The aorta is normal in caliber. There is no free fluid or adenopathy. No mass or abnormal fluid collection is seen. Precontrast images demonstrate 2 small nonobstructing stones in the lower pole of the left kidney, stable. Pelvis: The appendix is not well visualized but there are no secondary signs of appendicitis. The patient is status post hysterectomy. The urinary bladder is unremarkable. There is no evidence of mass or adenopathy. There is no evidence of bowel obstruction. There are multiple fluid-filled bowel loops which are nonspecific and could represent enteritis. There is degenerative change and levoscoliosis of the lumbar spine. IMPRESSION: Multiple fluid-filled bowel loops are nonspecific and could represent enteritis. Reviewed, Interpreted and Dictated by Jeevan Campos III, MD Transcribed by Lea Mcguire Authenticated and . [facility]
--- NOTE | 2024-06-09 07:24 | CT_ITS ---
FINAL REPORT TECHNIQUE: Axial CT images of the chest were obtained without contrast. Low-dose protocol was utilized. This study was performed with techniques to keep radiation doses as low as reasonably achievable (ALARA). Individualized dose reduction techniques using automated exposure control or adjustment of mA and/or kV according to the patient's size were employed. CLINICAL HISTORY: SCREENING CURRENT SMOKER 1PPD X57 YEARS COMPARISON: None FINDINGS: CT CHEST WITHOUT, LOW DOSE SCREENING CT Di Vol: 2.90 mGy DLP: 105.77 mGy*cm There is no axillary, mediastinal, or hilar adenopathy. The heart size is normal. There are moderate left coronary artery calcifications. A moderate hiatal hernia is noted. There is no pleural or pericardial effusion. The lung windows show no suspicious mass or nodule. Mild scarring is noted. There is levoscoliosis of the thoracolumbar spine. Limited images of the upper abdomen demonstrate no acute findings. The patient is postcholecystectomy. IMPRESSION: No suspicious mass or nodule. LR Category 1: 12 month follow-up low-dose chest CT is recommended per Fleischner criteria. Reviewed, Interpreted and Dictated by Jeevan Campos III, MD Transcribed by Alberta Haynes Authenticated and [facility]
[2024-06-09] MEDS: IOPAMIDOL-370 (76%);100ML BOTTLE 75 ML IV (08:01)
[2024-06-09] MEDS: SODIUM CHLORIDE 0.9% 10ML SYR (RAD ONLY) 10 ML IV (08:01)
== END 2024-06-09 23:59 | disposition home or self-care (01) ==
LOC: RAD 07:21
PROVIDERS: PCP Physician Assistant; Visit Provider Nurse Practitioner Family
DX: R10.30 Lower abdominal pain, unspecified (principal); R63.4 Abnormal weight loss; K52.9 Noninfective gastroenteritis and colitis, unspecified; R14.0 Abdominal distension (gaseous); Z87.891 Personal history of nicotine dependence; Z68.23 Body mass index [BMI] 23.0-23.9, adult
CPT/HCPCS: 71271; 74178; Q9967

== ENCOUNTER 2024-06-26 11:57 | Outpatient (CLI) | payer MEDICARE, MEDICAID, SELFPAY ==
[2024-06-26 12:00] LABS: Adenovirus F 40/41, stool Not Detected (NotDetected); Astrovirus Not Detected (NotDetected); Clostridium Difficile A/B, PCR Not Detected (NotDetected); Cryptosporidium Not Detected (NotDetected); Cyclospora Cayetanesis Not Detected (NotDetected); Entamoeba histolytica Not Detected (NotDetected); Enteroaggregative E coli Not Detected (NotDetected); Enteropathogenic E coli Not Detected (NotDetected); Enterotoxigenic E coli Not Detected (NotDetected); Giardia lamblia Not Detected (NotDetected); Norovirus Not Detected (NotDetected); Plesimonas Shigalloides, PCR Not Detected (NotDetected); Rotavirus A Not Detected (NotDetected); Salmonella, PCR Not Detected (NotDetected); Sapovirus Not Detected (NotDetected); Shiga-like toxin E coli Not Detected (NotDetected); Shigella Enterovasive E coli Not Detected (NotDetected); Vibrio Cholerae Not Detected (NotDetected); Vibrio, PCR Not Detected (NotDetected); Yersinia Entercolitica, PCR Not Detected (NotDetected)
[2024-06-26 14:49] LABS: Campylobacter Detected (NotDetected)
[2024-06-28 10:23] LABS: Pancreatic Elastase, Fecal 36 (>200)
== END 2024-06-26 23:59 | disposition home or self-care (01) ==
LOC: LAB 10-02 09:32
PROVIDERS: Visit Provider Internal Medicine Gastroenterology
DX: R19.7 Diarrhea, unspecified (principal); R63.4 Abnormal weight loss
CPT/HCPCS: 82656; 87506

== ENCOUNTER 2024-06-30 13:06 | Day surgery (SDC) | payer MEDICARE, MEDICAID, SELFPAY ==
[2024-06-30 13:44] VITALS: BP 136/66; PULSE 61; RESP 16; O2SAT 97; BMI 23.8
[2024-06-30 13:55] VITALS: BP 134/76; PULSE 62; RESP 18
[2024-06-30 13:56] VITALS: BP 134/76; PULSE 62; RESP 18
[2024-06-30 14:11] VITALS: BP 157/78; PULSE 62; RESP 16; O2SAT 99
--- NOTE | 2024-06-30 14:33 | EXP.PAIN.PRO ---
Procedure Date: 06/30/24 Time: 14:15 Anesthesiologist:: Ish Perez CRNA Complications:: None Pre-procedure Diagnosis:: Degenerative disc lumbar spine multilevels. Lumbar radiculopathy. Lumbar postlaminectomy syndrome. Lumbar spondylosis. Post-procedure Diagnosis:: Same. Indications for Procedure:: Patient is a very pleasant 69-year-old female who comes our clinic today for intrathecal pain pump interrogation and refill. Patient currently being managed with hydromorphone 1 mg/mL at 0.0880 mg/day. She is doing very well with her current settings. She is not requesting any changes. She does not reporting side effects or complications. She rates her pain 2/10. Patient is awake alert Gustine x 3. No acute distress. Flexion-extension lumbar spine somewhat guarded secondary to pain. Deep tendon reflexes upper lower extremities normal. Motor strength upper and lower extremities normal. There is no gross sensory deficit. Gait is normal. Procedure Details:: Details of the procedure explained to the patient. The patient was taken to the procedure room placed in the sitting position. The over the pump was cleansed using chlorhexidine as a cleansing solution. The pump was interrogated. The pump was accessed with ease using 22-gauge inch and half needle. 12 mL of solution was withdrawn discarded appropriate. The pump was then filled with 20 cc of solution containing hydromorphone 1 mg/mL. No change in pump rate. Patient tolerated procedure without difficulty. There are no complications. Plan and Disposition:: Patient was discharged without incident.
== END 2024-06-30 14:11 | disposition home or self-care (01) ==
LOC: SC.PAINP 13:07
PROVIDERS: PCP Physician Assistant; Visit Provider Nurse Anesthetist, Certified Registered
DX: M51.16 Intervertebral disc disorders with radiculopathy, lumbar region (principal); M96.1 Postlaminectomy syndrome, not elsewhere classified; M47.26 Other spondylosis with radiculopathy, lumbar region
CPT/HCPCS: 95991

== ENCOUNTER 2024-07-24 12:20 | Day surgery (SDC) | payer MEDICARE, MEDICAID, SELFPAY ==
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
[2024-07-24 12:57] VITALS: BMI 23.8
[2024-07-24 12:58] VITALS: BP 158/76; PULSE 85; RESP 17; TEMP 36.4; O2SAT 98
[2024-07-24] MEDS: LACTATED RINGERS 1000ML 1,000 ML 25 ML IV (13:06)
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
--- NOTE | 2024-07-24 14:12 | P.PCN_ITS ---
[facility] Procedure Note Date: 07/24/24 Time: 14:13 Procedure Note:: Upper Endoscopy Procedure Report: Esophagogastroduodenoscopy with cold biopsies Endoscopost: Bryn Sandoval II, MD Referring Physician: Ashlie Woodward PA-C Date of Procedure: July 24, 2024 Equipment: Olympus GIF 190 standard upper endoscope Sedation: MAC sedation Indications: Mrs. Arredondo is a 69-year-old female who is here for diagnostic upper endoscopy. She has had lower abdominal pain and weight loss. She had gassi ness, bloating, belching and diarrhea. She was having fecal urgency and frequency with intermittent fecal incontinence. 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 The patient did have a CAT scan in December 2022 that showed a hiatal hernia. She has had prior cholecystectomy. All of her scans have shown normal- appearing pancreas. The patient does have chronic diarrhea. She has had multiple adenomatous colon polyps and has a family history of colon cancer. Her lab testing did show very low fecal elastase and I placed her on Creon. She has more formed to the stool. I also recommended ajxc-hit-[id number] FiberCon 2 tablets p.o. every morning. Lab work recently did show borderline anemia with hemoglobin of 11.9. Her liver chemistries were normal. She had normal amylase 62 and lipase 122. Her stool elastase was 36 (low) and she did have Campylobacter that was treated with azithromycin. Her celiac serologies were normal and her IBD serologies including p-ANCA and ASCA IgG and IgA were normal. Procedure: Prior to the procedure, a history and physical exam was performed, and patient's medications and allergies were reviewed. The risks, benefits and alternatives of the sedation and procedure were discussed with the patient. All questions were answered and informed consent was obtained. The patient was brought to the procedure room. Patient identification and proposed procedure were verified by the physician and the nurse. The patient was placed in a left lateral decubitus position and the scope was passed under direct vision. Throughout the procedure, the patient's blood pressure, pulse, and oxygen saturations were monitored continuously. The upper GI endoscopy was accomplished without difficulty. The patient tolerated the procedure well. Findings: The scope was passed directly into the upper esophagus and advanced to the third portion of the duodenum. The post bulbar duodenum and duodenal bulb were normal with normal mucosa and conniventes. The scope was withdrawn through a normal duodenal bulb and pylorus into the stomach. There was bile reflux with mild linear reactive gastropathy of the antrum. There is minimal chronic gastritis of the body and fundus. Biopsies were taken separately from the antrum and body and multiple biopsies were obtained to rule out H. pylori or MALT lymphoma. Upon retroflexion there was a small 2 cm hiatal hernia. The scope was then withdrawn into the esophagus. There was no evidence of reflux esophagitis or Blanchard's. The remainder of the esophageal mucosa was normal. Impression: 1. Bile reflux with mild linear reactive gastropathy and mild chronic gastritis 2. Small 2 cm hiatal hernia Plan: I will follow-up the biopsies. The patient is clinically improved and does have EPI (exocrine pancreatic insufficiency) and is now on Creon. She had Campylobacter that was treated (azithromycin). She is having more formed stools presently. I will proceed with diagnostic colonoscopy.
[2024-07-24 14:18] VITALS: O2SAT 100
--- NOTE | 2024-07-24 14:49 | HMH.PROCNOTE ---
[facility] Procedure Note Date: 07/24/24 Time: 14:49 Procedure Note:: Colonoscopy Procedure Report: Colonoscopy cold snare polypectomy and cold biopsies Endoscopist: Bryn Sandoval II, MD Referring physician: Ashlie Woodward PA-C Date of Procedure: July 24, 2024 Equipment: Olympus 190 variable stiffness pediatric colonoscope Sedation: MAC sedation Indication: Mrs. Arredondo is a 69-year-old female who is here for diagnostic colonoscopy. She has had lower abdominal pain and weight loss. She had gassiness, bloating, belching and diarrhea. She has had fecal urgency and frequency with intermittent fecal incontinence. Her CAT scan and December 2022 showed a normal-appearing pancreas. Her pancreatic fecal elastase was low at 36. She also had Campylobacter that was treated. She had normal celiac and IBD serologies. The patient had lost approximately 20 pounds. She had 4 brothers with colon cancer. She had a colonoscopy with Irma Yost in 2016 and had 2 polyps. Her colonoscopy with in November 2020 revealed 17 polyps all of which were adenomatous. She had a repeat colonoscopy with Emily Abreu MD in May 2022 and had 3 small polyps (tubular adenomas x 3) removed. She has had prior cholecystectomy. The patient has had improvement since starting Creon and dicyclomine and treatment for Campylobacter (azithromycin). Procedure: Prior to the procedure, a history and physical exam was performed, and patient's medications and allergies were reviewed. The risks, benefits and alternatives of the sedation and procedure were discussed with the patient. All questions were answered and informed consent was obtained. The patient was brought to the procedure room. Patient identification and proposed procedure were verified by the physician and the nurse. The patient was placed in a left lateral decubitus position and the scope was passed under direct vision. Throughout the procedure, the patient's blood pressure, pulse, and oxygen saturations were monitored continuously. The colonoscopy was accomplished without difficulty. The patient tolerated the procedure well. Findings: On digital rectal examination there was normal rectal tone. There were no external hemorrhoids but small external tags. The colonoscope was introduced through the anal canal to the rectum and advanced to the cecum. The ileocecal valve and appendiceal orifice were identified. The scope was advanced a short distance into the ileum which appeared grossly normal. The scope was then withdrawn into the colon. There were 2 diminutive polyps (ascending x 1 (3 mm) and descending x 1 (6 mm)). These were both removed via cold snare polypectomy. Random biopsies were taken from the right colon to rule out microscopic colitis. There were mildly scattered diverticuli throughout the descending and sigmoid colon (LEFT colon). The rectum itself was normal. Upon retroflexion within the rectum there were grade 2 internal hemorrhoids. The preparation was excellent throughout with Sandy Preparation Score of 9. The cecal time was 10 minutes. Impression: 1. Diminutive colonic polyps x 2 2. Grade 2 internal hemorrhoids Plan: I will follow-up the biopsies to rule out microscopic colitis. The patient has had clinical improvement since starting Creon and treatment for the Campylobacter. I would recommend repeat surveillance colonoscopy again in 5 years based upon her history of multiple adenomatous colon polyps.
[2024-07-24 14:51] VITALS: BP 86/46; PULSE 68; PULSE 71; RESP 16; TEMP 36.1; O2SAT 95; O2SAT 96
[2024-07-24 15:01] VITALS: BP 101/86; PULSE 86; RESP 16; O2SAT 98
[2024-07-24 15:11] VITALS: BP 107/50; PULSE 78; RESP 16; O2SAT 96
[2024-07-24 15:20] VITALS: BP 120/66; PULSE 73; RESP 16; O2SAT 96
== END 2024-07-24 15:21 | disposition home or self-care (01) ==
PROVIDERS: PCP Physician Assistant; Visit Provider Internal Medicine Gastroenterology
PROC: 0DJ08ZZ Inspection of Upper Intestinal Tract, Via Natural or Artificial Opening Endoscopic (ICD-10-PCS; CPT 43235; principal; 2024-07-24 14:00)
DX: R63.4 Abnormal weight loss (principal); K52.9 Noninfective gastroenteritis and colitis, unspecified; R10.30 Lower abdominal pain, unspecified; K44.9 Diaphragmatic hernia without obstruction or gangrene; Z68.23 Body mass index [BMI] 23.0-23.9, adult; K31.9 Disease of stomach and duodenum, unspecified; K29.70 Gastritis, unspecified, without bleeding; Z80.0 Family history of malignant neoplasm of digestive organs; Z09 Encounter for follow-up examination after completed treatment for conditions other than malignant neoplasm; Z86.0100 Personal history of colon polyps, unspecified; K57.30 Diverticulosis of large intestine without perforation or abscess without bleeding; K63.5 Polyp of colon; K64.1 Second degree hemorrhoids
CPT/HCPCS: 43239; 45380; 45385; 88305; J7120

== ENCOUNTER 2024-11-10 11:07 | Day surgery (SDC) | payer MEDICARE, MEDICAID, SELFPAY ==
--- NOTE | 2024-11-10 11:10 | P.PCN_ITS ---
Procedure Date: 11/10/24 Time: 12:11 Anesthesiologist:: Lolly Augustin APRN Complications:: None Pre-procedure Diagnosis:: Degenerative disc disease of lumbar spine with lumbar radiculopathy symptoms Post-procedure Diagnosis:: Same Indications for Procedure:: Patient is a pleasant 69-year-old female who presents today for intrathecal refill and reprogram. Today she rates her pain a 10 out of 10. Patient does state that she still has her chronic pain patient does state that she has been put on new pancreas medication and that it is helping. Patient does state that she is no longer seeing her psych doctor and that she is no longer getting the alprazolam. Patient states she has not decided whether or not she is going to look for a different provider to get this prescribed back again. Patient states she has been on this medication for decades. Patient does currently have her in trathecal pump of Dilaudid 1 mg/mL with a daily dose of 0.088 mg/day. She denies any side effects from this medication. Her Damian has been reviewed and is appropriate. Physical Exam: General: Alert and oriented x3, no acute distress, pleasant and cooperative Lungs: Respirations even and unlabored, symmetrical chest expansion Eyes: PERRL Musculoskeletal: Flexion and extension of lumbar [spine] somewhat guarded secondary to pain, [antalgic gait noted] Neurological: Speech clear, no gross sensory deficit Procedure Details:: Informed consent was obtained and the risk and benefits of the procedure were explained to the patient. The patient had noninvasive monitoring placed including noninvasive blood pressure cuff and pulse oximeter. Patient's pump was interrogated. The area over the pump was cleansed with chlorhexidine as a cleansing solution. In sterile fashion the pump was accessed with a 22-gauge needle. Approximately 8 mls of the pump solution was removed and discarded appropriately. The pump was then refilled with 20 mL's of Dilaudid 1 mg/mL. The needle was withdrawn and a bandage was placed over the puncture site. The i nfusion rate was reprogrammed and continued at its current dosage. The patient tolerated well with no complication. Plan and Disposition:: Patient tolerated the procedure well with no complications and was discharged neurologically intact. Patient will return to clinic on or before their next intrathecal refill date. We will see the patient back in the clinic at the next intrathecal refill. Patient has been instructed to contact the clinic with any concerns before the next appointment. Dr. Sue has reviewed this note and agrees with this plan of care. This note was dictated using voice recognition software and make contain errors or omissions. -- It Is medically necessary for this patient to continue to have their intrathecal pump refilled at regular intervals. This patient had an intrathecal pain pump implanted after meeting criteria of chronic intractable pain for greater than 3 months and failing conservative treatments. Patient has committed and been compliant to the treatment plan and all planned follow up care. Since implantation of the intrathecal pain pump, the patient has had decreased pain and been more functional. Oral medications have been reduced including intake of oral opioids. Patient continues to do well with intrathecal therapy with decrease in pain symptoms and increase in functional status. Stopping in trathecal medications can lead to life threatening withdrawal, seizures, cardiac arrest, severe pain, and possible . Pumps that are not refilled at regular intervals can be damages and cause and need for replacement. We continually titrate dose and concentration to optimize pain relief and function. We are limited in concentration for certain drugs to safely deliver medications through the pump and stay within the recommendations from the Polyanalgesic Consensus Committee Guidelines. Depending on dose and concentration these pumps may need to be refilled sooner than 3 months as we titrate. A UDS is needed to verify patient's compliance with our office pain contract. This is ordered based off specific treatments related to chronic pain with the potential to abuse certain medications.
[2024-11-10 11:16] VITALS: BP 140/68; PULSE 75; RESP 16; TEMP 36.6; O2SAT 98; BMI 24.4
[2024-11-10 12:05] VITALS: BP 115/64; PULSE 75; RESP 18; O2SAT 99
[2024-11-10 12:06] VITALS: BP 115/64; PULSE 72; RESP 18; O2SAT 99
[2024-11-10 12:17] VITALS: BP 120/56; PULSE 70; RESP 16; O2SAT 100
== END 2024-11-10 12:17 | disposition home or self-care (01) ==
PROVIDERS: PCP Physician Assistant; Visit Provider Nurse Practitioner Family
DX: M51.16 Intervertebral disc disorders with radiculopathy, lumbar region (principal)
CPT/HCPCS: 62370

== ENCOUNTER 2025-03-09 13:42 | Day surgery (SDC) | payer MEDICARE, MEDICAID, SELFPAY ==
[2025-03-09 13:57] VITALS: BP 147/63; PULSE 69; RESP 18; O2SAT 97; BMI 24.7
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
[2025-03-09 14:09] VITALS: BP 151/65; PULSE 69; RESP 18; O2SAT 95
--- NOTE | 2025-03-09 14:18 | P.PCN_ITS ---
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 Today she does rate her pain a 10 out [address] Patient [address] ates she just continues to have a lot going on. Patient is still dealing with a pancreas flareup and is scheduled to go see that specialist coming up soon. She states she is having to have another colonoscopy. Patient states she continues to have the chronic pain in her neck and low back as well as starting to have more knee pain bilaterally. She denies any new falls or injuries. Patient is c urrently managed with Dilaudid 1 mg/mL with a daily dose of 0.088 mg/day. She denies any side effects. Her Damian has been reviewed and is appropriate. Physical Exam: General: Alert and oriented x3, no acute distress, pleasant and cooperative Lungs: Respirations even and unlabored, symmetrical chest expansion Eyes: PERRL Musculoskeletal: Flexion and extension of lumbar [spine] somewhat guarded secondary to pain, [antalgic gait noted] Neurological: Speech clear, no gross sensory deficit Procedure Details:: Informed consent was obtained and the risk and benefits of the procedure were explained to the patient. The patient had noninvasive monitoring placed including noninvasive blood pressure cuff and pulse oximeter. Patient's pump was interrogated. The area over the pump was cleansed with chlorhexidine as a cleansing solution. In sterile fashion the pump was accessed with a 22-gauge needle. Approximately 9.3 mls of the pump solution was removed and discarded appropriately. The pump was then refilled with 20 mL's of Dilaudid 1 mg/mL. The needle was withdrawn and a bandage was placed over the puncture site. The infusion rate was reprogrammed and increased with a 3% raised to Dilaudid 0.091 mg/day. The patient tolerated well with no complication. Plan and Disposition:: Patient tolerated the procedure well with no complications and was discharged neurologically intact. I did discuss with the patient that we can do injections to help with her chronic pain. Patient was counseled to call us when she is able to. Patient states that she is has a lot going on and multiple doctors visits and does not have time to schedule any injections right now but she does want to proceed forward with this option in future. Patient has had injections in the past and stated that they did provide significant improvement. Patient will return to clinic on or before their next intrathecal refill date. We will see the patient back in the clinic at the next intrathecal refill. Patient has been instructed to contact the clinic with any concerns before the next appointment. Dr. Sue has reviewed this note and agrees with this plan of care. This note was dictated using voice recognition software and make contain errors or omissions. -- It Is medically necessary for this patient to continue to have their intrathecal pump refilled at regular intervals. This patient had an intrathecal pain pump implanted after meeting criteria of chronic intractable pain for greater than 3 months and failing conservative treatments. Patient has committed and been compliant to the treatment plan and all planned follow up care. Since implantation of the intrathecal pain pump, the patient has had decreased pain and been more functional. Oral medications have been reduced including intake of oral opioids. Patient continues to do well with intrathecal therapy with decrease in pain symptoms and increase in functional status. Stopping intrathecal medications can lead to life threatening withdrawal, seizures, cardiac arrest, severe pain, and possible . Pumps that are not refilled at regular intervals can be damages and cause and need for replacement. We continually titrate dose and concentration to optimize pain relief and function. We are limited in concentration for certain drugs to safely deliver medications through the pump and stay within the recommendations from the Polyanalgesic Consensus Committee Guidelines. Depending on dose and concentration these pumps may need to be refilled sooner than 3 months as we titrate. A UDS is needed to verify patient's compliance with our office pain contract. This is ordered based off specific treatments related to chronic pain with the potential to abuse certain medications.
[2025-03-09 14:21] VITALS: BP 152/72; PULSE 63; RESP 18; O2SAT 99
== END 2025-03-09 14:21 | disposition home or self-care (01) ==
PROVIDERS: PCP Physician Assistant; Visit Provider Nurse Practitioner Family
DX: Z45.1 Encounter for adjustment and management of infusion pump (principal); M50.10 Cervical disc disorder with radiculopathy, unspecified cervical region; M51.16 Intervertebral disc disorders with radiculopathy, lumbar region; G89.4 Chronic pain syndrome; K85.90 Acute pancreatitis without necrosis or infection, unspecified; K21.9 Gastro-esophageal reflux disease without esophagitis; M41.9 Scoliosis, unspecified; M81.0 Age-related osteoporosis without current pathological fracture; Z88.5 Allergy status to narcotic agent; Z79.82 Long term (current) use of aspirin; Z79.899 Other long term (current) drug therapy
CPT/HCPCS: 62370; 95991

== ENCOUNTER 2025-07-06 14:40 | Outpatient (CLI) | payer MEDICARE, MEDICAID, SELFPAY ==
--- OUTSIDE RECORDS SUMMARY | 2025-07-06 14:43 | XMS_ITS | Data Portability ---
Author Organization [facility] & TARA Vazquez ADMIN Address [address] [place] [id number] Care Team Providers Care Network Relations Consultant Name Role Phone [facility] GINGER MCKEON Medical Oncologist TRACEY DOZIER Urologist Assessment No assessment recorded. Plan of Treatment Reminders Order Date Submit Date Provider Last Modified By Organization Details Last Modified Time Details Appointments None recorded. Lab lipid panel, serum 2024 025 [email or web address] 236 [facility] (Lab), [address], [place], [address], 5 10:17:03 TSH + free T4, serum [email or web address] (Lab), [address], [place], [address], 4 10:00:47 thyroid peroxidase (tpo) Ab, serum [email or web address] (Lab), [address], [place], [address], 4 10:13:01 amylase + lipase, serum 2023 024 [email or web address] [facility] 236 [facility] (Lab), [address], [place], [address], 4 10:01:08 CBC w/ auto diff [email or web address] [place] [address] (Lab), [address], [place], [address], 4 09:59:57 CMP, serum or plasma 2023 024 [email or web address] 236 [facility] (Lab), [address], [place], [address], 4 10:00:24 urinalysis complete, reflex culture 2023 024 [facility] (Lab), [address], [place], [address], 4 12:46:28 vitamin D, 25-hydroxy, total, serum 2023 024 [facility] (Lab), [address], [place], [address], 4 12:46:29 lipid panel, serum 2023 024 [facility] (Lab), [address], [place], [address], 4 12:46:28 urinalysis, dipstick 2023 024 [email or web address] [facility], [address] [place], [address], 4 16:41:07 vitamin D, 25-hydroxy, total, serum [address] (Lab), [address], [place], [address], 4 09:30:17 TSH + free T4, serum [address] (Lab), [address], [place], [address], 4 09:30:17 thyroid peroxidase (tpo) Ab, serum [address] (Lab), [address], [place], [address], 4 09:30:17 lipid panel, serum [address] (Lab), [address], [place], [address], 4 09:30:17 CMP, serum or plasma [address] (Lab), [address], [place], [address], 4 09:30:17 CBC w/ auto diff [address] (Lab), [address], [place], [address], 4 09:30:18 Referral None recorded. Procedures bladder scan (PROC) 2023 024 [email or web address] [facility] [address], [address], 4 16:41:07 Surgeries None recorded. Imaging MAMMO, screening, digital, bilateral [address] (Scheduling), [address], [place], [address], 5 08:50:54 MAMMO, screening, digital, bilateral - due in August 062023 [address] (Scheduling), [address], [place], [address], 5 11:46:49 LDCT, chest, for lung cancer screening 2023 024 [facility] (X-Ray), [address], [place], [address], 4 11:07:42 Medication Orders escitalopra m 20 mg tablet 2024 025 [email or web address] [facility], [address], [place], [address], 5 17:28:46 Elmiron 100 mg capsule 2023 024 [facility], [address], [place], [address], 4 22:02:33 Gemtesa 75 mg tablet [address] [facility], [address], [place], [address], 5 16:59:57 Patient TargetsNo targets recorded. Patient Instructions Encounter Date Encounter Id Patient Instructions Last Modified By Organization Details Last Modified Time 10/19/2023 [id number] well visit, over 65: care instructions Not available 10/19/2023 12:42:37 04/26/2024 [id number] osteoporosis: ca re instructions Not available 04/28/2024 16:38:56 preventing falls : care instructions [email or web address] Not available 04/28/2024 16:38:56 gastroesophageal reflux disease (GERD): care instructions [email or web address] Not available 04/28/2024 16:38:56 well visit, over 65: care instructions [email or web address] Not available 04/26/2024 16:33:37 high cholesterol : care instructions [email or web address] Not available 04/28/2024 16:38:56 Generalized Anxi ety Disorder: Care Instructions [email or web address] Not available 04/28/2024 16:38:56 learning about vitamin D [email or web address] Not available 04/28/2024 16:38:56 low sodium diet (2,000 milligram): care instructions [email or web address] Not available 04/28/2024 16:38:56 Reason for Referral None Reported. Results Created Date Observation Date Name Description Value Unit Range Abnormal Flag Note LastModifiedBy Organization Detail LastModifiedTime 11/12/19 24 11/12/2023 bladd er scan (PROC ) Calculated Residual Urine: 50 ml Not Available [address], [address], 11/12/2023 14:09:06 11/12/1911/12/2023 urina lysis , dipst ick Leukocytes (reference range) trace Not Available [address], [address], 11/12/2023 14:08:03 11/12/19 24 11/12/2023 urina lysis , dipst ick Nitrite (reference range:) negati ve Not Available [address], [address], 11/12/2023 14:08:03 11/12/19 24 11/12/2023 urina lysis , dipst ick Urobilinogen (reference range) 0.2 Not Available [address], [address], 11/12/2023 14:08:03 11/12/19 24 11/12/2023 urina lysis , dipst ick Protein (reference range) negati ve Not Available [address], [address], 11/12/2023 14:08:03 11/12/19 24 11/12/2023 urina lysis , dipst ick pH (reference range 5-8.5) 6.5 Not Available [address], [address], 11/12/2023 14:08:03 11/12/19 24 11/12/2023 urina lysis , dipst ick Blood (reference range:) hemoly zed: Trace Not Available [address], [address], 11/12/2023 14:08:03 11/12/19 24 11/12/2023 urina lysis , dipst ick Specific [place] (reference range) 1.020 Not Available [address], [address], 11/12/2023 14:08:03 11/12/1911/12/2023 urina lysis , dipst ick Ketone (reference range) negati ve Not Available [address], [address], 11/12/2023 14:08:03 11/12/19 24 11/12/2023 urina lysis , dipst ick Bilirubin (reference range) negati ve Not Available [address], [address], 11/12/2023 14:08:03 11/12/19 24 11/12/2023 urina lysis , dipst ick Glucose (reference range) negati ve Not Available [address], [address], 11/12/2023 14:08:03 03/22/2010/31/2021 MAMMO , scree mala, bilat eral No observ ation record ed. Not Available 2023 15:14:01 03/22/20 24 08/08/2020 bone densi ty No observ ation record ed. [email or web address] Not Available 2023 15:14:51 06/29/20 24 06/09/2024 LDCT, chest , for lung cance r scree mala No observ ation record ed. FRANCO [facility] (Med Record) [address], [place], [address], 07/03/2024 15:18:29 07/19/20 24 06/09/2024 LDCT, chest , for lung cance r son medeiros No observ ation record ed. [email or web address], [place], [address], 08/02/2024 07:50:29 Result Notes None recorded. Problems Name Problem SNOMED Code Status Onset Date Resolution Date Notes Provider Name and Address Organization Details Recorded Time Hyperlipi demia 52463796 Active 2021 Not Available [facility] 4 05:05:32 Depressiv e disorder 17769728 Active 2021 Not Available [facility] 4 05:05:32 Gastro-es ophageal reflux disease with ulceratio n 418072547 Active 2021 Not Available [facility] 4 05:05:32 Essential hypertens ion 51716434 Active 2021 Not Available [facility] 4 05:05:32 Mitral valve prolapse 993079866 Active 2021 Not Available [facility] 4 05:05:32 Non-Hodgk in's lymphoma (clinical ) 033435873 Active 2021 Not Available [facility] 4 05:05:32 Scoliosis deformity of spine 063954144 Active 2021 Not Available [facility] 4 05:05:32 Osteoporo sis 31911256 Active 2021 pt recieves reclast to treat her osteoporos is GILBERT Romo [address] [place] [address] Drive, [address], [place], [address] , [facility] & [place] 4 12:34:00 Chronic interstit ial cystitis 928527748 Active 2021 Not Available [facility] 4 05:05:32 History of urinary stone 521669489 Active 2022 Not Available [facility] 4 05:05:32 Vitamin D deficienc y 11063165 Active 2023 GILBERT Romo [address] [place] [address], [address], [place], [address] , [place] - [facility] - [place] & [place] 4 12:40:07 History of malignant neoplasm of colon 315032326 Active 2023 GILBERT Romo [facility], [address], [place], [address] , [place] - [facility] [place] & [place] 4 12:40:32 At increased risk for falls 877925687 Active 2023 GILBERT Romo [address] [place] [address], [address], [place], [address] , [place] [facility] [place] & [place] 4 12:43:50 Does mobilize using cane 198691985 Active 2023 GILBERT Romo [address] [place] [address], [address], [place], [address] , [place] [facility] [place] & [place] 4 12:43:51 Anxiety 65461762 Active 2023 GILBERT Romo [address] [place] [address], [address], [place], [address] , [place] - [facility] - [place] & [place] 4 12:45:04 History of infectiou s disease 926039911 Active 2024 GILBERT Romo [address] [place] [address], [address], [place], [address] , [place] [facility] [place] & [place] 5 16:49:15 Exocrine pancreati c insuffici ency 27901109 Active 2024 GILBERT Romo [address] [place] [address], [address], [address] , [place] [facility] [place] & [place] 5 16:49:17 Problem Notes None recorded. Procedures Surgical History Date Name Laterality Status Provider Name and Address Organization Details Recorded Time 024 Medicare Annual Wellness Visit Health Risk Assessment completed Emmy PATEL - [facility] - [facility] & [place] 04/26/2024 16:24:41 024 Medicare Annual Wellness Visit Health Risk Assessment completed Emmy Mcmullenworth [place] - [facility] - [facility] & [place] 10/19/2023 12:06:57 023 Venipuncture completed Emmy Mcmullenworth [place] - [facility] - [facility] & [place] 12/01/2022 12:12:12 022 Medicare Annual Wellness Visit Health Risk Assessment completed GILBERT Romo [address], [address], [place], [address], [place] - [facility] - [facility] & [place] 07/07/2022 12:28:45 022 Date of Last Colonoscopy completed GILBERT Romo [address], [address], [place], [address], [place] - [facility] - [facility] & [place] 07/07/2022 12:12:33 022 Most Recent Mammogram completed Emmy PATEL - [facility] - [place] & [place] 07/07/2022 11:29:14 021 Colonoscopy completed Shalonda Emery [place] - [facility] - [place] & [place] 03/22/2024 14:41:38 020 Most Recent Bone Density completed Emmy PATEL - [facility] - [place] & [place] 07/07/2022 11:29:30 Partial Hysterectomy completed Emmy PATEL - [facility] - [place] & [place] 07/07/2022 11:33:43 renal lithotripsy completed Emmy PATEL - [facility] - [facility] & [place] 07/07/2022 11:34:15 Cholecystectomy completed Emmy Mcmullenworth [place] - [facility] - [place] & [place] 07/07/2022 11:34:43 laparoscopic staging of Hodgkin's disease or lymphoma completed Emmy Mcmullenworth [place] - [facility] - [place] & [place] 07/07/2022 11:35:30 Imaging Results None recorded. Procedure Notes None recorded. Medical Equipment None Reported. Allergies Allergen ID Allergen Name Allergen Category Reaction Reaction Severity Criticality Documentation Date Start Date Code Code System Note Provider Name and Address Organization Details Recorded Time 83655 codeine medicatio n Not available Not available Not available 07/07/2022 2670 RxNorm Emmy Abel orth null, [place] - [facility] & [place] 2 11:08:03 12438 morphine medicatio n hives severe high 07/07/2022 7052 RxNorm Bernadette [place] null, [place] - [facility] & [place] 5 09:30:46 Medications Name Sig Start Date Stop Date Status Note LastModified by Organization Details LastModified Time lamotrigi ne 200 mg tablet TAKE 1 TABLET BY MOUTH AT BEDTIME active Not Available Not Available No t Available ketoconaz ole 2 % shampoo APPLY 5ML TO SCALP 2 TIMES WEEKLY FOR 8 WEEKS, THEN NEEDED 12/01 completed Not Available Not Available Not Available azithromy june 250 mg tablet TAKE 2 TABLETS BY MOUTH ONCE DAILY FOR 3 DAYS 04/26 completed Not Available Not Available Not Available Elmiron 100 mg capsule TAKE 1 CAPSULE BY MOUTH TWICE DAILY active Not Available Not Available No t Available propranol ol 60 mg tablet TAKE 1 TABLET BY MOUTH TWICE DAILY active Not Available Not Available No t Available aspirin 81 mg tablet,de layed release Take 1 tablet every day by oral route as directed for 90 days. active Not Available Not Available No t Available ondansetr on 8 mg disintegr ating tablet DISSOLVE 1 TABLET IN MOUTH EVERY 6 HOURS NEEDED 04/26 completed Not Available Not Available Not Available alprazola m 0.25 mg tablet TAKE 1 TABLET BY MOUTH THREE TIMES DAILY NEEDED active no longer getting from pharmacy Not Available Not Available Not Available tolterodi ne 2 mg tablet Take 1 tablet by mouth twice daily 2024 active Not Available Not Available Not Avai lable dicyclomi ne 20 mg tablet TAKE 1 TABLET BY MOUTH 4 TIMES DAILY active Not Available Not Available No t Available baclofen 10 mg tablet TAKE 1 TABLET BY MOUTH THREE TIMES DAILY NEEDED WITH FOOD OR MILK 12/01 completed Not Available Not Available Not Available erythromy june 5 mg/gram (0.5 %) eye ointment APPLY A 1CM RIBBON INTO THE LOWER CONJUNCT IVAL SAC(S) IN THE AFFECTED EYE(S) 3 TIMES PER DAY 10/19 completed Not Available Not Available Not Available esomepraz ole magnesium 40 mg capsule,d elayed release Take 1 capsule by mouth once daily 2024 active Not Available Not Available Not Avai lable nystatin 100,000 unit/gram topical cream APPLY A FINGERTI P SIZE AMOUNT OF CREAM TOPICALL Y ON THE SKIN TWICE DAILY active Not Available Not Available No t Available nystatin- triamcino lone 100,000 unit/g-0. 1 % topical cream APPLY TO THE AFFECTED AREA(S) BY TOPICAL ROUTE 2 TIMES PER DAY IN THEMORNI NG AND EVENING 04/26 completed Not Available Not Available Not Available ergocalci ferol (vitamin D2) 1,250 mcg (50,000 unit) capsule TAKE 1 CAPSULE BY MOUTH ONCE A WEEK active Not Available Not Available No t Available nystatin 100,000 unit/gram topical powder APPLY POWDER TOPICALL Y TO AFFECTED AREA TWICE DAILY active Not Available Not Available No t Available azelastin e 137 mcg (0.1 %) nasal spray [place] 1 spray twice a day by intranas al route as directed for 30 days. 2024 active Not Available Not Available Not Avai lable hydroxyzi ne HCl 10 mg tablet Take 1 tablet every 12 hours by oral route as needed for 30 days. 2024 active Not Available Not Available Not Avai lable topiramat e 100 mg tablet Take 1 tablet twice a day by oral route for 30 days. 2024 active Not Available Not Available Not Avai lable fluticaso ne propionat e 50 mcg/actua tion nasal spray,vern pension USE 1 SPRAY(S) IN EACH NOSTRIL ONCE DAILY active Not Available Not Available No t Available escitalop [place] 10 mg tablet TAKE 1 TABLET BY MOUTH ONCE DAILY FOR 30 DAYS 04/26 completed Not Available Not Available Not Available escitalop id[place] 20 mg tablet Take 1 tablet every day by oral route for 90 days. 2024 active Not Available Not Available Not Avai lable rosuvasta tin 10 mg tablet Take 1 tablet by mouth once daily 2024 active Not Available Not Available Not Avai lable Dilaudid 04/26 completed Not Available Not Available Not Available cholecalc iferol (vitamin D3) 1,250 mcg (50,000 unit) capsule TAKE 1 CAPSULE BY MOUTH ONCE A WEEK 12/01 completed Not Available Not Available Not Available lamotrigi ne ER 200 mg tablet,ex tended release 24 hr Take 1 tablet by mouth once daily for 30 days 2024 active Not Available Not Available Not Avai lable GaviLyte- G 236 gram-22.7 4 gram-6.74 gram-5.86 gram oral solution 240 ML ORALLY EVERY 10 MINUTES UNTIL FECAL EFFLUENT IS CLEAR FOLLOW MAILED INSTRUCT IONS 07/07 completed Not Available Not Available Not Available sodium,po tassium,m ag sulfates 17.5 gram-3.13 gram-1.6 gram oral soln DILUTE. DRINK FULL AMOUNT OF FIRST BOTTLE EARLY EVENING BEFORE AND SECOND BOTTLE NEXT MORNING AT LEAST 2 HR BEFORE PROCEDUR E. FOLLOW WITH 960ML OF WATER. 04/26 completed Not Available Not Available Not Available Myrbetriq 50 mg tablet,ex tended release TAKE 1 TABLET BY MOUTH ONCE DAILY FOR 30 DAYS active Not Available Not Available No t Available Creon 36,000 unit-114, 000 unit-180, 000 unit capsule,d elayed release TAKE 2 CAPSULES BY MOUTH WITH MEALS AND 1 CAPSULE WITH SNACKS active Not Available Not Available No t Available Procto-Me d HC 2.5 % topical cream perineal applicato r APPLY A THIN LAYER OF CREAM TO AFFECTED AREA TOPICALL Y TWICE DAILY TO FOUR TIMES DAILY active Not Available Not Available No t Available Arthritis Pain (diclofen ac) 1 % topical gel APPLY 2 GRAMS TOPICALL Y 4 TIMES DAILY 2024 active Not Available Not Available Not Avai lable Gemtesa 75 mg tablet Take 1 tablet every day by oral route. 04/26 completed Not Available Not Available Not Available Vitals Date Recorded Oxygen saturation Oxygen saturation in Arterial blood by Pulse oximetry Heart rate Systolic And Diastolic Provider Name and Address Organization Details Last Updated DateTime 04/18/2024 98 % 98 % 88 /min 124/80 mm[Hg] GILBERT Romo [address] [place] [address], [address], [address] , [place] [facility] [place] & [place] 12:19:25 Date Recorded Body mass index (BMI) Body weight Body temperature Oxygen saturation Oxygen saturation in Arterial blood by Pulse oximetry Systolic And Diastolic Provider Name and Address Organization Details Last Updated DateTime 4 24.6 kg/m2 01533.6 7 g 97.9 [degF] 98 % 98 % 126/80 mm[Hg] GILBERT Romo [address] [place] [address], [address], [place], [address], [place] [facility] & [place] 4 16:37:14 Date Recorded Body height Provider Name an d Address Organization Details Last Updated DateTime 04/26/2024 165.1 cm Kourtney PATEL [facility] & [place] 04/26/2024 15:16:07 Date Recorded Body mass index (BMI) Body weight Body temperature Oxygen saturation Oxygen saturation in Arterial blood by Pulse oximetry Heart rate Systolic And Diastolic Provider Name and Address Organization Details Last Updated DateTime 5 22.5 kg/m2 80469.9 7 g 97 [degF] 98 % 98 % 78 /min 126/70 mm[Hg] Kourtney PATEL [facility] & [place] 5 15:07:31 Date Recorded Body height Provider Name an d Address Organization Details Last Updated DateTime 04/26/2025 165.1 cm Emmy PATEL [facility] & [place] 04/26/2025 14:56:32 Social History Question Answer Notes LastModified by Organizat ion Details LastModified Time Tobacco Smoking Status Current Every Day Smoker Emmy [facility], [place] [facility] & [place] 07/07/2022 11:32:35 Do You Have An Advance Directive? No Information n ot available 12/01/2022 Do You Wear A Helmet When Biking? No Information not available 07/07/2022 Are You Blind Or Do You Have Difficulty Seeing? No Information n ot available 07/07/2022 What Is Your Level Of Caffeine Consumption? None Information not available 07/07/2022 In The 14 Days Before Symptom Onset, Have You Had Close Contact With A Laboratory-confirm ed COVID-19 While That Case Was Ill? No Information n ot available 07/07/2022 In The 14 Days Before Symptom Onset, Have You Had Close Contact With A Person Who Is Under Investigation For COVID-19 While That Person Was Ill? No Information not available 07/07/2022 Have You Been To An Area Known To Be High Risk For COVID-19? No Information not available 07/07/2022 Are You Deaf Or Do You Have Serious Difficulty Hearing? No Information not available 07/07/2022 What Type Of Diet Are You Following? REGULAR Information n ot available 07/07/2022 Have You Processed Blood Or Body Fluids From An Ebola Virus Disease Patient Without Appropriate PPE? No Information not available 07/07/2022 Do You Reside In Or Have You Traveled To An Area Where Ebola Virus Transmission Is Active? No Information not available 07/07/2022 Have There Been Any Changes To Your Family Or Social Situation? No Information no t available 07/07/2022 Have You Recently Or Are You Planning To Travel To An Area With Zika Virus? No Information not available 07/07/2022 What Was The Date Of Your Most Recent Tobacco Screening? 07/07/2022 Information not available 07/07/2022 What Is Your Current Pack Years? 30ormorepack years Information not available 07/07/2022 Do You Have Any Pets? No Information not available 07/07/2022 What Is Your Relationship Status? Single Information not available 12/01/2022 Do You Use Your Seat Belt Or Car Seat Routinely? Yes Information not available 07/07/2022 Are You Sexually Active? No Information not available 12/01/2022 Do You Have Smoke And Carbon Monoxide Detectors In Your Home? Yes Information not available 07/07/2022 At What Age Did You Start Smoking Tobacco? 16 Information not available 07/07/2022 Are You Passively Exposed To Smoke? Yes Information no t available 07/07/2022 How Much Tobacco Do You Smoke? 0.5 PPD Information not available 07/07/2022 Has Tobacco Cessation Counseling Been Provided? Yes Information not available 07/07/2022 On What Date Was Tobacco Cessation Counseling Provided? 07/07/2022 Information not available 07/07/2022 How Many Years Have You Smoked Tobacco? 50 Information not available 07/07/2022 Do You Have Difficulty Walking Or Climbing Stairs? Yes Information not available 07/07/2022 Are You Currently In School? No Information not available 07/07/2022 Sex: Unknown Functional Status Question Answer Note LastModified by Organizat ion Details LastModified Time Do you use any illicit or recreational drugs? No Information not available 07/07/2022 Do you or have you ever used any other forms of tobacco or nicotine? No Information not available 07/07/2022 What is your level of alcohol consumption? None Information not available 07/07/2022 Are you currently employed? No Information not available 07/07/2022 Do you have transportation difficulties? Yes Information not available 07/07/2022 Are you able to walk independently without assistance or assistive devices? YESLIMIT Information not available 07/07/2022 Do you have difficulty doing errands alone? Yes Information not available 07/07/2022 Are you able to care for yourself independently? No Information not available 07/07/2022 Do you have difficulty dressing, bathing, grooming, or toileting? Yes Information not available 07/07/2022 What is your exercise level? None Information not available 07/07/2022 Mental Status Question Answer Note LastModified by Organizat ion Details LastModified Time Do you feel stressed (tense, restless, nervous, or anxious, or unable to sleep at night)? [id number] Information not available 07/07/2022 Do you have difficulty concentrating, remembering or making decisions? No Information no t available 07/07/2022 Family History Relationship Description Onset Age of this Age Resolved Age Notes LastModified by Organization Details LastModified Time Mother Malignant neoplasm of colon dec [email or web address] Not available 2023 13:17:32 Mother Diabetes mellitus [email or web address] Not available 2021 11:31:35 Mother Myocardial infarction [email or web address] Not available 04/03 09:30:57 Mother Hypertensive disorder [email or web address] Not available 2024 09:31:06 Father Coronary arterioscler osis [email or web address] Not available 2021 11:31:45 Father Myocardial infarction dec [email or web address] Not available 11/11 13:17:39 Medical History Condition Response Cancer Y Seizures/Epilepsy Y Arthritis Y Hypertension Y Depression Y High Cholesterol Y Gynecological History Statement/Question Response Abnormal Pap N Date of Last Colonoscopy 06/11/2022 Most Recent Bone Density 08/08/2020 Sexually Active? N STIs/STDs N HPV Vaccine N Date of Last Pap Smear Most Recent Mammogram 10/31/2021 Obstetrics History GPAL:G 0 P 0 0 0 0 Immunizations Vaccine Type Date Status Note Provider Nam e and Address Organization Details Recorded Time zoster recombinant 0 completed Not Available [facility] 09/22/2023 05:05:32 Influenza, high-dose, trivalent, PF 0 completed Not Available [facility] 09/22/2023 05:05:33 pneumococcal polysaccharide PPV23 0 completed Not Available [facility] 09/22/2023 05:05:32 Influenza, split virus, quadrivalent, PF 6 completed Not Available [facility] 09/22/2023 05:05:33 Pneumococcal conjugate PCV 13 8 completed Not Available [facility] 09/22/2023 05:05:33 Hep A, adult 8 completed Not Available [facility] 09/22/2023 05:05:33 Influenza, high-dose, quadrivalent, PF 0 completed Not Available [facility] 09/22/2023 05:05:32 zoster recombinant 0 completed Not Available [facility] 09/22/2023 05:05:32 COVID-19 vaccine, vector-nr, rS-Ad26, PF, 0.5 mL 1 completed Not Available [facility] 09/22/2023 05:05:32 Hep A, adult 0 completed Not Available [facility] 09/22/2023 05:05:33 Influenza, high-dose, trivalent, PF 8 completed Not Available [facility] 09/22/2023 05:05:33 Influenza, high-dose, trivalent, PF 5 completed GILBERT Romo [address] [place] [address] Drive, [address], [place], [address], [place] [facility] & [place] 04/26/2025 17:16:25 Past Encounters Encounter ID Performer Location Encounter Start Date Encounter Closed Date Diagnosis/Indication Diagnosis SNOMED-CT Code Diagnosis ICD10 Code Diagnosis IMO Codes Diagnosis Note [id number] GILBERT Romo [address] [address] 07/07/2022 11:19:11 07/07/2022 14:32:30 Serum thyroid stimulating hormone level outside reference range 047248490 R79.89 Hepatitis C screening 41 7242347 Z11.59 Unsteady when walking 22 024752 R26.89 Rheumatoid arthritis 698 24999 M06.9 Active or passive immunization 359567543 Z23 updated Adult heal th examination 253220729 Z00.01 [id number] GILBERT Romo [place] [id number] 12/01/2022 10:41:41 12/01/2022 14:38:25 Serum thyroid stimulating hormone level outside reference range 181255754 R79.89 Dyslipidemia 489953281 E 78.5 Chronic ki dney disease stage 3 509902329 N18.30 Dysphagia 69410754 R13.1 0 [id number] GILBERT Romo [address] [address] 10/19/2023 12:16:21 10/19/2023 15:54:54 Adult health examination 011237562 Z00.01 Serum thyr oid stimulating hormone level outside reference range 729569072 R79.89 Unsteady when walking 22 619803 R26.89 Rheumatoid arthritis 698 41596 M06.9 follows with Rheumatolo gist Active or passive immunization 266245443 Z23 updated- patient will get RSV, Flu and tetanus at her local pharmacy Menopause 931462374 Z78. 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 Chronic in terstitial cystitis 752913474 N30.10 follows wit urology Depressive disorder 6828 9007 F32.A controlled - follows with psychiatry Essential hypertension 63763775 I10 controlled Gastro-eso phageal reflux disease with ulceration 776311566 K21.00 controlled History of urinary stone 435085435 Z87.442 Hyperlipidemia 52708561 E78.5 Mitral valve prolapse 40 3140364 I34.1 Non-Hodgki n's lymphoma (clinical) 114132462 C85.[address] Crockett Osteoporosis 60921150 M8 1.0 on Reclast Scoliosis deformity of spine 491050556 M41.9 follows wit pain management Vitamin D deficiency 347 12921 E55.9 History of malignant neoplasm of colon 652848540 Z85.[address] Mckeon Does mobil ize using cane 763154673 Z99.89 [facility] for falls 042664686 Z91.81 Anxiety 01275865 F41.9 follows with psych [id number] Tracey Dozier Jr, MD [facility] Urology [address] [address] 11/12/2023 13:13:35 11/12/2023 14:06:56 Urge incontinence of urine 77276290 N39.41 Pt with urge incontinen ce currently worse on Detrol 2 mg bid. Will add Gemtesa samples. Chronic in terstitial cystitis 965417194 N30.10 Pt with h/o IC. Will refill her Elmiron [id number] GILBERT Romo [address] [address] 04/18/2024 11:40:35 04/18/2024 13:11:15 Abdominal pain 42667130 R10.9 Chronic in terstitial cystitis 691524220 N30.10 follows with urology Essential hypertension 20209806 I10 controlled on diet Hyperlipidemia 40946340 E78.5 Vitamin D deficiency 347 25418 E55.9 Non-Hodgki n's lymphoma (clinical) 764836426 C85.[address] Crockett Chronic pain 30748492 G8 9.29 follows with pain managment [id number] GILBERT Romo [address] [address] 04/26/2024 14:56:31 04/26/2024 16:41:12 Screening mammography of bilateral breasts 1696337342 45493 Z12.31 Adult heal th examination 207794589 Z00.01 Serum thyr oid stimulating hormone level outside reference range 514322320 R79.89 Hepatitis C screening 41 5521954 Z11.59 completed negative Rheumatoid arthritis 698 52295 M06.9 follows with Rheumatolo gist Active or passive immunization 021516346 Z23 updated- At [facility] ed risk for falls 818220931 Z91.81 Denies any home Chronic in terstitial cystitis 120791973 N30.10 follows with urology Depressive disorder 9749 9007 F32.A controlled - follows with psychiatry Essential hypertension 83877349 I10 controlled on diet Gastro-eso phageal reflux disease with ulceration 851152303 K21.00 controlled History of urinary stone 641093846 Z87.442 Mitral valve prolapse 40 1312397 I34.1 Hyperlipidemia 75847501 E78.5 Non-Hodgki n's lymphoma (clinical) 794023590 C85.[address] Crockett Osteoporosis 92404171 M8 1.0 on Reclast Scoliosis deformity of spine 898859321 M41.9 follows wit pain management on pain pump Anxiety 85428766 F41.9 follows with psych Does mobil ize using cane 542623804 Z99.89 History of malignant neoplasm of colon 007696792 Z85.[address] Mckeon and DR Wells GI Vitamin D deficiency 347 81636 E55.9 Body mass index 20-24 - normal 458185320 Z68.24 [id number] GILBERT Romo [address] [address] 04/26/2025 14:54:32 04/26/2025 17:09:52 Screening mammography of bilateral breasts 5796918532 61555 Z12.31 Exocrine p ancreatic insufficiency 87760659 K86.[id number] wells History of infectious disease 511687919 Z86.[id number] Wells Depressive disorder 7809 9007 F32.A controlled - Requires i nfluenza virus vaccination 262602172 Z23 902162 Hyperlipidemia 90351413 E78.5 Essential hypertension 62687349 I10 controlled on diet Health Concerns Section Related Observation LastModified by Organization Detai ls LastModified Time None Recorded Concern Status LastModified by Organization Details LastModified Time None Recorded Advance Directives Directive N: Payers Insurance Date Sequence Insurance Name Policy Number Policy Bai Covered Member ID Bai Member ID Guarantor Name 07/02/2025 [place] - [place] A - [facility] (MEDICARE) Shital Vazquez December [id number] 07/02/2025 1 [place] Shital Vazquez December [id number] 07/02/2025 2 [place] Shital Vazquez December [id number] 07/02/2025 2 [place] [facility] CHOICES - FFS/TRADITIO NAL Shital Vazquez December [id number] 07/02/2025 1 [employer] (MEDICARE REPLACEMENT/ ADVANTAGE - HMO) Shital Vazquez December [id number] Notes Date Note Type Note Provider Name and Address Organization Details Recorded Time 4 text/html Medicare Annual Wellness VisitReported by PatientSocial/Behavioral HistoryFor physical activity, patient reportsdoes not exercise on a regular basisandpoor physical condition. For diet and nutrition, patient reportshealthy dietanddiscussed vitamin and supplement use. For fracture risk, patient reportsno history of fractures.Mental Status:For speech/motor difficulties, patient reportsslowed reaction timebut reportsno speech difficulties,no difficulty expressing formulated concepts, andno difficulty with fine manipulative tasks. For orientation, patient reportsno disorientation to time,no disorientation to date, andno disorientation to place. For concentration and memory, patient reportsno decreased concentrating ability,no memory lapses or loss, anddoes not forget words. For depression risk, (dr mehta- follows with [facility]).Functional AbilityFor activities of daily living, patient reportsunable to bathe without assistance (difficulty with her back)andunable to toilet without assistance (difficulty with sitting low)but reportsable to dress with limited or no assistance,able to feed self with limited or no assistance,able to get out of chair or bed with limited or no assistance, andable to groom with limited or no assistance. For instrumental activities of daily living, patient reportsunable to do house work without assistanceandunable to grocery shop without assistancebut reportsable to manage medications with limited or no assistance,able to manage money with limited or no assistance,able to prepare meals with limited or no assistance, andable to use the phone with limited or no assistance(she has an aid that comes 4 hours on wednesday & to help with shopping, house work, etc.she cook snot drive.). For hearing, patient reportsno loss of hearing. For falls risk assessment, patient reportsno frequent falls while walking,no fall in the past year,no fall since last visit, andno dizziness/vertigo. For home safety, patient reportsno unsafe stairs,no unsafe gas appliances,working smoke/co detectors,wears protective head gear for biking/high velocity,use of seatbelts,no fire arms,has hand bars in the bathroom/shower,good lighting in the home,reviewed sun protection, andnumber of motor vehicle accidents 0(lives in government housing by herself). For vision, (wears readers).ROS as noted in the HPI GILBERT Romo [address] [place] [address], [address], [place], [address], [place] [facility] [facility] & [place] 10/19/2023 12:45:18 4 text/html 68 yo WF with h/o IC referred for incontinence. She states it is worse in am when she gets up out of bed. She does not wear pads. She states some occasional leaking with cough. She is currently not on Elmiron for her IC. She is on Detrol 2 mg bid. Tracey Dozier Jr, MD [address] [place] [address], [address], [place], [address], [place] [facility] [facility] & [place] 02/06/2024 22:03:59 4 text/html ROS as noted in the HPI Verbal Consent was obtained for telephonic visit.Patient initiated telephonic encounter since she was unable to come in for her routine care. Be a consultation consisted of 25 minutes where greater than 50% of the time was devoted to counseling and coordinating care including review of the patient record, pertinent lab data and studies as well as discussing diagnostic evaluation workup, plan therapeutic intervention and future disposition of care. This included any additional research needed to obtain further information and formulating the plan of care for this patient. This includes counseling the patient about her disease and diagnosis. Has appt with Oncologist- DR Crockett on 04/26 and is still following with [facility] for her psychiatry. 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 I advised her that I will need to see her in person since she has not been in since last year. She is c/o intermittent diarrhea and constipation and states that she has lost 20 pounds? She c/o abdominal pain x 2-3 months. She has been using mylanta to help with the nausea. She also c/o increase in her GERD. She has reached out to Dr Wells to make follow up and have her colon screen scheduled. She also has upcoming appointment with oncology which will also address. She has been keeping a close eye on her stool and denies any bloody stools. I advised her that she needs to g to the ER for evaluation since it has continued due to her history even if she has to call an ambulance. She still has her pain pump and has nurse comes to her home and changes her pain pump meds and will continue to follow with pain management for same. She is c/o short term memory loss that is worsening and spoke to her psychiatrist and he advised her to follow up with her PCP. GILBERT Romo [address] [place] [address] Drive, [address], [place], [address], [place] [facility] & [place] 04/18/2024 12:29:38 4 text/html Medicare Annual Wellness VisitReported by PatientSocial/Behavioral HistoryFor physical activity, patient reportsdoes not exercise on a regular basisandpoor physical condition. For diet and nutrition, patient reportshealthy dietanddiscussed vitamin and supplement use. For fracture risk, patient reportsno history of fractures.Mental Status:For speech/motor difficulties, patient reportsslowed reaction timebut reportsno speech difficulties,no difficulty expressing formulated concepts, andno difficulty with fine manipulative tasks. For orientation, patient reportsno disorientation to time,no disorientation to date, andno disorientation to place. For concentration and memory, patient reportsno decreased concentrating ability,no memory lapses or loss, anddoes not forget words. For depression risk, (dr mehta- follows with [facility]).Functional AbilityFor activities of daily living, patient reportsunable to bathe without assistance (difficulty with her back)andunable to toilet without assistance (difficulty with sitting low)but reportsable to dress with limited or no assistance,able to feed self with limited or no assistance,able to get out of chair or bed with limited or no assistance, andable to groom with limited or no assistance. For instrumental activities of daily living, patient reportsunable to do house work without assistanceandunable to grocery shop without assistancebut reportsable to manage medications with limited or no assistance,able to manage money with limited or no assistance,able to prepare meals with limited or no assistance, andable to use the phone with limited or no assistance(she has an aid that comes 4 hours on wednesday & to help with shopping, house work, etc.she cook snot drive.). For hearing, patient reportsno loss of hearing. For falls risk assessment, patient reportsno frequent falls while walking,no fall in the past year,no fall since last visit, andno dizziness/vertigo. For home safety, patient reportsno unsafe stairs,no unsafe gas appliances,working smoke/co detectors,wears protective head gear for biking/high velocity,use of seatbelts,no fire arms,has hand bars in the bathroom/shower,good lighting in the home,reviewed sun protection, andnumber of motor vehicle accidents 0(lives in government housing by herself). For vision, (wears readers).ROS as noted in the HPI Saw DR Crockett today. He ordered labs today and wants her to see her GI provider for follow up. GILBERT Romo [address], [address], [place], [address], [facility] - [place] & [place] 04/28/2024 16:39:53 5 text/html ROS as noted in the HPI Routine Follow Up: Shital has not been in office in almost one year. She has transportation issues and unable to get in to be seen. I expressed empathy but explained that unfortunately she has to be see in person due to her multiple medical issues.Non-Hodgkin Lymphoma: Saw Dr Crockett- today and labs. Psychiatry: was dismissed from [facility] due to missing appointments and she has issues with transportation. She understands the seriousness of stopping Xanax abruptly. I advised her to go to the ER for seizure-like activity, Headaches, confusion. She had weaned down to 1/2 tablet daily. She has been without for about 1 month without issues. 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 She understands that she must be seen in person at least once yearly. hyperlipidemia: cook kelsy think she has had recent lipid panel. I will look over her records and labs and review. I will have order mailed to her home. HTN: controlled 126/70. Denies chest pain, SOA, palpitations or dizziness. She still has her pain pump and has nurse comes to her home and changes her pain pump meds and will continue to follow with pain management for same. GILBERT Romo [address] [place] [address] Drive, [address], [place], [address], [facility] - [facility] - [place] & [place] 04/26/2025 17:20:17 OBGyn Episode No OBEpisode recorded.
--- OUTSIDE RECORDS SUMMARY | 2025-07-06 14:43 | XMS_ITS | Referral Summary ---
Author Organization [employer] ([place], [place], [place], [place], [place]) Address [address] [place] [address] Care Team Providers Care Chief Of Service Name Role Phone Ashlie Woodward PA-C Primary Care Provider [phone] Allergies Active Allergy Reactions Criticality Noted Date Comments Codeine Other (See Comments) Low 06/11/2022 Morphine Hives,Other (See Comments) High Medications pentosan polysulfate (ELMIRON) 100 mg capsule Take 1 capsule (100 mg total) by mouth 2 (two) times daily. Active tolterodine (DETROL) 2 MG tablet Take 1 tablet (2 mg total) by mouth 2 (two) times daily. Active dicyclomine (BENTYL) 20 mg tablet Take 1 tablet (20 mg total) by mouth every 6 (six) hours. Active rosuvastatin (CRESTOR) 40 MG tablet Take 1 tablet (40 mg total) by mouth daily. Active esomeprazole (NexIUM) 40 MG capsule Take 1 capsule (40 mg total) by mouth daily. Active propranoloL (INDERAL LA) 60 MG 24 hr capsule Take 1 capsule (60 mg total) by mouth daily. Active fluticasone propionate (FLONASE) 50 mcg/actuation nasal spray 1 spray by each nostril route daily. Active nystatin (MYCOSTATIN) 100,000 unit/mL suspension Take 5 mLs (500,000 Units total) by mouth 4 (four) times daily. Active diclofenac sodium 1 % gel Apply topically 4 (four) times daily. Active escitalopram oxalate (LEXAPRO) 10 MG tablet Take 1 tablet (10 mg total) by mouth daily. Active escitalopram oxalate (LEXAPRO) 20 MG tablet Take 1 tablet (20 mg total) by mouth daily. Active topiramate (TOPAMAX ORAL) Take by mouth. Active ALPRAZolam (NIRAVAM) 0.25 MG dissolvable tablet Take 1 tablet (0.25 mg total) by mouth 3 (three) times daily as needed for anxiety. Max Daily Amount: 0.75 mg Active lamoTRIgine (LaMICtal) 200 MG tablet Take 1 tablet (200 mg total) by mouth daily. Active aspirin 81 MG EC tablet Take 1 tablet (81 mg total) by mouth daily. Active mirabegron (Myrbetriq) 25 mg Tb24 ER tablet Take by mouth daily. Active Active Problems No known active problems Social History Tobacco Use Types Packs/Day Years Used Date Smoking Tobacco: Every Day Cigarettes Smokeless Tobacco: Never Tobacco Cessation:Ready to Q uit: Not Asked; Counseling Given: Not Answered Alcohol Use Standard Drinks/Week Comments Not Currently 0 (1 standard drink = 0.6 oz pur e alcohol) Food Insecurity Answer Date Recorded Food run out past 12 months Not on file 01/29 Food did not last past 12 months Not on file 02/21/2024 Employment Answer Date Recorded Help finding and keeping a job Not on file 0 02/21/2024 Family and Community Support Answer Kaveh e Recorded Help with Day to Day Activities Not on file 02/21/2024 Feeling Lonely or Isolated Not on file 02/20 Educational Attainment Answer Date Luis rded Speak language other than Slovak at home Not on file 02/21/2024 Want help with school or training Not on file 02/21/2024 Substance Use Answer Date Recorded Used prescription meds for non-medical reasons N ot on file 02/21/2024 Used illegal drugs past 12 months Not on file 02/21/2024 Comments Unknown Sex and Gender Information Value Date Recorded Sex Assigned at Not on file Legal Sex Female 5:26 PM CDT Gender Identity Not on file Sexual Orientation Not on file Last Filed Vital Signs Vital Sign Reading Time Taken Comments Blood Pressure 110/62 05/16/2024 11:36 AM EDT Pulse 66 05/16/2024 11:36 AM EDT Temperature - - Respiratory Rate - - Oxygen Saturation - - Inhaled Oxygen Concentration - - Weight 56.2 kg (123 lb 14.4 oz) 024 11:36 AM EDT Height - - Body Mass Index - - Plan of Treatment Not on file Insurance [facility] MEDICAID OF [place] Care Teams Chief Of Service Relationship Specialty Start Date End Date Ashlie Woodward PA-C [address] [place] [address] PCP - General Physician Recreation Aide 05/16/24
--- OUTSIDE RECORDS SUMMARY | 2025-07-06 14:43 | XMS_ITS | Clinical Summary ---
Author Organization [employer] ([place], [place], [place], [place], [place]) Address [address] [place] [address] Care Team Providers Care Manager Reimbursement Name Role Phone Ashlie Woodward PA-C Primary Care Provider [phone] Allergies Active Allergy Reactions Criticality Noted Date [...] Active Active Problems No known active problems Family History Medical History Relation Name Comments Heart attack Father Heart attack Mother Hypertension Mother Relation Name Status Comments Father Mother Social History Tobacco Use Types Packs/Day Years [...] Date Luis rded Speak language other than Romanian at home Not on file 02/21/2024 Want [...] Mass Index - - Plan of Treatment Health Maintenance Due Date Last Done Comments CT Colonography 1953 Colonoscopy 1953 Colorectal Cancer Screening 1953 DXA SCAN 1953 FOBT/FIT 1953 Fit-DNA (Cologuard) 1953 Sigmoidoscopy 1953 Depression Screening (12+) 1965 Hepatitis C Screening 1971 DTAP/TDAP/TD VACCINES (1 - Tdap) 1972 Breast Cancer Screening 1993 Respiratory Syncytial Virus (RSV) Adult or (1 - Risk 60-74 years 1-dose series) 2013 COVID-19 VACCINE (2 - Jansse n risk series) 12/04/2020 11/06/2020 Falls Risk Screening 08/30/2024 Medicare Initial AWV [id number] 04/26/202504/26, 10/19/2023, 07/07/2022 Influenza Vaccine (#1) 2025 , 09/01/2019, 07/24/2018 Tobacco Cessation Counseling and Screening (12+) 05/16/2025 05/16/2024 Pneumococcal 50+ years Completed 09/01/2019, 2017 Shingles Vaccine (Zoster) Completed 03/26/2020, 10/2019 Insurance [facility] MEDICAID OF [place] Care Teams Manager Reimbursement Relationship Specialty Start Date End Date Ashlie Woodward PA-C [address] [place] [address] PCP - General Physician 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
--- NOTE | 2025-07-06 15:34 | XR_ITS ---
FINAL REPORT CLINICAL HISTORY: Right knee pain COMPARISON: None FINDINGS: RIGHT KNEE 3 views of the right knee were obtained. There is no acute fracture or dislocation. There is mild narrowing of the medial compartment of the knee. Mild osteoarthritic changes are noted as well. Soft tissues are unremarkable. IMPRESSION: Mild osteoarthritic changes as described, with no acute bony abnormality. Reviewed, Interpreted and Dictated by Bradford Ramon MD Transcribed by Adri Joiner Authenticated and [facility]
--- NOTE | 2025-07-06 15:34 | XR_ITS ---
FINAL REPORT CLINICAL HISTORY: Left knee pain COMPARISON: None FINDINGS: LEFT KNEE 3 views of the left knee were obtained. There is no acute fracture or dislocation. There is moderate chondrocalcinosis of the menisci in the left knee. There are hypertrophic changes present in the medial compartment and the patellofemoral compartment. Soft tissues are unremarkable. IMPRESSION: Changes of osteoarthritis, with no acute osseous abnormality. Reviewed, Interpreted and Dictated by Bradford Ramon MD Transcribed by Adri Joiner Authenticated and [facility][1]
--- NOTE | 2025-07-06 15:34 | XR_ITS ---
FINAL REPORT CLINICAL HISTORY: Right hip pain COMPARISON: None FINDINGS: RIGHT HIP 3 views of the right hip demonstrate no acute fracture or dislocation. There is advanced narrowing of the right hip joint space with subchondral sclerosis. There is also lumbar scoliosis, with a 45 degree leftward curvature. A spinal stimulator device is noted as well. No soft tissue abnormality is seen. IMPRESSION: Degenerative change of the right hip as described, with no acute bony abnormality. Reviewed, Interpreted and Dictated by Bradford Ramon MD Transcribed by Adri Joiner Authenticated and [facility]
== END 2025-07-06 23:59 | disposition home or self-care (01) ==
PROVIDERS: PCP Physician Assistant; Visit Provider Nurse Practitioner Family
DX: M25.551 Pain in right hip (principal); M25.561 Pain in right knee; M25.562 Pain in left knee; Z79.891 Long term (current) use of opiate analgesic
CPT/HCPCS: 73502; 73562